=== PATIENT | female | born 1955 | race Caucasian/White ===

== ENCOUNTER 2016-09-24 21:26 | Inpatient (IN) | payer OTHER ==
[~2016-09-24] VITALS: Ht 157.5 cm; Wt 69.9 kg
[~2016-09-24 21:26] MED LIST: ASPI81TA82 PO; ATOR80TA PO; EMPA1TAB15 PO; GABA600T PO; IMDU60TA PO; LEVEMIR SQ; LEVO50TA4 PO; METO25TA3 PO; NOVOINJ SQ; PLAV75TA29 PO
[2016-09-24 21:28] VITALS: BP 180/86; PULSE 91; RESP 18; TEMP 97.9; O2SAT 97
[2016-09-24] MEDS ORDERED: SODIUM CHLORID 0.9% 500 ML INJ 500 ML IV ONE (21:30)
[2016-09-24] MEDS ORDERED: SODIUM CHLORIDE 0.9% FLUSH 10 ML FLUSH IVF PRN (21:30)
[2016-09-24] MEDS ORDERED: NITROGLYCERIN 2% OINT 1 GM PACKET TOP ONE (21:30)
[2016-09-24] MEDS: NITROGLYCERIN 0.4 MG SL 25 TABS/BTL SL SCH ×2 (21:30→21:35)
[2016-09-24 21:31] VITALS: O2SAT 98
--- NOTE | 2016-09-24 21:37 | PD ---
HPI Chief Complaint: Chest Pain Time Seen by Provider: 21:28 Travel History International Travel<30 days: No Contact w/Intl Traveler<30days: No History of Present Illness HPI The patient is a 61 year old female who presents to the [facility] emergency department with a history of chest pain that she reports is a dull aching sensation in the center of her chest that began approximately 30 minutes prior to arrival while she was sitting on the couch. The patient does have a history of coronary artery disease. She last had [address] 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 She reports that she has been taking a baby aspirin daily as well as her Plavix. She did not take the Plavix today she usually takes it before bed. The patient reports that the pain was a 10 out of 10 in severity and similar to her anginal related chest pain in the past. She reports that she has also had 6-7 years ago 2 other stents placed by Dr. Nagy. She reports having a history of acid reflux, however it has now been any worse than usual. The patient's blood sugar prior to arrival was 358, however she reports that she did give her Levemir insulin 40 units at 7:30 PM. She last ate at approximately 6 PM. The patient reports that she took 1 baby aspirin today and was given an additional aspirin by ambulance services. The patient was also given one sublingual nitroglycerin and on arrival her chest pain has improved to a 4 out of 10 in severity. She denies having any associated shortness of breath, nausea, vomiting, diaphoresis. She does report that the pain initially was radiating up into her neck, however this resolved prior to arrival with the administration of one sublingual nitroglycerin. Otherwise on review of systems, the patient denies any recent fevers, cough, congestion, abdominal pain, vomiting, diarrhea, urinary symptoms, or neurologic symptoms. FOR[facility]LY [facility] Past Medical History Narrative Medical The patient's past medical history is significant for diabetes mellitus, history of coronary artery disease status post 4 stents in total being placed, history of hypertension, hyperlipidemia, congestive heart failure, COPD, anxiety and depression, history of acid reflux, history of skin cancer status post resection of the left shoulder, history of arthritis, history of toe amputation, history of sleep apnea, and hypothyroid disorder. Hx Anticoagulant Therapy: Yes (ASA) Arthritis: Yes Asthma: No Autoimmune Disease: No Anxiety: Yes Depression: Yes Heart Rhythm Problems: Yes (PACED ) Cancer: Yes (SKIN CANCER LEFT SHOULDER EXCISED ) Cardiovascular Problems: Yes (CAD, ANGINA, HYPERLIPIDEMIA) High Cholesterol: Yes Chest Pain: No Congestive Heart Failure: Yes COPD: Yes Cerebrovascular Accident: No Diabetes: Yes (TYPE II) Endocrine: Yes Gastrointestinal Disorders: No GERD: Yes Glaucoma: No Genitourinary: Yes Hepatitis: Yes Hiatal Hernia: No Hypertension: Yes Immune Disorder: No Implanted Vascular Access Dvce: Yes Kidney Stones: Yes Musculoskeletal: Yes (LEFT HAND STIFF , RT GREAT TO AND SECOND TOE AMPUTATED ) Neurologic: Yes (NEUROPATHY BOTH FEET, INVOLUNTARY SHAKING TO LEFT ARM, OCCAS TO RIGHT ARM) Psychiatric: Yes Reproductive: No Respiratory: No Integumentary: No Migraines: No Renal Failure: No Seizures: No Sickle Cell Disease: No Sleep Apnea: Yes Thyroid Disease: Yes (HYPOTHYROID) Ulcer: Yes (STOMACH ) Past Surgical History Abdominal Surgery: Yes (VENTRAL HERNIA REPAIR; INCISIONAL HERNIA; LAP CHOLECY 2011) AICD: Yes Arteriovenous Shunt: No Body Medical Devices: CARDIAC STENTS X2, MESH IN ABD Cardiac Surgery: Yes (CARDIAC STENTS X 2 ANGIOPLASTY) Cholecystectomy: Yes Ear Surgery: No Endocrine Surgery: No Eye Surgery: Yes (KALEIGH CATARACT EXTRACTION) Genitourinary Surgery: Yes (BLADDER SUSPENSION ) Gynecologic Surgery: Yes (HYSTERECTOMY ) Hysterectomy: Yes Insulin Pump: No Joint Replacement: No Oral Surgery: No Pacemaker: Yes (PACE MAKER AND DEFIB APR 2015) Thoracic Surgery: No Other Surgery: Yes (skin cancer) Social History Alcohol Use: Yes (NOW SOCIALLY HX OF ALCOHOL ABUSE) Tobacco Use: No Substance Use: No Allergies-Medications (Allergen,Severity, Reaction): Coded Allergies: *MDRO Multi-Drug Resistant Organism (Verified Adverse Reaction, Unknown, 03/21/16) MRSA (wound) - 12/2014, (abd. wound) - 04/2015, 05/2015 Reported Meds & Prescriptions Reported Meds & Active Scripts Active Imdur (Isosorbide Mononitrate) 60 Mg Tab 60 Mg PO BID Metoprolol Tartrate 25 Mg Tab 12.5 Mg PO Q12HR Plavix (Clopidogrel Bisulfate) 75 Mg Tab 75 Mg PO DAILY Reported Z.0.synjardy [id number] 1 Tab Tab 1 Tab PO HS Z.0.novolog Penfill1 100 Unit/Ml Ml 12 Units SQ TID Z.0.levemir 100 Units/Ml Inj 34 Units SQ HS Z.[id number].aspir-8181 Mg 81 Mg Tab 81 Mg PO DAILY Z.0.[id number] M1 600 Mg Tab 600 Mg PO TID PRN Z.0.atorvastatin Ca8 80 Mg Tab 80 Mg PO DAILY Z.0.ocragawswurxy49 50 Mcg Tab 50 Mcg PO DAILY Review of Systems Except as stated in HPI: all other systems reviewed are Neg General / Constitutional: No: Fever Eyes: No: Visual changes HENT: No: Headaches, Rhinorrhea, Congestion Cardiovascular: Positive: Chest Pain or Discomfort, No: Dyspnea on exertion Respiratory: No: Cough, Shortness of Breath Gastrointestinal: No: Nausea, Vomiting, Diarrhea, Abdominal Pain, Indigestion, Loss of Appetite Genitourinary: No: Dysuria Musculoskeletal: No: Pain Skin: No Rash Neurologic: No: Weakness, Focal Abnormalities, Change in Mentation, Slurred Speech, Sensory Disturbance Psychiatric: No: Depression Endocrine: No: Polydipsia Hematologic/Lymphatic: No: Easy Bruising Physical Exam Narrative General: The patient is a well-developed well-nourished female in no acute distress. Head and Neck exam: Head is normocephalic atraumatic. Eyes: EOMI, pupils are equal round and reactive to light. Nose: Midline septum with pink mucous membranes Mouth: Dentition unremarkable. Moist mucus membranes. Posterior oropharynx is not erythematous. No tonsillar hypertrophy. Uvula midline. Airway patent. Neck: No palpable lymphadenopathy. No nuchal rigidity. No thyromegaly. Cardiovascular: Regular rate and rhythm without murmurs, gallops, or rubs. No pulse deficit to the extremities and simultaneous auscultation and palpation of her radial artery. Lungs: Clear to auscultation bilaterally. No wheezes, rhonchi, or rales. Abdomen: Soft, without tenderness to palpation in all 4 quadrants of the abdomen. No guarding, rebound, or rigidity. Normal bowel sounds are audible. No tenderness on palpation of McBurney's point. Extremities: No clubbing, cyanosis, or edema. 2+ pulses in all 4 extremities. No calf tenderness on palpation. Back: No spinous process tenderness to palpation. No costovertebral angle tenderness to palpation. Neurologic Exam: Grossly nonfocal. Skin Exam: No rash noted. Intact skin that is warm and dry. Data Data Last Documented VS Vital Signs Date Time Temp Pulse Resp B/P Pulse Ox O2 Delivery O2 Flow Rate FiO2 09/24/16 22:01 92 18 137/65 93 Nasal Cannula 4 09/24/16 21:28 97.9 Orders Electrocardiogram (09/24/16 21:29) B-Type Natriuretic Peptide (09/24/16 21:29) Ckmb (Isoenzyme) Profile (09/24/16 21:29) Complete Blood Count With Diff (09/24/16 21:29) Comprehensive Metabolic Panel (09/24/16 21:29) Magnesium (Mg) (09/24/16 21:29) Prothrombin Time / Inr (Pt) (09/24/16:29) Act Partial Throm Time (Ptt) (09/24/16:29) Troponin I (09/24/16 21:29) Lipase (09/24/16 21:29) Chest, Single Ap (09/24/16 21:29) Ecg Monitoring (09/24/16:29) Bilateral Bp Monitoring (09/24/16 21:29) Iv Access Insert/Monitor (09/24/16 21:29) Oximetry (09/24/16 21:29) Oxygen Administration (09/24/16 21:29) Nitroglycerin 2% Oint (Nitroglycerin 2% (09/24/16 21:30) Sodium Chloride 0.9% Flush (Ns Flush) (09/24/16 21:30) Nitroglycerin Sl (Nitrostat Sl) (09/24/16 21:30) Sodium Chlorid 0.9% 500 Ml Inj (Ns 500 M (09/24/16 21:30) Pantoprazole Inj (Protonix Inj) (09/24/16 21:45) CKMB (09/24/16 21:46) CKMB% (09/24/16 21:46) Heparin Infusion CHRISTY.Q1H (09/24/16 22:44) Heparin Inj (Heparin Inj) (09/24/16 22:45) Heparin-D5w Inj (Heparin-D5w Inj) (09/24/16 22:45) Act Partial Throm Time (Ptt) (09/24/16 22:44) Prothrombin Time / Inr (Pt) (09/24/16 22:44) Cbc No Diff, Includes Plts (09/24/16 22:44) Cbc No Diff, Includes Plts (09/27/16 06:00) Act Partial Throm Time (Ptt) (09/25/16 05:44) Occult Blood (Hemoccult) Stool (09/24/16 22:44) Admit Order (Ed Use Only) (09/24/16 22:53) Labs Laboratory Tests Test 09/24/16 21:46 White Blood Count 7.9 TH/MM3 Red Blood Count 4.67 MIL/MM3 Hemoglobin 13.7 GM/DL Hematocrit 41.5 % Mean Corpuscular Volume 88.8 FL Mean Corpuscular Hemoglobin 29.4 PG Mean Corpuscular Hemoglobin 33.1 % Concent Red Cell Distribution Width 14.0 % Platelet Count 190 TH/MM3 Mean Platelet Volume 10.0 FL Neutrophils (%) (Auto) 67.9 % Lymphocytes (%) (Auto) 22.9 % Monocytes (%) (Auto) 7.6 % Eosinophils (%) (Auto) 1.0 % Basophils (%) (Auto) 0.6 % Neutrophils # (Auto) 5.4 TH/MM3 Lymphocytes # (Auto) 1.8 TH/MM3 Monocytes # (Auto) 0.6 TH/MM3 Eosinophils # (Auto) 0.1 TH/MM3 Basophils # (Auto) 0.0 TH/MM3 CBC Comment DIFF FINAL Differential Comment Prothrombin Time 10.8 SEC Prothromb Time International 1.0 RATIO Ratio Activated Partial 23.9 SEC Thromboplast Time Sodium Level 138 MEQ/L Potassium Level 3.8 MEQ/L Chloride Level 103 MEQ/L Carbon Dioxide Level 24.6 MEQ/L Anion Gap 10 MEQ/L Blood Urea Nitrogen 17 MG/DL Creatinine 1.24 MG/DL Estimat Glomerular Filtration 44 ML/MIN Rate Random Glucose 368 MG/DL Calcium Level 8.2 MG/DL Magnesium Level 2.0 MG/DL Total Bilirubin 0.5 MG/DL Aspartate Amino Transf 24 U/L (AST/SGOT) Alanine Aminotransferase 29 U/L (ALT/SGPT) Alkaline Phosphatase 114 U/L Total Creatine Kinase 118 U/L Creatine Kinase MB 3.2 NG/ML Troponin I 0.10 NG/ML B-Type Natriuretic Peptide 217 PG/ML Total Protein 6.6 GM/DL Albumin 3.4 GM/DL Lipase 382 U/L [facility] Medical Decision Making Medical Screen Exam Complete: Yes Emergency Medical Condition: Yes Medical Record Reviewed: Yes Interpretation(s) Last Impressions Chest X-Ray 09/24/162128 Signed Impressions: Service Date/Time: Saturday, September 24, 2016 21:39 - CONCLUSION: No acute disease. Nathen Aguilar MD Differential Diagnosis Acute coronary syndrome, versus acid reflux, versus congestive heart failure exacerbation, versus pneumonia, versus pneumothorax, versus aortic dissection Narrative Course During the course of the patients emergency department visit, the patients history, examination, and differential diagnosis were reviewed with the patient. The patient had IV access obtained and blood work sent for analysis. The patient was placed on a director of cardiac rehabilitation with oximetry and blood pressure monitoring. The patient's EKG done on arrival shows a sinus rhythm of 94, ST depression is noted in lead 1, 2, aVL, V2, V3, V4, V5, V6. No acute ST segment elevation is noted. This will be compared to a prior EKG for changes. The patient was initially provided sublingual nitroglycerin every 5 minutes 2 when necessary chest pain, nitroglycerin 1 inch the chest wall, normal saline a 500 mL bolus, Protonix 40 mg IV. The patients laboratory studies were reviewed and remarkable for white count 7.9, hemoglobin 13.7, platelets 190 with a normal differential, CMP is remarkable for creatinine 1.24, glucose 368, CPK 118, troponin I 0.10, BNP 217 Radiology studies were reviewed and remarkable for a chest x-ray that shows no acute abnormality. Given the patient's findings on ECG of ST segment depression and an elevated troponin, this is suspicious for non-STEMI. The patient was started on heparin per ID protocol. The patient continues to be chest pain-free after nitroglycerin sublingual and Nitropaste to the chest wall. The patient will be admitted to the hospitalist. The patients results were discussed with the patient, including the plan of care. I explained that further testing and/ or monitoring is indicated based on the patients history, examination, and/ or laboratory findings. Therefore, I recommended admission for additional evaluation. The patient expressed understanding and was agreeable with this plan. The patient was admitted to the hospital in stable condition and [facility] Physician Communication Physician Communication The patient's case was discussed with Dr. Mccormack who did agree to admit the patient for further evaluation and treatment at this time. Diagnosis Primary Impression: Non-STEMI (non-ST elevated myocardial infarction) Admitting Information Admitting Physician Requests: Admit Mellissa Song MD September 24, 2016 21:37
[2016-09-24] MEDS ORDERED: PANTOPRAZOLE SODIUM 40 MG VIAL IV PUSH ONE (21:45)
[2016-09-24 22:01] VITALS: BP 137/65; PULSE 92; RESP 18; O2SAT 93
[2016-09-24 22:01] LABS: AUTOMATED NEUTROPHIL # 5.4 TH/MM3 (1.8-7.7); BASOPHIL % 0.6 % (0.0-2.0); EOSINOPHIL # 0.1 TH/MM3 (0-0.4); HEMATOCRIT 41.5 % (35.0-46.0); HEMO FLAGS DIFF FINAL; LYMPH % 22.9 % (9.0-44.0); LYMPHOCYTE # 1.8 TH/MM3 (1.0-4.8); MEAN CELL VOLUME 88.8 FL (80.0-100.0); MEAN CORPUSCULAR HEMOGLOBIN 29.4 PG (27.0-34.0); MEAN CORPUSCULAR HGB CONC 33.1 % (32.0-36.0); MONO % 7.6 % (0.0-8.0); NEUT % 67.9 % (16.0-70.0); PLATELET COUNT 190 TH/MM3 (150-450); RED BLOOD COUNT 4.67 MIL/MM3 (4.00-5.30); WHITE BLOOD COUNT 7.9 TH/MM3 (4.0-11.0)
--- NOTE | 2016-09-24 22:05 | RADRPT ---
EXAM DATE/TIME: 09/24/2016 21:39 [facility] COMPARISON: No previous studies available for comparison. INDICATIONS : Chest pain MEDICAL HISTORY : Chronic obstructive pulmonary disease. SURGICAL HISTORY : Coronary artery stent. ENCOUNTER: Initial ACUITY: 1 day PAIN SCORE: 2/10 LOCATION: Bilateral chest FINDINGS: A single view of the chest demonstrates the lungs to be symmetrically aerated without evidence of mas s, infiltrate or effusion. The cardiomediastinal contours are unremarkable. Osseous structures are intact.CONCLUSION: No acute disease. Nathen Aguilar MD on September 24, 2016 at 22:03 Board Certified Radiologist. This report was verified electronically.
[2016-09-24 22:10] LABS: APTT (PATIENT) 23.9 SEC (24.3-30.1); PROTHROMBIN TIME - PATIENT 10.8 SEC (9.8-11.6)
[2016-09-24 22:22] LABS: ANION GAP 10 MEQ/L (5-15); AST (GOT) 24 U/L (15-37); BICARBONATE 24.6 MEQ/L (21.0-32.0); BLOOD UREA NITROGEN 17 MG/DL (7-18); CHLORIDE 103 MEQ/L (98-107); GLOMERULAR FILTRATION RATE 44 ML/MIN (>89); POTASSIUM 3.8 MEQ/L (3.5-5.1); SODIUM (NA) 138 MEQ/L (136-145)
[2016-09-24 22:27] LABS: ALKALINE PHOSPHATASE 114 U/L (45-117); ALT (GPT) 29 U/L (10-53); CREATINE KINASE 118 U/L (26-192); TOTAL BILIRUBIN ADULT 0.5 MG/DL (0.2-1.0)
[2016-09-24 22:40] LABS: CKMB 3.2 NG/ML (0.5-3.6)
[2016-09-24] MEDS ORDERED: HEPARIN SODIUM - IV 10,000 UNITS/10 ML VIAL IV ONE (22:45)
[2016-09-24] MEDS ORDERED: HEPARIN-D5W INJ 250 ML IV SCH (22:45)
[2016-09-24 23:09] LABS: HEMATOCRIT 36.7 % (35.0-46.0); MEAN CELL VOLUME 96.9 FL (80.0-100.0); PLATELET COUNT 206 TH/MM3 (150-450); RED BLOOD COUNT 3.79 MIL/MM3 (4.00-5.30); RED CELL DISTRIBUTION WIDTH 12.6 % (11.6-17.2); REVIEW FLAG FINAL; WHITE BLOOD COUNT 6.5 TH/MM3 (4.0-11.0)
[2016-09-24] MEDS ORDERED: PILL SPLITTER OTHER PRN (23:15)
[2016-09-24 23:23] LABS: APTT (PATIENT) 29.7 SEC (24.3-30.1); PROTHROMBIN TIME - PATIENT 11.2 SEC (9.8-11.6)
[2016-09-25] VITALS (24 sets, daily range): BP systolic 126–152; BP diastolic 58–90; PULSE 57–75; RESP 16–18; TEMP 97.5–98.7; O2SAT 96–100
[2016-09-25 04:38] LABS: APTT (PATIENT) 51.5 SEC (24.3-30.1)
[2016-09-25 05:31] LABS: CKMB 18.1 NG/ML (0.5-3.6)
[2016-09-25] MEDS ORDERED: LEVOTHYROXINE SODIUM 50 MCG TAB PO SCH (06:00)
[2016-09-25] MEDS: NITROGLYCERIN 2% OINT 1 GM PACKET TOP SCH ×2 (06:08→11:31)
[2016-09-25] MEDS ORDERED: DEXTROSE 50% IN WATER 50 ML VIAL(D50) IV PUSH PRN (07:00)
[2016-09-25] MEDS ORDERED: GLUCAGON 1 MG/ML VIAL OTHER PRN (07:00)
[2016-09-25] MEDS ORDERED: PLEASE DISCONTINUE PREVIOUS SUPPLEMENTAL SCALE INSULIN ORDERS ONE (07:00)
--- NOTE | 2016-09-25 09:08 | MB ---
cc: KELLY ROMEO MD DATE OF CONSULTATION 09/25/2016 INDICATION [id number] LA. HISTORY OF PRESENT ILLNESS This is a 61-year-old female. She has a prior history of known heart disease and percutaneous intervention back in February of 2016. She presents to the emergency department with acute onset of substernal chest pain. She stated the pain was about 10/10 and similar to her prior anginal equivalent. She has diabetes, hyperlipidemia and hypertension. She is currently chest pain-free, but her troponin went from 0.10 up to 5.36. We are consulted for further recommendations. PAST MEDICAL HISTORY/PAST SURGICAL HISTORY 1. Diabetes. 2. History of coronary disease with prior percutaneous intervention. 3. Hypertension. 4. Hyperlipidemia. 5. CHF. 6. COPD. 7. Anxiety, depression. 8. Gastroesophageal reflux disease. 9. Skin cancer status post resection. 10. Arthritis. 11. Toe amputation. 12. Sleep apnea. 13. Hypothyroidism. 14. Neuropathy. 15. Hiatal hernia. 16. Incisional hernia. 17. Laparoscopic cholecystectomy in 2011. 18. Bilateral cataracts. 19. Bladder suspension. 20. Pacemaker and defibrillator in April of 2015. SOCIAL HISTORY Does report occasional alcohol use. Denies any tobacco or drug use. ALLERGIES No known drug allergies. MEDICATIONS 1. NovoLog. 2. Levemir. 3. Aspirin. 4. Gabapentin. 5. Atorvastatin. 6. Levothyroxine. FAMILY HISTORY Denies any family history of early coronary disease or sudden cardiac . REVIEW OF SYSTEMS A 12-point review systems was performed, negative unless otherwise noted in the History of Present Illness. PHYSICAL EXAMINATION VITAL SIGNS: Temperature is 98.7, pulse 21, blood pressure 152/74 mmHg. GENERAL: Alert and oriented x 3, in no acute distress. HEENT: Exam shows pupils round, reactive to light and accommodation. Extraocular movements are intact. No elevation in jugular venous distention. No thyromegaly or lymphadenopathy. No carotid bruits. LUNGS: Clear to auscultation bilaterally. CARDIOVASCULAR: Regular rate and rhythm without murmurs, rubs or gallops. ABDOMINAL EXAM: Nontender, nondistended. Good bowel sounds. No hepatosplenomegaly. EXTREMITIES: No clubbing, cyanosis or edema. Decreased pulses throughout. Cranial nerves intact. Motor and sensory grossly intact. LABORATORY DATA Sodium 138, potassium 3.8, BUN 17, creatinine 1.24. Troponin is high at 5.36, BNP is 217, INR is 1. WBC 6.5, hemoglobin is 12.1, platelet count is 206. ELECTROCARDIOGRAM Sinus rhythm, ST depression. Anterolateral leads with poor R-wave progression. ASSESSMENT 1. [id number] LA. 2. History of prior percutaneous intervention to the left circumflex coronary artery in February of 2016. There is severe multivessel disease. 3. Diabetes. 4. Hypertension. 5. Hyperlipidemia. PLAN We have been attempting to try to medically manage her symptoms. She did fairly well since last February but now has recurrence of her symptoms. She had prior percutaneous intervention of the circumflex but both the right coronary and the left anterior descending coronary also had significant disease. The right coronary is a very small caliber size, not sure if it is amendable to percutaneous intervention and left anterior descending had a calcified, angulated bend in the mid-segment. Given her elevated troponin symptoms, we are going to need to repeat cardiac catheterization. We will have to assess to that point whether there is a revascularization strategy, either percutaneously or bypass. We will try to determine timing for heart catheterization, either later today or tomorrow. MD CARLOS Silva/SSB /8:17 AM /8:47 AM MTDD
[2016-09-25] MEDS: MEDIUM DOSE INSULIN NOVOLOG SUPPLEMENTAL SCALE SQ SCH ×3 (09:14→21:28)
[2016-09-25] MEDS: ATORVASTATIN 80 MG TAB PO SCH (09:15)
[2016-09-25] MEDS: METOPROLOL TARTRATE 25 MG TAB PO SCH ×2 (09:15→21:29)
--- NOTE | 2016-09-25 09:44 | HHI.HP ---
HPI Service [facility] Hospitalists Primary Care Physician Kavin Messer, DO Admission Diagnosis Non-STEMI Chief Complaint: Chest pain Travel History International Travel<30 Days: No Contact w/Intl Traveler <30 Da: No Traveled to Known Affected Are: No History of Present Illness Ms. Montero is a 61 y/o female with CAD with hx of previous stenting x 4 with the last intervention in 02/2016, poorly controlled diabetes, HTN and hyperlipidemia who presented to the ED at [facility] on 09/24/16 with complaints of chest pain which is described as a dull aching sensation in the center of her chest that began approximately 30 minutes prior to arrival while she was sitting on the couch. The patient reported that the pain initially was a 10 out of 10 in severity and similar to her anginal related chest pain in the past. The patient was given ASA and one sublingual nitroglycerin en route to the hospital and on arrival her chest pain had improved in severity. She denies having any associated shortness of breath, nausea, vomiting, or diaphoresis. She does report that the pain initially was radiating up into her neck, however this resolved prior to arrival with the administration of one sublingual nitroglycerin. Pt has been following outpt with Dr. Laws and recently had an outpt Lexiscan on 09/07/16 which noted mildly reduced LV systolic function, moderate inferolateral and inferoapical infarct with minimal herson-infarct ischemia extending into the mid inferior wall. She reports that she has been taking a baby aspirin daily as well as her Plavix. Pts labs at admission noted that her Troponin has trended up from 0.10 to 5.36. She was started on Nitro, heparin gtt, BB, statin. She has been seen by Cardiology and is planned for [facility] for tomorrow. Pt is currently chest pain free. The patient's blood sugar in the ED was 368, however she reports that she did give her Levemir insulin 40 units at 7:30 PM. Her most recent blood sugar is 295 this morning. She is on NovoLog SSI. The patient denies any recent fevers, cough, congestion, abdominal pain, vomiting, diarrhea, urinary symptoms, or neurologic symptoms. Review of Systems Constitutional: DENIES: Diaphoretic episodes, Fever, Dizziness Eyes: DENIES: Vision loss Ears, nose, mouth, throat: DENIES: Hearing loss Respiratory: DENIES: Cough, Shortness of breath Cardiovascular: COMPLAINS OF: Chest pain, DENIES: Palpitations, Dyspnea on Exertion, Lower Extremity Edema Gastrointestinal: DENIES: Abdominal pain, Nausea, Vomiting Genitourinary: DENIES: Dysuria Musculoskeletal: DENIES: Neck pain Integumentary: DENIES: Rash Neurologic: DENIES: Headache Psychiatric: DENIES: Confusion Past Family Social History Past Medical History Diabetes mellitus, poorly controlled (Hgb A1C 10.5% in 07/2016) with diabetic nephropathy, retinopathy and neuropathy HTN Hyperlipidemia CAD s/p PTCA with stent x 4 Unstable angina Macular degeneration Hx of skin cancer on left shoulder Obesity GERD Depression Arthritis Obstructive sleep apnea Hypothyroidism Past Surgical History [facility] 02/2016 --> severe multivessel CAD, successful PCI with RIYA x 2 to the left circumflex, normal left sided filling pressure. [facility] and stent placement x [address] Nagy Ventral hernia repair 2013 Incisional hernia repair Cholecystectomy 2011 Bladder suspension Cataract surgery Total abdominal hysterectomy Skin cancer removal Abdominal hernia repair and panniculectomy 2014 Reported Medications -Imdur 60 Mg PO BID -Plavix 75 Mg PO DAILY -Synjardy [id number] 1 Tab PO HS -Aspirin 81 Mg PO DAILY --Ranexa 500mg PO BID --HumaLOG KwikPen 10 Units prior to meals if BS greater than 150 --Levemir 50 Units SQ HS --Gabapentin 600 Mg PO HS PRN --Atorvastatin 80 Mg PO HS --Levothyroxine 112 Mcg PO DAILY Allergies: Coded Allergies: *MDRO Multi-Drug Resistant Organism (Verified Adverse Reaction, Unknown, 03/21/16) MRSA (wound) - 12/2014, (abd. wound) - 04/2015, 05/2015 Family History Brother had CAD/CABG in his 60's Social History Denies any alcohol, tobacco or illicit drug use Pt lives alone. She has one grown daughter. Pt works as a station cashier Physical Exam Vital Signs Vital Signs Date Time Temp Pulse Resp B/P Pulse Ox O2 Delivery O2 Flow Rate FiO2 09/25/16 07:00 97.5 71 17 152/74 96 09/25/16 06:00 65 09/25/16 04:36 98.0 73 16 145/90 100 09/25/16 04:00 139/65 99 09/25/16 03:19 73 18 148/65 100 09/25/16 02:34 71 18 129/60 99 Nasal Cannula 2 09/25/16 01:05 75 18 126/61 99 09/24/16 22:01 92 18 137/65 93 Nasal Cannula 4 09/24/16 21:35 18 09/24/16 21:33 92 09/24/16 21:31 98 Room Air 09/24/16 21:31 98 Room Air 09/24/16 21:28 97.9 91 18 180/86 97 Physical Exam GENERAL: This is a well-nourished, well-developed patient, in no apparent distress. HEENT: Atraumatic. Normocephalic. No temporal or scalp tenderness. No scleral icterus. Airway patent. NECK: Trachea midline, supple, nontender. CARDIO: Regular. RESP: CTA bilaterally. No wheezes, rales, or rhonchi. ABD: +BS, soft, non-tender, nondistended. EXT: Extremities without clubbing, cyanosis, or edema. NEURO: Awake and alert. Motor and sensory grossly within normal limits. Normal speech. Laboratory Laboratory Tests Test 09/24/16 09/24/16 09/25/16 09/25/16 21:46 23:00 00:05 04:11 White Blood Count 7.9 6.5 Red Blood Count 4.67 3.79 Hemoglobin 13.7 12.1 Hematocrit 41.5 36.7 Mean Corpuscular Volume 88.8 96.9 Mean Corpuscular Hemoglobin 29.4 32.0 Mean Corpuscular Hemoglobin 33.1 33.0 Concent Red Cell Distribution Width 14.0 12.6 Platelet Count 190 206 Mean Platelet Volume 10.0 9.3 Neutrophils (%) (Auto) 67.9 Lymphocytes (%) (Auto) 22.9 Monocytes (%) (Auto) 7.6 Eosinophils (%) (Auto) 1.0 Basophils (%) (Auto) 0.6 Neutrophils # (Auto) 5.4 Lymphocytes # (Auto) 1.8 Monocytes # (Auto) 0.6 Eosinophils # (Auto) 0.1 Basophils # (Auto) 0.0 CBC Comment DIFF FINAL Differential Comment Prothrombin Time 10.8 11.2 Prothromb Time International 1.0 1.0 Ratio Activated Partial 23.9 29.7 51.5 Thromboplast Time Sodium Level 138 Potassium Level 3.8 Chloride Level 103 Carbon Dioxide Level 24.6 Anion Gap 10 Blood Urea Nitrogen 17 Creatinine 1.24 Estimat Glomerular Filtration 44 Rate Random Glucose 368 Calcium Level 8.2 Magnesium Level 2.0 Total Bilirubin 0.5 Aspartate Amino Transf 24 (AST/SGOT) Alanine Aminotransferase 29 (ALT/SGPT) Alkaline Phosphatase 114 Total Creatine Kinase 118 153 256 Creatine Kinase MB 3.2 18.1 Troponin I 0.10 1.15 5.36 B-Type Natriuretic Peptide 217 Total Protein 6.6 Albumin 3.4 Lipase 382 Creatine Kinase MB % 7.1 Result Diagram: 09/24/16 2300 09/24/162145 Imaging Last Impressions Chest X-Ray 09/24/162128 Signed Impressions: Service Date/Time: Saturday, September 24, 2016 21:39 - CONCLUSION: No acute disease. Nathen Aguilar MD Septic Shock Reassessment Heart: Regular rate and rhythm Lungs: Clear Skin: Warm Assessment and Plan Problem List: (1) Non-STEMI (non-ST elevated myocardial infarction) Status: Acute Plan: - Pt admitted with chest pain and found to have elevated CE/NSTEMI - Pt has a hx of CAD and previous C 02/2016 --> severe multivessel CAD, successful PCI with RIYA x 2 to the left circumflex. - Pt had Nitro paste applied - Heparin gtt. - BB/Statin - Cardiology is following and pt is planned for [facility] for tomorrow. - 2D echo ordered - Discussed the case with Dr. Laws and pt to be resumed on her Imdur, Ranexa and Plavix as well. - Telemetry - Monitor labs - Monitor clinical status closely - DVT prophylaxis (2) CAD (coronary artery disease) Status: Chronic Plan: - Pt with hx of CAD and unstable angina. - Pt had recently been started on Ranexa 500mg po BID and also takes Imdur 60mg po BID - See. above. (3) Diabetes Status: Chronic Plan: - NovoLog SSI - Levemir - Accu checks - Gabapentin 600mg po HS PRN for neuropathic pain resumed from home meds (4) Hypertension Status: Chronic Plan: - Pt has been started on Metoprolol 12.5mg po BID - Monitor (5) Hypothyroid Status: Chronic Plan: - Resume home meds Assessment and Plan Patient examined. Assessment and plan formulated with Cintia Bella PA-C. I agree with the above. Case d/w Dr. Laws, Cardiology. Pt planned for [facility] Pt currently on heparin drip Pt receiving imdur, renexa, plavix, metoprolol, lipitor Physician Certification 2 Midnight Certification Type: Admission for Inpatient Services Order for Inpatient Services The services are ordered in accordance with Medicare regulations or non- Medicare payer requirements, as applicable. In the case of services not specified as inpatient-only, they are appropriately provided as inpatient services in accordance with the 2-midnight benchmark. Estimated LOS (days): 2 2 days is the estimated time the patient will need to remain in the hospital, assuming treatment plan goals are met and no additional complications. Post-Hospital Plan: Not yet determined Problem Qualifiers (1) Diabetes: Qualified Code: E11.8 - Type 2 diabetes mellitus with complication, with long- term current use of insulin Cintia Bella September 25, 2016 09:44 Prosper Shaw DO September 25, 2016 12:05
--- NOTE | 2016-09-25 11:13 | EKG ---
Date Performed: 09/25/2016 Time Performed: 04:52:48 PTAGE: 61 years EKG: Sinus rhythm Lateral ST-T changes are nonspecific Borderline ECG PREVIOUS TRACING : 09/25/2016 03.17 DOCTOR: Nacho Melendez Interpretating Date/Time 09/25/2016 11:12:11
--- NOTE | 2016-09-25 11:14 | EKG ---
Date Performed: 09/25/2016 Time Performed: 03:17:36 PTAGE: 61 years EKG: Sinus rhythm NONSPECIFIC ST & T-WAVE ABNORMALITY BORDERLINE ECG PREVIOUS TRACING : 09/24/2016 21.31 DOCTOR: Nacho Melendez Interpretating Date/Time 09/25/2016 11:12:51
[2016-09-25] MEDS ORDERED: SIMETHICONE 125 MG CHEWABLE TAB PO ONE (11:15)
--- NOTE | 2016-09-25 11:17 | EKG ---
Date Performed: 09/24/2016 Time Performed: 21:31:07 PTAGE: 61 years EKG: Sinus rhythm ST DEPRESSION, CONSIDER SUBENDOCARDIAL INJURY ABNORMAL ECG PREVIOUS TRACING : 03/21/2016 05.33 DOCTOR: Nacho Melendez Interpretating Date/Time 09/25/2016 11:14:21
[2016-09-25] MEDS: CLOPIDOGREL 75 MG TAB PO SCH (11:30)
[2016-09-25] MEDS: PANTOPRAZOLE SODIUM 40 MG VIAL IV PUSH SCH (11:31)
[2016-09-25] MEDS: SODIUM CHLOR 0.9% 1000 ML INJ 1,000 ML IV SCH ×2 (11:32→21:31)
[2016-09-25] MEDS: RANOLAZINE 500 MG EXTENDED RELEASE TAB PO SCH ×2 (11:37→21:28)
[2016-09-25 12:37] LABS: CKMB 19.2 NG/ML (0.5-3.6)
[2016-09-25 13:51] LABS: APTT (PATIENT) 100.4 SEC (24.3-30.1)
[2016-09-25] MEDS ORDERED: HEPARIN-NS/PF INJ 500 ML ONE (13:53)
[2016-09-25] MEDS: SIMETHICONE 125 MG CHEWABLE TAB PO SCH ×2 (14:00→21:29)
[2016-09-25] MEDS ORDERED: MIDAZOLAM HCL 2 MG/2 ML VIAL ONE (14:01)
--- NOTE | 2016-09-25 14:58 | EC ---
Study Study Date:09/25/2016 STUDY CONCLUSIONS SUMMARY - Left ventricle: The cavity size was normal. Wall thickness was normal. Systolic function was at the lower limits of normal. The estimated ejection fraction was in the range of 50% to 55%. Mild hypokinesis of the inferior myocardium. - Aortic valve: Transvalvular velocity was minimally increased. There was mild stenosis. Valve area: 1.99cm^2 (Vmax). - Mitral valve: Mild regurgitation. - Tricuspid valve: Mild regurgitation. If LV function is below 40, please consider prescribing an ACEI or ARB or document rationale for non-use. PROCEDURE DATA STUDY STATUS: Elective. Procedure: Transthoracic echocardiography. Image quality was good. Scanning was performed from the parasternal, apical, and subcostal acoustic windows. Study completion: The patient tolerated the procedure well. Transthoracic echocardiography. M-mode, complete 2D, complete spectral Doppler, and color Doppler. Height: Height: 62in. Weight: Weight: 153.7lb. Body mass index: BMI: 28.2kg/m^2. Body surface area: BSA: 1.71m^2. Patient status: Inpatient. CARDIAC ANATOMY LEFT VENTRICLE: The cavity size was normal. Wall thickness was normal. Systolic function was at the lower limits of normal. The estimated ejection fraction was in the range of 50% to 55%. Regional wall motion abnormalities: Mild hypokinesis of the inferior myocardium. AORTIC VALVE: Trileaflet; mildly thickened, moderately calcified leaflets. Doppler: Transvalvular velocity was minimally increased. There was mild stenosis. No regurgitation. Valve area: 1.99cm^2 (Vmax). Indexed valve area: 1.16cm^2/m^2 (Vmax). AORTA: Aortic root: The aortic root was poorly visualized and normal in size. MITRAL VALVE: Structurally normal valve. Doppler: Transvalvular velocity was within the normal range. There was no evidence for stenosis. Mild regurgitation. Valve area by pressure half-time: 4.07cm^2. Indexed valve area by pressure half-time: 2.38cm^2/m^2. Peak gradient: 3mm Hg (D). LEFT ATRIUM: The atrium was normal in size. RIGHT VENTRICLE: The cavity size was normal. Wall thickness was normal. PULMONIC VALVE: Doppler: Transvalvular velocity was within the normal range. There was no evidence for stenosis. No regurgitation. TRICUSPID VALVE: Structurally normal valve. Doppler: Transvalvular velocity was within the normal range. Mild regurgitation. Peak gradient: 29mm Hg (D). PULMONARY ARTERY: The main pulmonary artery was normal-sized. Systolic pressure was within the normal range. RIGHT ATRIUM: The atrium was normal in size. PERICARDIUM: There was no pericardial effusion. SYSTEMIC VEINS: Inferior vena cava: The vessel was normal in size. Patient weight: 153.7lb _Ejection fraction:_ 65-75% _Fractional shortening:_ 32% up to 5Kg 5-11.5Kg 11.6-22.9Kg 23-45Kg 45-57Kg Aortic Root 7-13 <17 13-22 17-27 17-27 LA diam 6-13 <23 24-38 33-47 37-40 RVID 10-17 7-15 7-15 7-18 8-17 LVIDd 12-22 <32 24-38 33-47 37-40 LVPW 2-4 3-6 5-7 6-8 7-8 IVS 2-4 3-6 5-7 6-8 7-8 BASIC MEASUREMENTS ADULT NORMAL Left ventricle LV internal dimension, ED, chordal 50.4 mm 43-52 level, PLAX LV internal dimension, ES, chordal 34.7 mm 23-38 level, PLAX Fractional shortening, chordal level, 31 % >29 PLAX LV posterior wall thickness, ED 10.3 mm IVS/LVPW ratio, ED 1.01 <1.3 Volume, ED, MOD, 1-plane 119 ml Volume, ES, MOD, 1-plane 51 ml Ejection fraction, MOD, 1-plane 57 % Stroke volume, MOD, 1-plane 68 ml Volume index, ED, MOD, 1-plane 70 ml/m^2 Volume index, ES, MOD, 1-plane 30 ml/m^2 Stroke index, MOD, 1-plane 39.8 ml/m^2 Ventricular septum Septal thickness, ED 10.4 mm Aortic valve Leaflet separation 18 mm 15-26 Left atrium Anterior-posterior dimension 39 mm Anterior-posterior dimension index *2.28 cm/m^2 <2.2 Right ventricle RV internal dimension, ED, PLAX *18.5 mm 19-38 BASIC MEASUREMENTS ADULT NORMAL Aortic valve Leaflet separation 18 mm 15-26 Aorta Root diameter, ED 30 mm 20-37 DOPPLER MEASUREMENTS ADULT NORMAL Aortic valve Peak velocity, S 126 cm/s Valve area, Vmax 1.99 cm^2 Valve area index, Vmax 1.16 cm^2/m^2 Mitral valve Peak E-wave velocity 90.3 cm/s Peak A-wave velocity 69.6 cm/s Pressure half-time 54 ms Peak gradient, D 3 mm Hg Peak E/A ratio 1.3 Valve area, pressure half-time 4.07 cm^2 Valve area index, pressure half-time 2.38 cm^2/m^2 Tricuspid valve Peak gradient, D 29 mm Hg Maximal inflow velocity 271 cm/s Pulmonic valve Peak velocity, S 89.6 cm/s LEGEND: Mean values are shown as u=mean value. Asterisk (*) narayan values outside specified normal range. Prepared and signed by Dion Laws [id number]
[2016-09-25] MEDS ORDERED: LORazepam 2 MG/ML VIAL IV PRN (15:00)
[2016-09-25] MEDS ORDERED: SODIUM CHLOR 0.9% 250 ML INJ 250 ML IV PRN (15:00)
[2016-09-25] MEDS ORDERED: ATROPINE SULFATE 1 MG/ML VIAL IV PRN (15:00)
[2016-09-25] MEDS ORDERED: LIDOCAINE HCL 1% 50 ML VIAL INFIL PRN (15:00)
[2016-09-25] MEDS ORDERED: MISC INFORMATION XX ONE (15:00)
[2016-09-25] MEDS ORDERED: BACITRACIN OINT 0.9 GM PKT TOP ONE (15:00)
--- NOTE | 2016-09-25 15:07 | CATHPROC ---
Cute Attack HIS Report Study Information Study Number Admission Scheduled Start Study Start [id number] 09/24/2016 09/25/2016 Sep 25 2016 1:56PM Study Type Left/Possible PCI Referring Institution Admit Source Facility Department 1 Emergency department [facility] - Process Coach Physician and Clinical Staff Initial Dion Ward Solution Sales Senior Executive Александр Bazzi,RAYMUNDO Recorder Maribell Gaytan,TRUST ADVISOR TECH2 Scrub Annika Treadwell,IMPLEMENTATION SPECIALIST PAYROLL TECH2 Procedures Performed Procedure Location (Site) Vessel Name Coronary Angiograms LCA Left Coronary Coronary Angiograms RCA Right Coronary Equipment Time Outboard Motor Assembler Description Size Mfg Part Number Used/Scraped TRANSDUCER, TRUWAVE 13:58 BAIN BEAR * [id number] Used W/STOCKCOCK 14:40 DAIG/ST. REBA MEDICAL ANGIOSEAL, FR6 VIP FR 6 [id number] Used MEDICAL CONCEPT DRAPE, RADIAL FEMORAL FULL 13:58 * [id number] Used DEVELOPMENT BODY 13:58 Patient Feed INDUSTRIES PACK, CCL CUSTOM * [id number] Used 13:58 [employer] SUPPORT, ARTERIAL ADULT [id number] Used 13:58 Patient Feed PACER PEN, SKIN DUAL W/ RULER * [id number] Used 13:58 [employer] WIRE, EXCHANGE 260CM 3MMJ 260CM [id number] Used 13:58 [employer] OMNIPAQUE, 350 MG, 100ML 100ML [id number] Used 13:58 [employer] BLANKET,WARM AIR CCL * [id number] Used 14:29 TERUMO MEDICAL SHEATH, FR6 TERUMO (10CM) FR 6 [id number] Used Scrap: SHEATH, FR6 RADIAL PRELUDE 13:58 [employer] FR 6 [id number] Procedure EASE 11CM Aborted Equipment Model, Serial, Lot Number and Expiration Data Description Model Number Serial Number Lot Number Expiration Date ANGIOSEAL, FR6 VIP [id number] 07-18-2017 History: Current Medications Medication Dosage/Unit Route Frequency Last Date/Time Taken Imdur PLAVIX ASA Insulin Statins (any) Synthroid History: Allergies Allergy Reaction *MDRO Multi-Drug Resistant Organism History: Risk Factors Family History of Hypertension Dyslipidemia Previous [place] Previous Heart Failure Premature CAD Yes Yes Yes Yes No Prior Valve Prior PCI Prior PCIDate Prior CABG Surgery No Yes 02/19/2016 No Cerebrovascular Peripheral Artery Chronic Lung On Dialysis Diabetes Diabetes Therapy Disease Disease Disease No No Yes No Yes Insulin History: Symptoms/Diagnosis Selection Items Chest pain History: CV Disease Selection Items Known CAD TN History: Stress Tests Stress or Imaging Studies Performed Yes Standard Exercise Stress Test No Stress Echo No Stress Test SPECT Stress Test SPECT Result Stress Test SPECT Ischemia Risk/Extent Yes Positive Intermediate History: Other Disease Selection Items Cancer Gerd History: Other Current Smoker No Labs Hgb (g/dl) Hct (%) RBC (MIL/MM3) WBC (l/cumm) Platelets (thousands) 12.00-18.00 37.00-55.00 4.80-6.20 4.80-10.80 140.00-450.00 12.1 36.7 4.6 6.5 206 Glucose (mg/dl) BUN (mg/dl) Creatinine (mg/dl) BUN:Creatinine (1:x) 60.00-110.00 8.00-20.00 0.10-9.00 10.00-20.00 368 17 1.2 14.2 Na (meq/l) K (meq/l) Cl (meq/l) CO2 (mmol/L) 138.00-146.00 3.80-5.10 101.00-111.00 23.00-30.00 138 3.8 103 24.6 Troponin I (ng/ml) CPK (u/l) CPK-MB (ng/ML) 0.40-2.30 37.00-289.00 0.00-7.00 5.36 118 3.2 Medication Medication Total Dose (Bolus/Oral) Medication Total Dosage/Unit 1% XYLOCAINE 20 mL FENTANYL 25 mcg VERSED 2 mg Medications (Bolus/Oral) Medication Time Given Dosage/Unit Administered By Reason VERSED 09/25/2016 2:14:41 PM 1 mg Александр Bazzi 1 mg VERSED given in lab by Александр Bazzi, RN in Right Antecubital via Peripheral IV. Ordered by Dion Tobias. FENTANYL 09/25/2016 2:14:55 PM 25 mcg Александр Bazzi 25 mcg FENTANYL given in lab by Александр Bazzi, RN in Right Antecubital via Peripheral IV. Ordered by Dion Laws. 1% XYLOCAINE 09/25/2016 2:19:31 PM 20 mL Dion Laws 20 mL 1% XYLOCAINE given in lab by Dion Laws in Right Radial via Subcutaneous. Ordered by Dion Laws. VERSED 09/25/2016 2:31:36 PM 1 mg Александр Bazzi 1 mg VERSED given in lab by Александр Bazzi, RN in Right Antecubital via Peripheral IV. Ordered by Dion Tobias. Medication (Drip) Medication Time Given Dosage/Unit Concentration/Unit Diluent (ml) Solution IV Solutions 09/25/2016 2:00:11 PM 0 mL (IV) 500 NaCl .9 Patient arrived on IV Solutions given by Александр Bazzi, RAYMUNDO in Right Hand via Peripheral IV. Pump/Dri p Flow = 20 ml/hr using NaCl .9. Initial Case Assessment Cardiovascular HR Rhythm NIBP Chest Pain 65 SR 155/80 0 Circulatory - Right Pulses Dorsalis Pedis Femoral Radial 2 2 2 Scale (0,1,2,3,4,d) Scale (0,1,2,3,4,d) Neurological State Oriented to time-place- Alert Moves all extremities person Respiration - General Respiration Rate SpO2 (%) (B/min) 20 98 Final Case Assessment Cardiovascular HR Rhythm NIBP Chest Pain 62 sr 124/58 0 Circulatory - Right Pulses Dorsalis Pedis Femoral 2 2 Scale (0,1,2,3,4,d) Circulatory - Left Pulses Dorsalis Pedis Femoral 2 2 Scale (0,1,2,3,4,d) Neurological State Oriented to time-place- Alert Moves all extremities person Respiration - General Respiration Rate SpO2 (%) O2 (lpm) (B/min) 15 98 2 Chronological Log Time Study Chronological Log 13:52:15 Patient arrived via Bed. 13:52:16 Patient Name, D.O.B, / Armband Verified By R.N. Vitals capture started with the following parameters, Patient=Adult, Interval=5 min, Initial Pr owpnwd=695 mmHg, 13:55:54 Deflation Rate=5 mmHg 13:56:28 HR=65 bpm, HDFX=128/80 mmhg, SpO2=98.0 %, Resp=15 B/min, Pain=0, Mehul=10, Snyder=2 13:58:40 Reference ECG taken 13:59:34 Pre-op and post- op instructions given; patient acknowledges understanding of instructions. Verbal Stimulation=~VERBAL~ Physical Stimulation=~PHYSICAL~ Airway=~AIRWAY~ Respiration=~RESPIR ATION~ 13:59:36 TOTAL=~TOTAL~. (0=absent, 1=limited, 2=present) 13:59:38 Patient has been NPO for More than 6Hrs. 13:59:38 Skin Breakdown- 13:59:40 Tay Prominences Protected 13:59:45 A # 20 IV was noted in the Antecubital (right). Grade = PATENT Patient arrived on IV Solutions given by Александр Bazzi RN in Right Hand via Peripheral IV. Pu mp/Drip Flow = 20 ml/hr 14:00:11 using NaCl .9. 14:00:37 History and physical on the chart or being dictated. Assessment: Initial Case, HR=65 BPM, Rhythm=SR, TADH=251/80 mmhg, Chest Pain=0 Right Pulses: Tramaine Ped=2, Femoral=2, Radial=2 14:00:38 Neurological: State=Alert, Ox3, SPEAR Respiration: Resp=20 B/min, SpO2=98 % 14:01:33 HR=65 bpm, NIDU=841/77 mmhg, SpO2=97.0 %, Resp=14 B/min, Pain=0, Mehul=10, Snyder=2 14:03:00 Right groin and right wrist prepped with 2% chlorhexidine, and with a 3 min. waiting time. 14:06:34 HR=66 bpm, UCGD=719/73 mmhg, SpO2=97.0 %, Resp=16 B/min 14:07:39 Pressure channel 1 zeroed. 14:08:06 MD paged 14:11:33 HR=66 bpm, PRWY=271/76 mmhg, SpO2=96.0 %, Resp=16 B/min 14:12:38 MD arrived. 14:14:41 1 mg VERSED given in lab by Александр Bazzi, RAYMUNDO in Right Antecubital via Peripheral IV. Orde red by Dion Laws. 14:14:55 25 mcg FENTANYL given in lab by Александр Bazzi RN in Right Antecubital via Peripheral IV. Ordered by Dion Laws. 14:16:34 HR=64 bpm, YPSB=639/65 mmhg, SpO2=94.0 %, Resp=16 B/min Time Out. Correct patient, correct procedure,correct physician, power injector not loaded with contrast with surgical 14:18:40 team present. Time Out Concurred by MD and individual staff in procedure 14:19:30 Case Start 14:19:31 20 mL 1% XYLOCAINE given in lab by Dion Laws in Right Radial via Subcutaneous. Ordered by Dion Laws. 14:21:33 HR=61 bpm, CWPD=352/60 mmhg, SpO2=97.0 %, Resp=14 B/min, Pain=0, Mehul=10, Snyder=2 14:26:30 HR=60 bpm, AKNQ=242/63 mmhg, SpO2=98.0 %, Resp=15 B/min 14:31:31 HR=68 bpm, CJYV=420/61 mmhg, SpO2=99.0 %, Resp=10 B/min 14:31:36 1 mg VERSED given in lab by Александр Bazzi, RN in Right Antecubital via Peripheral IV. Orde red by Dion Laws. 14:31:41 A SHEATH, FR6 TERUMO (10CM) FR 6 was advanced into the Fem Art (right) using the Percutaneo us technique. A JR 4.0 INFINITI CATHETER FR 6 was advanced over a wire. OMNIPAQUE, 350 MG, 100ML 100ML was us ed for 14:32:31 injections. Recorded Pressure: LV, HR=60, Condition=Condition 1 14:32:52 (Left Ventricle) LV 117/4/16 Recorded Pressure: LV, Ao, HR=61, Condition=Condition 1 14:32:54 (Left Ventricle) LV 115/3/12, (Aorta) Ao 115/49/76 14:34:36 The RCA was injected and visualized at various angles. OMNIPAQUE, 350 MG, 100ML 100ML used . 14:34:45 Catheter was removed A JL 3.5 INFINITI CATHETER FR 6 was advanced over a wire. OMNIPAQUE, 350 MG, 100ML 100ML was us ed for 14:35:17 injections. 14:36:32 HR=60 bpm, EZMC=069/63 mmhg, SpO2=97.0 %, Resp=12 B/min, Pain=0, Mehul=10, Snyder=2 14:36:58 The LCA was injected and visualized at various angles. OMNIPAQUE, 350 MG, 100ML 100ML use d. 14:38:43 Catheter was removed 14:40:29 An injection in the Fem Art (right) was made through the SHEATH, FR6 TERUMO (10CM) FR 6. 14:40:50 ANGIOSEAL, FR6 VIP FR 6 placement in the Fem Art (right) 14:40:59 Sterile dressing applied to site 14:41:01 No case complications noted. 14:41:31 HR=61 bpm, UQVA=273/58 mmhg, SpO2=98.0 %, Resp=9 B/min 14:42:20 Case End 14:42:25 Cine recording checked. Assessment: Final Case, HR=62 BPM, Rhythm=sr, DUHQ=897/58 mmhg, Chest Pain=0 Right Pulses: Tramaine Ped=2, Femoral=2 14:42:26 Left Pulses: Tramaine Ped=2, Femoral=2 Neurological: State=Alert, Ox3, SPEAR Respiration: Resp=15 B/min, SpO2=98 %, O2=2 lpm 14:46:32 HR=60 bpm, MQWZ=386/64 mmhg, SpO2=98.0 %, Resp=17 B/min 14:51:37 Vitals capture stopped. 14:52:29 Patient moved to bed 14:52:40 Clinical correlaton risk stratification. 14:52:57 Patient transported to [facility] End Study - Contrast Media Used In Study Contrast Total Opened (mL) Total Used (mL) Total Wasted (mL) Omnipaque 30 30 0 End Study - Maximum Contrast Load Max Contrast Load (mL) 291.3 End Study - Radiation Exposure Fluoro Time (minutes) 2.7 End Study - Sheaths Sheaths Pulled By Sheath Hold Time (min) Minor, Dion End Study - Patient Disposition Complications Transferred To Telemetry Bed
[2016-09-25] MEDS ORDERED: IOHEXOL 350 MG/ML 50 ML BTL (for Cath Lab) OTHER ONE (15:58)
[2016-09-25] MEDS: ISOSORBIDE MONONITRATE 60 MG TAB PO SCH (17:16)
[2016-09-25] MEDS ORDERED: GABAPENTIN 300 MG CAP PO PRN (21:00)
--- NOTE | 2016-09-25 21:42 | MA ---
cc: KELLY ROMEO MD DATE 09/25/2016 PROCEDURE PERFORMED 1. Fluoroscopy with interpretation. 2. Coronary angiography. 3. Left heart catheterization. METHOD Risks, benefits and alternatives were discussed with the patient. The patient understood and consented to the procedure. DETAILS Initial attempts to get in the right radial were unsuccessful. We then anesthetized the right groin with 2% lidocaine. Right common femoral was cannulated and a 6-Mauritian 11 cm sheath was placed out difficulty. LEFT HEART CATHETERIZATION A 6-Mauritian JR-5 catheter was advanced across the aortic valve without difficulty. Intraventricular hemodynamics measured 115/3 mmHg. Left end-diastolic pressure 12 mmHg. No significant aortic stenosis by transaortic valvular pullback gradient. CORONARY ANGIOGRAPHY Left coronary circulation was selectively engaged with a 6-Mauritian JL-3.5 catheter. Right coronary circulation was selectively engaged with a 6-Mauritian JR-5 catheter. CORONARY ANATOMY 1. Left main coronary is small, has minor luminal irregularities. 2. Left anterior descending coronary is diffusely diseased throughout its entire proximal mid course. It is also a very small caliber size. The proximal segment has heavy calcium with 30% stenosis. Two diagonal branches are small caliber size with minor irregularities. The mid segment has an 95% stenosis but it is also angulated and small. The remainder of the vessel has moderate diffuse disease, again very small caliber size vessel. 3. Left circumflex gives rise to a small first obtuse marginal branch. There is a stent present in the obtuse marginal branch which is widely patent. The proximal circumflex has 99% stenosis present. 4. The right coronary is a dominant vessel but of smaller caliber size. It does give rise to a small posterior descending branch. The mid-right coronary has 95% stenosis. Proximal and mid segment have 95% stenosis. CONCLUSION 1. Severe multivessel coronary artery disease with small coronary vessels. 2. Patent left circumflex coronary stent. 3. Normal left-sided filling pressures. PLAN The patient's vessels are very small in caliber size and diffusely diseased. Any percutaneous intervention would run high risk. There are no good surgical targets due to the small caliber size. I would recommend continued aggressive medical therapy. MD CARLOS Silva/SYD /3:00 PM /9:27 PM
[2016-09-26] VITALS (13 sets, daily range): BP systolic 118–122; BP diastolic 52–59; PULSE 58–76; RESP 16–20; TEMP 97.8–98; O2SAT 96–98
[2016-09-26] MEDS: MEDIUM DOSE INSULIN NOVOLOG SUPPLEMENTAL SCALE SQ SCH (03:19)
[2016-09-26 05:28] LABS: AUTOMATED NEUTROPHIL # 4.2 TH/MM3 (1.8-7.7); BASOPHIL % 0.4 % (0.0-2.0); EOSINOPHIL # 0.1 TH/MM3 (0-0.4); EOSINOPHIL % 1.5 % (0.0-4.0); HEMATOCRIT 38.2 % (35.0-46.0); HEMO FLAGS DIFF FINAL; LYMPH % 25.3 % (9.0-44.0); LYMPHOCYTE # 1.7 TH/MM3 (1.0-4.8); MEAN CELL VOLUME 88.3 FL (80.0-100.0); MEAN CORPUSCULAR HEMOGLOBIN 29.5 PG (27.0-34.0); MEAN CORPUSCULAR HGB CONC 33.4 % (32.0-36.0); MONO % 9.6 % (0.0-8.0); NEUT % 63.2 % (16.0-70.0); PLATELET COUNT 151 TH/MM3 (150-450); RED BLOOD COUNT 4.33 MIL/MM3 (4.00-5.30); WHITE BLOOD COUNT 6.6 TH/MM3 (4.0-11.0)
[2016-09-26 05:52] LABS: BICARBONATE 23.7 MEQ/L (21.0-32.0); MAGNESIUM 1.9 MG/DL (1.5-2.5); POTASSIUM 3.8 MEQ/L (3.5-5.1)
[2016-09-26] MEDS: ISOSORBIDE MONONITRATE 60 MG TAB PO SCH (05:56)
[2016-09-26] MEDS: SIMETHICONE 125 MG CHEWABLE TAB PO SCH (05:56)
[2016-09-26] MEDS: SODIUM CHLOR 0.9% 1000 ML INJ 1,000 ML IV SCH (05:58)
[2016-09-26] MEDS ORDERED: LEVOTHYROXINE SODIUM 112 MCG TAB PO SCH (06:00)
[2016-09-26] MEDS ORDERED: MEDIUM DOSE INSULIN NOVOLOG SUPPLEMENTAL SCALE SQ SCH (06:20)
[2016-09-26] MEDS ORDERED: GLUCAGON 1 MG/ML VIAL OTHER PRN (06:30)
[2016-09-26] MEDS ORDERED: DEXTROSE 50% IN WATER 50 ML VIAL(D50) IV PUSH PRN (06:30)
--- NOTE | 2016-09-26 07:42 | EKG ---
Date Performed: 09/25/2016 Time Performed: 11:01:14 PTAGE: 61 years EKG: Sinus rhythm Inferior/lateral ST-T changes are nonspecific Borderline ECG NO PREVIOUS TRACING DOCTOR: Nacho Melendez Interpretating Date/Time 09/26/2016 07:41:32
--- NOTE | 2016-09-26 08:24 | PD.CARD.PN ---
Subjective Subjective Remarks no chest pain Objective Medications Active Medications Atorvastatin Calcium 80 mg 80 mg DAILY PO Last administered on 09/25/16 09:15; Admin Dose 80 MG; Start 09/25/16 at 09:00 Atropine Sulfate 0.5 mg 0.5 mg UNSCH PRN IV; Start 09/25/16 at 15:00 Bacitracin (Bacitracin Oint Packet) 0.9 gm ONCE ONCE TOP; Start 09/25/16 at 15: 00; Stop 09/25/16 at 15:01; Status DC Clopidogrel Bisulfate (Plavix) 75 mg DAILY PO Last administered on 09/25/16 11: 30; Admin Dose 75 MG; Start 09/25/16 at 10:45 Dextrose (D50w (Vial) Inj) 25 ml UNSCH PRN IV PUSH; Start 09/26/16 at 06:30 Fentanyl Citrate (fentaNYL INJ) 100 mcg STK-MED ONCE .ROUTE Last administered on 09/25/16 14:01; Admin Dose 100 MCG; Start 09/25/16 at 14:01; Stop 09/25/16 at 14:02; Status DC Gabapentin (Neurontin) 600 mg HS PRN PO; Start 09/25/16 at 21:00 Glucagon (Glucagon Inj) 1 mg UNSCH PRN OTHER; Start 09/26/16 at 06:30 Heparin Sodium/ Sodium Chloride (Heparin-NS/Pf Inj) 500 ml @ As Directed STK- MED ONCE .ROUTE Last administered on 09/25/16 13:53; Admin Dose 0 MLS/HR; Start 09/25/16 at 13:53; Stop 09/25/16 at 13:54; Status DC Insulin Aspart (NovoLOG SUPPLEMENTAL SCALE) 1 Q6HR SQ Last administered on 06:20; Admin Dose 1; Start 09/26/16 at 06:20 Iohexol (OMNIPAQUE 350 INJ (Pyrotechnician)) 50 ml STK-MED ONCE OTHER; Start 09/25/16 at 15:58; Stop 09/25/16 at 15:59; Status DC Isosorbide Mononitrate (Imdur) 60 mg BID@0700,1600 PO Last administered on 05:56; Admin Dose 60 MG; Start 09/25/16 at 16:00 Levothyroxine Sodium (Synthroid) 112 mcg DAILY@06 PO Last administered on 05:56; Admin Dose 112 MCG; Start 09/26/16 at 06:00 Lidocaine HCl (Xylocaine 1% Inj (50 ml)) 10 ml UNSCH PRN INFIL; Start 09/25/16 at 15:00; Stop 09/26/16 at 14:59 Lorazepam (Ativan Inj) 0.5 mg UNSCH PRN IV; Start 09/25/16 at 15:00; Stop at 14:59 Metoprolol Tartrate (Lopressor) 12.5 mg Q12HR PO Last administered on 09/25/16 21:29; Admin Dose 12.5 MG; Start 09/25/16 at 09:00 Midazolam HCl (Versed Inj) 2 mg STK-MED ONCE .ROUTE Last administered on 14:01; Admin Dose 2 MG; Start 09/25/16 at 14:01; Stop 09/25/16 at 14:02; Status DC Miscellaneous Information 1 ONCE ONCE XX; Start 09/25/16 at 15:00; Stop 09/25/16 at 15:01; Status DC Pantoprazole Sodium (Protonix Inj) 40 mg Q24H IV PUSH Last administered on 11:31; Admin Dose 40 MG; Start 09/25/16 at 10:00 Ranolazine (Ranexa) 500 mg Q12HR PO Last administered on 09/25/16 21:28; Admin Dose 500 MG; Start 09/25/16 at 10:45; Stop 09/26/16 at 08:18; Status DC Ranolazine (Ranexa) 1,000 mg Q12HR PO; Start 09/26/16 at 09:00; Status UNV Simethicone (Phazyme Chew) 125 mg ONCE ONCE PO Last administered on 09/25/16 11 :30; Admin Dose 125 MG; Start 09/25/16 at 11:15; Stop 09/25/16 at 11:16; Status DC Simethicone 125 mg 125 mg Q8HR PO Last administered on 09/26/16 05:56; Admin Dose 125 MG; Start 09/25/16 at 14:00 Sodium Chloride (NS 1000 ml Inj) 1,000 ml @ 100 mls/hr Q10H IV Last administered on 09/26/16t 05:58; Admin Dose 100 MLS/HR; Start 09/25/16 at 09:00; Stop 09/30/16 at 08:59 Sodium Chloride (NS 250 ml Inj) 250 ml @ 500 mls/hr ONCE PRN IV; Start at 15:00; Stop 09/26/16 at 14:59 Vital Signs / I&O Vital Signs Date Time Temp Pulse Resp B/P Pulse Ox O2 Delivery O2 Flow Rate FiO2 09/26/16 06:00 62 09/26/16 05:04 61 09/26/16 04:00 67 09/26/16 03:00 97.8 63 16 120/58 96 09/26/16 03:00 63 09/26/16 02:00 61 09/26/16 01:04 62 09/26/16 00:00 58 09/25/16 23:30 98.7 61 16 130/58 96 09/25/16 23:00 57 09/25/16 22:00 64 09/25/16 21:00 68 09/25/16 20:00 64 09/25/16 19:30 97.6 70 18 140/72 98 09/25/16 19:00 73 09/25/16 18:00 68 09/25/16 17:00 68 09/25/16 16:00 62 09/25/16 15:00 62 09/25/16 15:00 97.7 65 17 127/69 97 09/25/16 13:00 62 09/25/16 12:00 68 09/25/16 11:00 66 09/25/16 11:00 98.1 62 16 126/64 96 09/25/16 10:00 68 09/25/16 09:00 70 I/O 09/25/16 09/25/16 09/25/16 09/26/16 09/26/16 09/26/16 07:00 15:00 23:00 07:00 15:00 23:00 Intake Total 410 ml 1180 ml Output Total 550 ml Balance 410 ml 630 ml Intake Oral 410 ml 480 ml IV Total 700 ml Output Urine Total 550 ml # Voids 1 3 8 1 # Bowel Movements 0 Physical Exam GENERAL: SKIN: Warm and dry. HEAD: Normocephalic. EYES: No scleral icterus. No injection or drainage. NECK: Supple, trachea midline. No JVD or lymphadenopathy. CARDIOVASCULAR: Regular rate and rhythm without murmurs, gallops, or rubs. RESPIRATORY: Breath sounds equal bilaterally. No accessory muscle use. GASTROINTESTINAL: Abdomen soft, non-tender, nondistended. MUSCULOSKELETAL: No cyanosis, or edema. BACK: Nontender without obvious deformity. No CVA tenderness. Laboratory Laboratory Tests Test 09/25/16 09/25/16 09/25/16 09/26/16 09:50 10:47 12:40 04:11 Nasal Screen MRSA (PCR) MRSA NOT DETECTED Total Creatine Kinase 272 U/L Creatine Kinase MB 19.2 NG/ML Creatine Kinase MB % 7.1 % Troponin I 7.75 NG/ML Activated Partial 100.4 SEC Thromboplast Time White Blood Count 6.6 TH/MM3 Red Blood Count 4.33 MIL/MM3 Hemoglobin 12.8 GM/DL Hematocrit 38.2 % Mean Corpuscular Volume 88.3 FL Mean Corpuscular Hemoglobin 29.5 PG Mean Corpuscular Hemoglobin 33.4 % Concent Red Cell Distribution Width 14.0 % Platelet Count 151 TH/MM3 Mean Platelet Volume 10.4 FL Neutrophils (%) (Auto) 63.2 % Lymphocytes (%) (Auto) 25.3 % Monocytes (%) (Auto) 9.6 % Eosinophils (%) (Auto) 1.5 % Basophils (%) (Auto) 0.4 % Neutrophils # (Auto) 4.2 TH/MM3 Lymphocytes # (Auto) 1.7 TH/MM3 Monocytes # (Auto) 0.6 TH/MM3 Eosinophils # (Auto) 0.1 TH/MM3 Basophils # (Auto) 0.0 TH/MM3 CBC Comment DIFF FINAL Differential Comment Sodium Level 139 MEQ/L Potassium Level 3.8 MEQ/L Chloride Level 107 MEQ/L Carbon Dioxide Level 23.7 MEQ/L Anion Gap 8 MEQ/L Blood Urea Nitrogen 12 MG/DL Creatinine 0.89 MG/DL Estimat Glomerular Filtration 64 ML/MIN Rate Random Glucose 174 MG/DL Calcium Level 8.3 MG/DL Magnesium Level 1.9 MG/DL Imaging Last Impressions Chest X-Ray 09/24/16 9303 Signed Impressions: Service Date/Time: Saturday, September 24, 2016 21:39 - CONCLUSION: No acute disease. Nathen E. Aguilar, MD Assessment and Plan Assessment and Plan NSTEMI - s/p [facility]. multivessel disease. small coronary arteries. Not amendable to PCI. No good surgical targets. plan for medical therapy. titrate ranexa to 1000 mg BID DC planning for today FU in OPD Dion Laws MD September 26, 2016 08:24
[2016-09-26] MEDS ORDERED: RANOLAZINE 500 MG EXTENDED RELEASE TAB PO SCH (09:00)
[2016-09-26] MEDS: CLOPIDOGREL 75 MG TAB PO SCH (09:28)
[2016-09-26] MEDS: METOPROLOL TARTRATE 25 MG TAB PO SCH (09:29)
[2016-09-26] MEDS: ATORVASTATIN 80 MG TAB PO SCH (09:29)
[2016-09-26] MEDS: PANTOPRAZOLE SODIUM 40 MG VIAL IV PUSH SCH (09:30)
--- NOTE | 2016-09-26 11:57 | HHI.PR ---
Subjective Remarks No new complaints. Denies any chest pain Pt is anxious for discharge today Objective Vitals Vital Signs Date Time Temp Pulse Resp B/P Pulse Ox O2 Delivery O2 Flow Rate FiO2 09/26/16 06:00 62 09/26/16 05:04 61 09/26/16 04:00 67 09/26/16 03:00 97.8 63 16 120/58 96 09/26/16 03:00 63 09/26/16 02:00 61 09/26/16 01:04 62 09/26/16 00:00 58 09/25/16 23:30 98.7 61 16 130/58 96 09/25/16 23:00 57 09/25/16 22:00 64 09/25/16 21:00 68 09/25/16 20:00 64 09/25/16 19:30 97.6 70 18 140/72 98 09/25/16 19:00 73 09/25/16 18:00 68 09/25/16 17:00 68 09/25/16 16:00 62 09/25/16 15:00 62 09/25/16 15:00 97.7 65 17 127/69 97 09/25/16 13:00 62 09/25/16 12:00 68 09/25/16 09/25/16 09/26/16 15:00 23:00 07:00 Intake Total 410 ml 1180 ml Output Total 550 ml Balance 410 ml 630 ml Intake Oral 410 ml 480 ml IV Total 700 ml Output Urine Total 550 ml # Voids 3 8 1 # Bowel Movements 0 Result Diagram: 09/26/16 0411 09/26/16 0411 Other Results Laboratory Tests Test 09/24/16 09/24/16 09/25/16 09/25/16 21:46 23:00 00:05 04:11 White Blood Count 7.9 TH/MM3 6.5 TH/MM3 Red Blood Count 4.67 MIL/MM3 3.79 MIL/MM3 Hemoglobin 13.7 GM/DL 12.1 GM/DL Hematocrit 41.5 % 36.7 % Mean Corpuscular Volume 88.8 FL 96.9 FL Mean Corpuscular Hemoglobin 29.4 PG 32.0 PG Mean Corpuscular Hemoglobin 33.1 % 33.0 % Concent Red Cell Distribution Width 14.0 % 12.6 % Platelet Count 190 TH/MM3 206 TH/MM3 Mean Platelet Volume 10.0 FL 9.3 FL Neutrophils (%) (Auto) 67.9 % Lymphocytes (%) (Auto) 22.9 % Monocytes (%) (Auto) 7.6 % Eosinophils (%) (Auto) 1.0 % Basophils (%) (Auto) 0.6 % Neutrophils # (Auto) 5.4 TH/MM3 Lymphocytes # (Auto) 1.8 TH/MM3 Monocytes # (Auto) 0.6 TH/MM3 Eosinophils # (Auto) 0.1 TH/MM3 Basophils # (Auto) 0.0 TH/MM3 CBC Comment DIFF FINAL Differential Comment Prothrombin Time 10.8 SEC 11.2 SEC Prothromb Time International 1.0 RATIO 1.0 RATIO Ratio Activated Partial 23.9 SEC 29.7 SEC 51.5 SEC Thromboplast Time Sodium Level 138 MEQ/L Potassium Level 3.8 MEQ/L Chloride Level 103 MEQ/L Carbon Dioxide Level 24.6 MEQ/L Anion Gap 10 MEQ/L Blood Urea Nitrogen 17 MG/DL Creatinine 1.24 MG/DL Estimat Glomerular Filtration 44 ML/MIN Rate Random Glucose 368 MG/DL Calcium Level 8.2 MG/DL Magnesium Level 2.0 MG/DL Total Bilirubin 0.5 MG/DL Aspartate Amino Transf 24 U/L (AST/SGOT) Alanine Aminotransferase 29 U/L (ALT/SGPT) Alkaline Phosphatase 114 U/L Total Creatine Kinase 118 U/L 153 U/L 256 U/L Creatine Kinase MB 3.2 NG/ML 18.1 NG/ML Troponin I 0.10 NG/ML 1.15 NG/ML 5.36 NG/ML B-Type Natriuretic Peptide 217 PG/ML Total Protein 6.6 GM/DL Albumin 3.4 GM/DL Lipase 382 U/L Creatine Kinase MB % 7.1 % Test 09/25/16 09/25/16 09/25/16 09/26/16 09:50 10:47 12:40 04:11 Nasal Screen MRSA (PCR) MRSA NOT DETECTED Total Creatine Kinase 272 U/L Creatine Kinase MB 19.2 NG/ML Creatine Kinase MB % 7.1 % Troponin I 7.75 NG/ML Activated Partial 100.4 SEC Thromboplast Time White Blood Count 6.6 TH/MM3 Red Blood Count 4.33 MIL/MM3 Hemoglobin 12.8 GM/DL Hematocrit 38.2 % Mean Corpuscular Volume 88.3 FL Mean Corpuscular Hemoglobin 29.5 PG Mean Corpuscular Hemoglobin 33.4 % Concent Red Cell Distribution Width 14.0 % Platelet Count 151 TH/MM3 Mean Platelet Volume 10.4 FL Neutrophils (%) (Auto) 63.2 % Lymphocytes (%) (Auto) 25.3 % Monocytes (%) (Auto) 9.6 % Eosinophils (%) (Auto) 1.5 % Basophils (%) (Auto) 0.4 % Neutrophils # (Auto) 4.2 TH/MM3 Lymphocytes # (Auto) 1.7 TH/MM3 Monocytes # (Auto) 0.6 TH/MM3 Eosinophils # (Auto) 0.1 TH/MM3 Basophils # (Auto) 0.0 TH/MM3 CBC Comment DIFF FINAL Differential Comment Sodium Level 139 MEQ/L Potassium Level 3.8 MEQ/L Chloride Level 107 MEQ/L Carbon Dioxide Level 23.7 MEQ/L Anion Gap 8 MEQ/L Blood Urea Nitrogen 12 MG/DL Creatinine 0.89 MG/DL Estimat Glomerular Filtration 64 ML/MIN Rate Random Glucose 174 MG/DL Calcium Level 8.3 MG/DL Magnesium Level 1.9 MG/DL Imaging Last Impressions Chest X-Ray 09/24/162128 Signed Impressions: Service Date/Time: Saturday, September 24, 2016 21:39 - CONCLUSION: No acute disease. Nathen Aguilar MD Objective Remarks General: NAD, AAOx3 Chest: CTA Cardiac: Regular Abd: +BS, soft ND/NT Ext: No edema A/P Problem List: (1) Non-STEMI (non-ST elevated myocardial infarction) Status: Acute Plan: - Pt admitted with chest pain and found to have elevated CE/NSTEMI - Pt has a hx of CAD and previous LHC 02/2016 --> severe multivessel CAD, successful PCI with RIYA x 2 to the left circumflex. - BB/Statin - Cardiology is following - Pt underwent LHC (09/25/16) --> Severe multivessel coronary artery disease with small coronary vessels, parent left circumflex coronary stent and normal left-sided filling pressures. - Recommended continued aggressive medical therapy. - 2D echo (09/25) --> Estimated EF 50-55%, mild hypokinesis of the inferior myocardium, mild aortic stenosis, mild mitral regurgitation, mild tricuspid regurgitation. - Cont. Plavix and Imdur - Ranexa being titrated up to 1000mg BID - pt will need to followup with Dr. Laws in 2 weeks - Pt will need to followup with her PCP, Dr. Messer, in 2 weeks. (2) CAD (coronary artery disease) Status: Chronic Plan: - Pt with hx of CAD and unstable angina. - Pt had recently been started on Ranexa 500mg po BID and also takes Imdur 60mg po BID - Ranexa is being titrated up to 1000mg po BID - See above. (3) Diabetes Status: Chronic Plan: - NovoLog SSI - Levemir - Accu checks - Gabapentin 600mg po HS PRN for neuropathic pain resumed from home meds (4) Hypertension Status: Chronic Plan: - Pt has been started on Metoprolol 12.5mg po BID - Monitor (5) Hypothyroid Status: Chronic Plan: - Resume home meds Assessment and Plan Patient examined. Assessment and plan formulated with Cintia PAGAN-C. I agree with the above. - Case d/w Cardiology, Dr. Laws, 09/26/16 - [facility] showed small vessel disease NOT amenable to repain - Pt's renexa was increased - Pt pain free on day of discharge - f/u with Cardiology in 2 weeks outpt. Problem Qualifiers (1) Diabetes: Qualified Code: E11.8 - Type 2 diabetes mellitus with complication, with long- term current use of insulin Cintia Bella September 26, 2016 11:57 Prosper Shaw DO September 27, 2016 00:09
--- NOTE | 2016-09-26 12:23 | HHI.DCPOC ---
Discharge Care Plan Diagnosis: (1) Non-STEMI (non-ST elevated myocardial infarction) (2) CAD (coronary artery disease) (3) Hypertension (4) Hypothyroid (5) Diabetes (6) Neuropathy Goals to Promote Your Health * To prevent worsening of your condition and complications * To maintain your health at the optimal level Directions to Meet Your Goals Take your medications as prescribed Follow your dietary instruction Follow activity as directed Keep your appointments as scheduled Take your immunizations and boosters as scheduled If your symptoms worsen call your PCP, if no PCP go to Urgent Care Center or Emergency Room Smoking is Dangerous to Your Health. Avoid second hand smoke Call the 24-hour hour crisis hotline for domestic abuse at Cintia Bella September 26, 2016 12:23 Prosper Shaw DO September 27, 2016 00:09
[2016-09-26] MEDS ORDERED: GABA600T PO (12:24)
[2016-09-26] MEDS ORDERED: ATOR1TAB18 PO (12:24)
[2016-09-26] MEDS ORDERED: ASPI81CH37 CHEW (12:24)
[2016-09-26] MEDS ORDERED: LEVO-168 PO (12:24)
[2016-09-26] MEDS ORDERED: ISOS60TA PO (12:24)
[2016-09-26] MEDS ORDERED: EMPA1TAB15 PO (12:24)
[2016-09-26] MEDS ORDERED: RANO500 PO ×2 (12:24→12:32)
[2016-09-26] MEDS ORDERED: LEVEMIR SQ (12:24)
[2016-09-26] MEDS ORDERED: NOVOINJ SQ (12:24)
--- NOTE | 2016-09-26 15:53 | EKG ---
Date Performed: 09/26/2016 Time Performed: 05:39:18 PTAGE: 61 years EKG: Sinus rhythm Inferior/lateral T wave changes are nonspecific Compared to prior tracing no significant change [facility] ECG PREVIOUS TRACING : 09/25/2016 11.01 DOCTOR: Gilmar Ulloa Interpretating Date/Time 09/26/2016 15:49:20
[2016-09-27] MEDS ORDERED: PANTOPRAZOLE SOD 40 MG DELAYED RELEASE TAB PO SCH (09:00)
== END 2016-09-26 14:58 | disposition home or self-care (01) | DRG 282 ==
LOC: NEPE 21:26 → NEDA 22:56 → HCIS 09-25 04:36
PROVIDERS: ADMIT Hospitalist; ATTEND Hospitalist
PROC: B2111ZZ Fluoroscopy of Multiple Coronary Arteries using Low Osmolar Contrast (ICD-10-PCS; 2016-09-25)
PROC: 4A023N7 Measurement of Cardiac Sampling and Pressure, Left Heart, Percutaneous Approach (ICD-10-PCS; principal; 2016-09-25 13:30)
DX: I21.4 Non-ST elevation (NSTEMI) myocardial infarction (principal); I11.0 Hypertensive heart disease with heart failure; I50.9 Heart failure, unspecified; E11.21 Type 2 diabetes mellitus with diabetic nephropathy; E11.40 Type 2 diabetes mellitus with diabetic neuropathy, unspecified; E03.9 Hypothyroidism, unspecified; E78.5 Hyperlipidemia, unspecified; I25.10 Atherosclerotic heart disease of native coronary artery without angina pectoris; E11.319 Type 2 diabetes mellitus with unspecified diabetic retinopathy without macular edema; G47.33 Obstructive sleep apnea (adult) (pediatric); I08.3 Combined rheumatic disorders of mitral, aortic and tricuspid valves; J44.9 Chronic obstructive pulmonary disease, unspecified; K21.9 Gastro-esophageal reflux disease without esophagitis; F41.8 Other specified anxiety disorders; H35.30 Unspecified macular degeneration; Z79.4 Long term (current) use of insulin; Z85.828 Personal history of other malignant neoplasm of skin; Z89.429 Acquired absence of other toe(s), unspecified side; Z90.710 Acquired absence of both cervix and uterus
CPT/HCPCS: 71010; 80048; 80053; 82550; 82552; 82948; 83690; 83735; 83880; 84484; 85025; 85027; 85610; 85730; 87641; 93005; 93306; 93454; 96374; 96375; C1760; C1769; C1893; C9113; G0269; J1644; J1815; J2250; J3010; J7030; J7040; Q9967

== ENCOUNTER 2018-03-20 05:14 | Inpatient (IN) ==
[~2018-03-20 05:14] MED LIST changes: -ASPI81TA82 PO; -ATOR80TA PO; -EMPA1TAB15 PO; -GABA600T PO; -IMDU60TA PO; -LEVEMIR SQ; -LEVO50TA4 PO; -METO25TA3 PO; +Metoprolol Tartrate 25 MG Tablet PO SCH; -NOVOINJ SQ; -PLAV75TA29 PO
[2018-03-20] MEDS ORDERED: Dextrose 50% in Water 50 ML Vial IV.PUSH PRN ×2 (05:48→11:30)
[2018-03-20] MEDS ORDERED: Metoprolol Tartrate 25 MG Tablet PO ONE (05:55)
[2018-03-20] MEDS ORDERED: Chlorhexidine Gluconate 2% 1 Pack (2 Cloths) TOPICAL ONE (05:55)
[2018-03-20] MEDS ORDERED: Sodium Chlor 0.9% Inj 500 ML IV.SIG SCH (06:00)
[2018-03-20] MEDS ORDERED: ceFAZolin Inj 2,000 MG in Sodium Chlor 0.9% Inj 80 ML IV.SIG SCH (06:00)
[2018-03-20] MEDS ORDERED: Chlorhexidine 4% Topical 120 APPLIC/120 ML Bottle TOPICAL SCH (06:00)
[2018-03-20] MEDS ORDERED: ceFAZolin 2 GM Premix Inj 2 GM/50 ML PIGGYBACK IV.SIG ONE ×2 (06:21→06:31)
[2018-03-20] MEDS ORDERED: Famotidine PF Inj 20 MG/2 ML Vial ONE (06:28)
[2018-03-20] MEDS ORDERED: MethylPREDNISolone Sod Succinate Inj 125 MG/2 ML Vial ONE (06:30)
[2018-03-20] MEDS ORDERED: Heparin - SQ 10,000 UNITS/ML Vial ONE ×2 (06:31→06:32)
[2018-03-20] MEDS ORDERED: Famotidine PF Inj 20 MG/2 ML Vial IV.PUSH ONE (06:45)
[2018-03-20] MEDS ORDERED: Insulin Regular (For Infusion) 100 UNIT in Sodium Chlor 0.9% Inj 99 ML IV.CONT PRN ×2 (07:30→11:30)
[2018-03-20] MEDS ORDERED: Cardioplegic Irr Soln 2,000 ML IRRIGATION ONE (08:32)
[2018-03-20] MEDS ORDERED: Potassium Chloride Inj 40 MEQ/20 ML Vial ONE (08:32)
[2018-03-20] MEDS ORDERED: Heparin 10,000 UNITS/10 ML Vial (for IV use) ONE (08:33)
[2018-03-20] MEDS ORDERED: Albumin Human 25% Inj 50 ML IV.SIG ONE (08:33)
[2018-03-20] MEDS ORDERED: Sodium Bicarbonate 8.4% Inj 50 MEQ/50 ML Syringe ONE (08:34)
[2018-03-20] MEDS: Sodium Chlor 0.9% Inj 77.5 ML, Papaverine Inj 60 MG, Nitroglycerin Inj 100 MCG, dilTIAZ... IRRIGATION SCH ×6 (09:07→09:18)
[2018-03-20] MEDS: Sodium Chloride 0.9% Irr Bot 500 ML, ceFAZolin Inj 500 MG IRRIGATION SCH ×4 (09:11→09:20)
[2018-03-20] MEDS ORDERED: Metoprolol Inj 5 MG/5 ML Vial IV.PUSH PRN (11:30)
[2018-03-20] MEDS ORDERED: Dexmedetomidine Inj 200 MCG in Sodium Chlor 0.9% Inj 48 ML IV.CONT PRN (11:30)
[2018-03-20] MEDS ORDERED: Clevidipine Inj 25 MG/50 ML VIAL IV.CONT PRN (11:30)
[2018-03-20] MEDS ORDERED: Post-op Orders (for Pharmacy) OTHER STA (11:30)
[2018-03-20] MEDS ORDERED: hydrALAZINE HCl Inj 20 MG/ML Vial IV.PUSH PRN (11:30)
[2018-03-20] MEDS ORDERED: Potassium Chlor 20 mEq Premix 20 MEQ/100 ML PIGGYBACK IV.SIG PRN ×3 (11:30)
[2018-03-20] MEDS ORDERED: Insulin NovoLOG Aspart Correctional Sugar Inj SQ SCH (11:30)
[2018-03-20] MEDS ORDERED: RESP: Racemic Epinephrine 2.25% 0.5 ML Neb NEB PRN (11:30)
[2018-03-20] MEDS ORDERED: Calcium Chloride Inj 1 GM/10 ML Syringe IV.PUSH PRN (11:30)
[2018-03-20] MEDS ORDERED: Calcium Chloride Inj 1 GM in Sodium Chlor 0.9% Inj 100 ML IV.SIG PRN (11:30)
[2018-03-20] MEDS ORDERED: Magnesium Sulfate Inj 2 GM in Sodium Chlor 0.9% Inj 96 ML IV.SIG PRN ×4 (11:30)
--- NOTE | 2018-03-20 11:42 | P.OP ---
- Preoperative Diagnosis (1) CAD (coronary artery disease) (2) Ischemic cardiomyopathy (3) Systolic heart failure Postoperative Diagnosis: same Date of procedure: 03/20/18 Procedure: CABG x 3 WHARTON to LAD - fair SVG to OM! - poor SVG to RCA - good EVH Anesthesia: JONATHAN Surgeon: Alivia Hess MD Mission Assessment Specialist: Rita Tamez Pathology: none sent Operation and Findings: The risks, benefits, complications, treatment options, and expected outcomes were discussed with the patient. The possibilities of reaction to medication, pulmonary aspiration, perforation of viscus, bleeding, recurrent infection, the need for additional procedures, failure to diagnose a condition, and creating a complication requiring transfusion or operation were discussed with the patient. The patient concurred with the proposed plan, giving informed consent. The site of surgery properly noted/marked. The patient was taken to Operating Room, identified as Daily Cabrera, and the procedure verified as CABG, EVH, DELANO. A Time Out was held and the above information confirmed. Standard monitoring lines and Sun catheter were placed. General anesthesia was induced. The patient was prepped and draped in a sterile fashion. A median sternotomy was performed and electrocautery was used to obtain hemostasis. The left internal mammary artery was procured as a pedicle from the 7th rib to the 1st rib in the usual manner. Simultaneously left greater saphenous vein was procured from the left leg using a minimally invasive endoscopic technique. The vein was prepared for anastomosis and the leg wound was irrigated and closed in 2 layers. The pericardium was opened and a pericardial sling was created using interrupted 0 silk sutures. The patient was heparinized for cardiopulmonary bypass and the distal mammary pedicle was instrumented for anastomosis. The heart was instrumented for cardiopulmonary bypass in the usual manner. Antegrade blood cardioplegia was employed. The patient was placed on cardiopulmonary bypass. An aortic cross-clamp was applied and the heart was arrested using cold blood cardioplegia. Antegrade cardioplegia was administered after he each anastomosis. After adequate arrest, the distal right coronary circulation was investigated and the distal RCA was opened with a [place] blade and found to be a 1 millimeter good target. Saphenous vein was approximated to the RCA artery using a running 7 0 Prolene suture. The graft was measured for length and orientation and the proximal anastomosis was constructed to the ascending aorta using a running 5 0 Prolene suture after creating an aortotomy with a 5 millimeter punch. The 1st circumflex marginal artery was then opened with a [place] blade and found to be a 1 millimeter poor target. The OM1 artery was intramyocardial. Saphenous vein was approximated to the OM1 artery using a running 7 0 Prolene suture. The graft was measured for length and orientation and was suspended from the pericardium. The distal LAD was opened with a [place] blade and found to be a 1 millimeter fair target. The left internal mammary artery was approximated to the LAD using a running 7 0 Prolene suture. The pedicle was attached to the epicardium using interrupted 5 0 silk suture. The patient was systemically rewarmed and received a hotshot dose of warm blood cardioplegia. The aorta was vented and the proximal anastomosis to the OM1 graft was accomplished using a running 5 0 Prolene suture after creating an aortotomy was a 5 millimeter punch. The cross-clamp was removed and all proximal and distal anastomoses were examined for hemostasis. Temporary atrial pacing on wires were positioned and brought out through the skin in the usual manner. The patient was paced at 80 beats per minute and weaned from cardiopulmonary bypass. Protamine was given. There was no adverse reaction. Decannulation was carried out without incident. Wound was checked for hemostasis which was obtained using electrocautery. A 36 Portuguese mediastinal and 32 Portuguese left pleural chest tubes were placed and secured to the skin with 0 silk suture. The sternum was closed with stainless steel wire. The fascia was closed with 1. PDS. The subcutaneous tissue was closed using a running 2-0 Vicryl suture. The skin was closed with 4-0 Monocryl. Sterile dressings were placed. At the end of the operation, all sponge, instruments, and needle counts were correct. The patient was transferred to the CVICU in stable condition. Findings: LV function improved to EF ~35% XC: 67 min CPB: 80 min Drains: mediastinal x 1 pleural x 1 Complications: none Disposition: to CVIICU in stable condition Pacing Wires: 2 atrial
[2018-03-20] MEDS ORDERED: Potassium Chlor 40 mEq Premix 40 MEQ/100 ML PIGGYBACK ONE (12:22)
[2018-03-20] MEDS ORDERED: fentaNYL Citrate Inj 250 MCG/5 ML Ampul ONE (12:49)
--- NOTE | 2018-03-20 12:49 | XR ---
EXAM DATE: 03/20/2018 12:46 PM EDT AGE/SEX: 63 years / Female INDICATIONS: Cardiac disease. Post-op coronary artery bypass graft surgery. CLINICAL DATA: This is the patient's subsequent encounter. Patient reports that signs and symptoms h ave been present for 1 day and indicates a pain score of Nonresponsive. MEDICAL/SURGICAL HISTORY: Non-responsive. Non-responsive. COMPARISON: [facility], CHEST 1V SINGLE AP, 03/07/2018. . FINDINGS: ET tube nasogastric tube and central venous catheter in good position. Mediastinal drain and left erika st tube are in good position. There is no pneumothorax Cardiac silhouette appears appropriate. CONCLUSION: Interval bypass, support apparatus in good position. Electronically signed by: Kunal Erickson MD 03/20/2018 12:48 PM EDT
[2018-03-20] MEDS ORDERED: EPINEPHrine PF/SF Inj 1 MG/ML Ampul I-OCULAR ONE (12:50)
[2018-03-20] MEDS ORDERED: RASS Change Order OTHER ONE (13:00)
--- NOTE | 2018-03-20 13:43 | P.PNCV ---
- Note Subjective/Hospital Course: A 63-year-old patient of Dr. Crane, Dr. Nimo Hobson/ initially seen 02/25/18 with history of coronary artery disease that was admitted back in 09/2016 with non-STEMI, who underwent cardiac catheterization at that time by Dr. Laws which showed severe multivessel coronary disease with small coronary vessels. The mid segment had a 95% stenosis, the left circumflex had a 99% stenosis. The right coronary artery had a 95% stenosis. It was suggested that this vessel was very small in caliber size, diffusely diseased, and would be high risk for any PCI. At the time, she also had a 2D echocardiogram that showed ejection fraction at that time at 50%. She presented back to [facility] with chest pain for the past couple of weeks. Also, shortness of breath with minimal exertion. Cardiac risk factors include coronary artery disease, hypertension, diabetes mellitus. She underwent cardiac catheterization today, which showed mid distal LAD 80%, the diagonal 80%, the circumflex 100%, the OM 100%, the RCA 100%. Her echocardiogram from the office showed an ejection fraction of 20-25%. No valvular disease. We were consulted to evaluate for candidacy for coronary artery bypass grafting. PAST MEDICAL HISTORY: Includes coronary artery disease, cardiomyopathy, congestive heart failure, Sutter class III, chronic kidney disease, cystitis, diabetes on insulin, peripheral vascular disease, hypothyroidism, type2 diabetes. 03/20 pt electively admitted for surgery Date of procedure: 03/20/18 Procedure: CABG x 3 WHARTON to LAD - fair SVG to OM! - poor SVG to RCA - good L EVH Objective: Vital Signs - 24 hr 03/20/18 06:25 03/20/18 12:08 03/20/18 12:36 Temperature 97 F L 97.3 F L Pulse Rate 66 80 Respiratory Rate 18 10 L 10 L Blood Pressure 162/74 H Pulse Oximetry 100 99 96 Labs: Laboratory Results - last 12 hr 03/20/18 03/20/18 03/20/18 06:00 06:06 13:09 POC Glucose 235 H 136 H Blood Type B Negative Blood Type Recheck Not needed Antibody Screen Negative MTS Gel Crossmatch See Detail - Plan (3) Diabetes (3) Diabetes Qualifiers: Diabetes mellitus type: type 2
--- NOTE | 2018-03-20 14:56 | P.CONCC ---
History of Present Illness Service: Critical Care Medicine Consult date: 03/20/18 Requesting Physician: Alivia Hess Reason for Consult: perioperative management of hemodynamics Primary Care Provider: Sonya Leonardo MD History of Present Illness: 63yF with h/o ischemic cardiomyopathy, EF documented around 20-25% who presents for 3 vessel CABG. She underwent on-pump CABG x 3 (WHARTON-->LAD, SVG-->OM, SVG--> RCA). She arrives to the CVICU in stable condition, intubated. It was noted that her lateral wall had improved movement post-procedure and her EF improved slightly to ~30%. She did have a lactate of 3.5 intra-operatively which has begun to clear to 2.8 on my evaluation. chest tubes have minimal sanguinous output within the first hour, and uop adequate the first hour post-op. CVP was running 0-2 back in the OR and is now 3. No information is available from the patient while she remains intubated arousing from anesthesia. ROS unobtainable. Review of Systems unobtainable due to endotracheal tube PMFSH - History History Provided By: Patient - Medical History Medical History: Medical History (Last Reviewed 03/20/18 @ 14:49 by Jonnathan Britt MD) CAD (coronary artery disease) CHF (congestive heart failure) CKD (chronic kidney disease), stage III Diabetes HTN (hypertension) Hx MRSA infection Hypothyroid PVD (peripheral vascular disease) SOB (shortness of breath) Skin cancer Tooth infection - Social History I have reviewed the patient's Social History: Yes - Tobacco History Second Hand Smoke Exposure: No Smoking Status: Never smoker - Alcohol History How Often Do You Have a Drink Containing Alcohol: Monthly or less - Substance Use History Substance History: No History of Abuse - Travel History Recent Travel in the [place] Within the Last 8 Weeks: No Recent Travel Out of the Country Within the Last 8 Weeks: No Medications and Allergies Active Medications: Active Medications Albuterol (Duoneb Neb (Prn)) 1 ampul NEB Q2HR NEB PRN PRN Reason: WHEEZING Amiodarone HCl (Cordarone) 200 mg PO Q12HR LONI Aspirin (Aspirin Chew) 81 mg PO DAILY LONI Atorvastatin Calcium (Lipitor) 80 mg PO DAILY LONI Calcium Chloride (Calcium Chloride Inj) 0.5 gm IV.PUSH UNSCH PRN PRN Reason: SEE LABEL COMMENTS Chlorhexidine Gluconate (Hibiclens 4% Topical) 0 applicatio TOPICAL [employer]ACH[employer] [facility] Stop: 03/26/18 05:48 Sodium Chloride 77.5 ml/Papaverine HCl 60 mg/Nitroglycerin 100 mcg/Diltiazem HCl 100 mg 0 ml IRRIGATION [employer] [facility] Stop: 03/26/18 07:29 Last Admin: 03/20/18 09:18 Dose: 100 bag Sodium Chloride 500 ml/ (Cefazolin Sodium 500 mg) 0 ml IRRIGATION [employer] [facility] Stop: 03/26/18 07:29 Last Admin: 03/20/18 09:20 Dose: 500 irrig.soln Dextrose (D50w Vial) 50 ml IV.PUSH UNSCH PRN PRN Reason: PER HYPOGLYCEMIA PROTOCOL Epinephrine (Racepinephrine 2.25% Neb) 0.5 ml NEB DAILY NEB PRN PRN Reason: STRIDOR Fentanyl Citrate (Fentanyl Inj) 25 mcg IV.PUSH Q1H PRN PRN Reason: BREAKTHROUGH PAIN Fluoxetine HCl (Prozac) 20 mg PO DAILY LONI Gabapentin (Neurontin) 600 mg PO DAILY LONI Hydralazine HCl (Apresoline Inj) 10 mg IV.PUSH Q4H PRN PRN Reason: SEE LABEL COMMENTS Cefazolin Sodium 2,000 mg/ (Sodium Chloride) 100 mls @ 200 mls/hr IV.SIG [employer] [facility] Stop: 03/26/18 05:48 Last Infusion: 03/20/18 08:19 Dose: Infused Lactated Ringer's (Lr 1000 Ml Inj) 1,000 mls @ 30 mls/hr IV.SIG .Q24H [facility] Stop: 03/21/18 05:59 Last Infusion: 03/20/18 10:28 Dose: Infused Sodium Chloride (Ns Inj) 500 mls @ 30 mls/hr IV.SIG .Q10H [facility] Last Admin: 03/20/18 06:37 Dose: Not Given Acetaminophen (Ofirmev Inj) 1,000 mg in 100 mls @ 400 mls/hr IV.SIG Q6H [facility] Stop: 03/21/18 06:14 Last Infusion: 03/20/18 13:34 Dose: Infused Albumin Human (Buminate 5% Inj) 250 mls @ 250 mls/hr IV.SIG UNSCH PRN PRN Reason: SEE LABEL COMMENTS Calcium Chloride 1 gm/ Sodium (Chloride) 110 mls @ 100 mls/hr IV.SIG PRN PRN PRN Reason: SEE LABEL COMMENTS Last Infusion: 03/20/18 14:29 Dose: Infused Cefazolin Sodium 1,000 mg/ (Sodium Chloride) 100 mls @ 200 mls/hr IV.SIG Q8H [facility] Stop: 03/22/18 00:29 Clevidipine (Cleviprex Inj) 25 mg in 50 mls @ 2 mls/hr IV.CONT TITRATE PRN; Protocol PRN Reason: Per protocol Dexmedetomidine HCl 200 mcg/ (Sodium Chloride) 50 mls @ 3.45 mls/hr IV.CONT TITRATE PRN; Protocol PRN Reason: Per Protocol Insulin Human Regular 100 unit (/ Sodium Chloride) 100 mls @ 3 mls/hr IV.CONT TITRATE PRN; Protocol PRN Reason: See Protocol Lactated Ringer's (Lr 1000 Ml Inj) 500 mls @ 500 mls/hr IV.SIG .Q1H PRN PRN Reason: SEE LABEL COMMENTS Magnesium Sulfate 2 gm/ Sodium (Chloride) 100 mls @ 50 mls/hr IV.SIG PRN PRN PRN Reason: SEE LABEL COMMENTS Magnesium Sulfate 2 gm/ Sodium (Chloride) 100 mls @ 50 mls/hr IV.SIG PRN PRN PRN Reason: SEE LABEL COMMENTS Potassium Chloride (Kcl 20 Meq Premix Inj) 20 meq in 100 mls @ 50 mls/hr IV.SIG PRN PRN PRN Reason: SEE LABEL COMMENTS Last Admin: 03/20/18 14:10 Dose: 50 mls/hr Potassium Chloride (Kcl 20 Meq Premix Inj) 20 meq in 100 mls @ 50 mls/hr IV.SIG PRN PRN PRN Reason: SEE LABEL COMMENTS Last Infusion: 03/20/18 13:36 Dose: Infused Potassium Chloride (Kcl 20 Meq Premix Inj) 20 meq in 100 mls @ 50 mls/hr IV.SIG PRN PRN PRN Reason: SEE LABEL COMMENTS Insulin Aspart (Novolog Insulin Correctional Sugar Inj) unit SQ [facility] Metoprolol Tartrate (Lopressor) 12.5 mg PO [employer] [facility] Stop: 03/26/18 05:49 Last Admin: 03/20/18 06:39 Dose: 12.5 mg Metoprolol Tartrate (Lopressor Inj) 2.5 mg IV.PUSH Q1H PRN PRN Reason: SEE LABEL COMMENTS Non-Formulary Medication (Empagliflozin-Metformin [Synjardy]) 1 tab PO BID [facility] Ondansetron HCl (Zofran Inj) 4 mg IV.PUSH Q6H PRN PRN Reason: NAUSEA OR VOMITING Oxycodone/Acetaminophen (Percocet 5/325 Mg) 1 tab PO Q3H PRN PRN Reason: PAIN SCALE 1 TO 5 Pantoprazole Sodium (Protonix) 40 mg PO DAILY@06 [facility] Phenylephrine HCl (Neosynephrine Inj) 0.1 mg IV.PUSH UNSCH PRN PRN Reason: SEE LABEL COMMENTS Potassium Chloride (K-Dur) 20 meq PO UNSCH PRN PRN Reason: SEE LABEL COMMENTS Potassium Chloride (K-Dur) 40 meq PO UNSCH PRN PRN Reason: SEE LABEL COMMENTS Sodium Bicarbonate (Sodium Bicarbonate 8.4% Inj) 50 meq IV.PUSH UNSCH PRN PRN Reason: SEE LABEL COMMENTS Sodium Bicarbonate (Sodium Bicarbonate 8.4% Inj) 100 meq IV.PUSH UNSCH PRN PRN Reason: SEE LABEL COMMENTS Sodium Chloride (Ns Flush) 2 ml IV.FLUSH BID [facility] Sodium Chloride (Ns Flush) 2 ml IV.FLUSH PRN PRN PRN Reason: FLUSH AFTER USING IV ACCESS Allergies Allergy/AdvReac Type Severity Reaction Status Date / Time *MDRO Multi-Drug Resistant AdvReac Unknown MDRO Uncoded 03/20/18 06:41 Organism Home Medications Medication Instructions Recorded Confirmed Type aspirin 81 mg PO DAILY 03/07/18 03/20/18 History atorvastatin 80 mg PO DAILY 03/07/18 03/20/18 History clopidogrel [Plavix] 75 mg PO DAILY 03/07/18 03/20/18 History empagliflozin-metformin [Synjardy] 1 tab PO BID 03/07/18 03/20/18 History fluoxetine 20 mg PO DAILY 03/07/18 03/20/18 History furosemide 40 mg PO DAILY 03/07/18 03/20/18 History gabapentin 600 mg PO DAILY 03/07/18 03/20/18 History insulin aspart U-100 [Novolog 20 sliding scale dose SUBCUT UD 03/07/18 03/20/18 History U-100 Insulin aspart] insulin detemir U-100 [Levemir 20 unit SUBCUT DAILY 03/07/18 03/20/18 History U-100 Insulin] isosorbide mononitrate 60 mg PO QAM 03/07/18 03/20/18 History potassium chloride [K-Tab] 20 meq PO DAILY 03/07/18 03/20/18 History Physical Exam Vital signs: Vital Signs 03/20/18 06:25 03/20/18 12:08 03/20/18 12:36 Temperature 36.1 C L 36.3 C L Pulse Rate 66 80 Respiratory Rate 18 10 L 10 L Blood Pressure 162/74 H Pulse Oximetry 100 99 96 03/20/18 13:51 Temperature Pulse Rate Respiratory Rate 11 L Blood Pressure Pulse Oximetry 98 Intake & Output 03/19/18 03/20/18 03/20/18 18:59 06:59 18:59 Intake Total 4160 / 4160 Output Total 1400 / 1400 Balance 2760 / 2760 Weight 69.1 kg Intake: IV 1460 / 1460 Ofirmev Inj 1,000 mg In 100 ml 100 / 100 @ 400 mls/hr IV.SIG Q6H [facility] Rx# :[id number] Calcium Chloride Inj 1 GM In NS 110 / 110 Inj 100 ML @ 100 mls/hr IV.SIG PRN PRN Rx#:[id number] LR 1000 mL Inj 1,000 ML @ 30 1000 / 1000 mls/hr IV.SIG .Q24H [facility] Rx#: [id number] KCl 20 mEq Premix Inj 20 meq In 100 / 100 100 ml @ 50 mls/hr IV.SIG PRN PRN Rx#:[id number] Ancef 2 GM Premix Inj 2 gm In 50 / 50 50 ml @ 0 mls/hr IV.SIG .STK- [facility] Rx#:[id number] Ancef Inj 2,000 MG In NS Inj 80 100 / 100 ML @ 200 mls/hr IV.SIG [employer] [facility] Rx#:[id number] Anesthesia Amount 2100 / 2100 Cell Saver Amount 600 / 600 Output: Estimated Blood Loss 200 / 200 Urine Amount (Catheter) 1200 / 1200 Indwelling Temp Sensing 1200 / 1200 Catheter Other: # Voids 1 Weight On Admission 69.1 kg Narrative: GENERAL: Middle-age female who appears older than stated age, lying in bed, intubated, arousing from anesthesia but remains sedate. HEENT: Normocephalic. Atraumatic. Pupils equal, round, reactive, conjugate. Mucous membranes are moist NECK: Trachea is midline. There is no JVD. CHEST: Midline sternal wound with VAC dressing in place, site clean and dry. Left subclavian introducer sheath in place with a dressing which is clean dry and intact. 2 chest tubes exit subxiphoid with a minimal amount of sanguinous output. CARDIOVASCULAR: Normal rate, regular rhythm. CVP 3. Sinus. ABDOMEN: Soft, nontender, nondistended. No guarding. MUSCULOSKELETAL: Pulses 2+. No peripheral edema. Leg wrapped in [place] wrap. NEUROLOGICAL: RASS -3. Moves all extremities spontaneously. Does not follow commands. Arousing from anesthesia. - Urinary Catheter Management Indwelling Temp Sensing Catheter Cath placed during this visit: yes Reason for continuing: Hourly intake/output Insertion date: 03/20/18 Insertion time: 07:55 Assessment and Plan - Assessment and Plan Plan: Assessment: 63yF POD 0 s/p on-pump CABG x 3 (WHARTON-->LAD, SVG-->OM, SVG-->RCA). s/p on-pump CABG x 3 (WHARTON-->LAD, SVG-->OM, SVG-->RCA) 03/20 - may need additional resuscitation overnight as CVP is quite low for her EF and hemodynamics - watch lactate, uop closely - watch chest tube output Ischemic cardiomyopathy, EF 25% Systolic Congestive Heart Failure - will need early diuresis POD 1 likely - hold diuresis currently - hold ACEI, BBlocker POD 0. will need to restart when more stabilized. CAD - restart ASA in AM. Hypertension - hold home antihypertensives - goal sbp 90 - 140 mmHg Chronic Kidney Disease, stage III - daily bmp - watch uop closely Diabetes - insulin drip POD 0 transitioning to SSI POD 1. Peripheral vascular disease - distal pulse checks serially. Hypothyroidism - restart home synthroid in AM. wean to extubate on pathway as long as she remains hemodynamically stable. advance diet once extubated PT consult OOB Critical Care Medicine will continue to follow while patient remains in the CVICU.
[2018-03-20] MEDS: Albumin Human 5% Inj 250 ML IV.SIG PRN ×2 (15:05→20:42)
[2018-03-20] MEDS: ceFAZolin 1 GM Premix Inj 1 GM/50 ML FROZ.PIGGY IV.SIG SCH (15:06)
[2018-03-20] MEDS ORDERED: ceFAZolin 1 GM Premix Inj 1 GM/50 ML FROZ.PIGGY IV.SIG SCH (16:00)
[2018-03-20] MEDS: fentaNYL Citrate Inj 100 MCG/2 ML Ampul IV.PUSH PRN ×2 (16:44→20:42)
[2018-03-20] MEDS: Amiodarone 200 MG Tablet PO SCH (20:42)
[2018-03-21] MEDS: ceFAZolin 1 GM Premix Inj 1 GM/50 ML FROZ.PIGGY IV.SIG SCH ×4 (00:03→23:49)
[2018-03-21 04:32] LABS: Hematocrit 32.9 % (35.0-46.0); Hemoglobin 11.3 gm/dL (11.6-15.3); Mean Corpuscular HGB Conc 34.3 % (32.0-36.0); Mean Corpuscular Hemoglobin 31.6 pg (27.0-34.0); Mean Corpuscular Volume 92.3 fL (80.0-100.0); Mean Platelet Volume 9.8 fL (7.0-11.0); Platelet Count 168 th/mm3 (150-450); Red Blood Count 3.56 mil/mm3 (4.00-5.30); Red Cell Distribution Width 13.6 % (11.6-17.2); White Blood Count 17.4 th/mm3 (4.0-11.0)
[2018-03-21 04:54] LABS: Calcium 8.3 mg/dL (8.5-10.1); Carbon Dioxide 27.4 meq/L (21.0-32.0); Magnesium 2.3 mg/dL (1.5-2.5); Potassium 4.4 meq/L (3.5-5.1)
--- NOTE | 2018-03-21 04:59 | XR ---
EXAM DATE: 03/21/2018 4:24 AM EDT AGE/SEX: 63 years / Female INDICATIONS: Shortness of breath, possible pulmonary disease. CLINICAL DATA: This is the patient's subsequent encounter. Patient reports that signs and symptoms h ave been present for 2 days and indicates a pain score of 7/10. MEDICAL/SURGICAL HISTORY: Congestive heart failure. Diabetes. Peripheral artery disease. CAD . CABG. COMPARISON: [facility], CHEST 1V SINGLE AP, 03/20/2018. . FINDINGS: Changes of recent median sternotomy again noted. There is mild bibasilar atelectasis without signific ant change. No pleural effusion. No pneumothorax. Endotracheal tube and nasal gastric tube removed. Mediastinal drain, left chest tube and left subclav mallory central venous catheter remain. CONCLUSION: 1. Mild bibasilar atelectasis. 2. Interim extubation and nasogastric tube removal. Other lines and tubes unchanged, including media stinal drain and left chest tube. No pneumothorax. Electronically signed by: Kavin Cordoba MD 03/21/2018 4:58 AM EDT
[2018-03-21] MEDS ORDERED: Dextrose 50% in Water 50 ML Vial IV.PUSH PRN (08:39)
[2018-03-21] MEDS ORDERED: Bisacodyl 10 MG Supp RECTAL PRN (08:39)
[2018-03-21] MEDS ORDERED: EMPAGLIFLOZIN METFORMIN PO SCH (09:00)
[2018-03-21] MEDS: Gabapentin 300 MG Capsule PO SCH (09:07)
[2018-03-21] MEDS: FLUoxetine 20 MG Capsule PO SCH (09:08)
[2018-03-21] MEDS: Amiodarone 200 MG Tablet PO SCH ×2 (09:09→22:56)
[2018-03-21] MEDS: Multivitamin/Minerals Therapeutic Tablet PO SCH (09:09)
--- NOTE | 2018-03-21 11:07 | P.PNCV ---
- Note Subjective/Hospital Course: A 63-year-old patient of Dr. Crane, Dr. Nimo Hobson/ initially seen 02/25/18 with history of coronary artery disease that was admitted back in 09/2016 with non-STEMI, who underwent cardiac catheterization at that time by Dr. Laws which showed severe multivessel coronary disease with small coronary vessels. The mid segment had a 95% stenosis, the left circumflex had a 99% stenosis. The right coronary artery had a 95% stenosis. It was suggested that this vessel was very small in caliber size, diffusely diseased, and would be high risk for any PCI. At the time, she also had a 2D echocardiogram that showed ejection fraction at that time at 50%. She presented back to [facility] with chest pain for the past couple of weeks. Also, shortness of breath with minimal exertion. Cardiac risk factors include coronary artery disease, hypertension, diabetes mellitus. She underwent cardiac catheterization today, which showed mid distal LAD 80%, the diagonal 80%, the circumflex 100%, the OM 100%, the RCA 100%. Her echocardiogram from the office showed an ejection fraction of 20-25%. No valvular disease. We were consulted to evaluate for candidacy for coronary artery bypass grafting. PAST MEDICAL HISTORY: Includes coronary artery disease, cardiomyopathy, congestive heart failure, [place] class III, chronic kidney disease, cystitis, diabetes on insulin, peripheral vascular disease, hypothyroidism, type2 diabetes. 03/20 pt electively admitted for surgery Date of procedure: 03/20/18 Procedure: CABG x 3 WHARTON to LAD - fair SVG to OM! - poor SVG to RCA - good L EVH extubated after surgery crystalloid 2100cc, cell saver 600cc, EBL 200cc 03/21/18 doing well , up in chair , on room air no pressors, weaned off insulin gtt EF improved to 30% post surgery will need ARETHA when BP tolerates add low dose BB this pm leave chest tubes in resume plavix and low dose metformin Objective: Vital Signs - 24 hr 03/20/18 12:08 03/20/18 12:36 03/20/18 13:51 Temperature 97.3 F L Pulse Rate 80 Respiratory Rate 10 L 10 L 11 L Blood Pressure Pulse Oximetry 99 96 98 03/20/18 15:00 03/20/18 19:00 10/31/18 20:22 Temperature 97.4 F L Pulse Rate 80 81 Respiratory Rate 14 16 Blood Pressure 112/64 103/58 L Pulse Oximetry 99 98 99 03/20/18 21:12 03/20/18 23:00 03/21/18 03:00 Temperature 97.7 F 97.7 F Pulse Rate 78 86 Respiratory Rate 14 16 16 Blood Pressure 101/58 L 94/52 L Pulse Oximetry 99 97 03/21/18 07:00 03/21/18 07:41 03/21/18 07:52 Temperature 97.9 F Pulse Rate 99 H Respiratory Rate 16 Blood Pressure 97/54 L Pulse Oximetry 96 96 03/21/18 09:45 03/21/18 10:41 Temperature Pulse Rate Respiratory Rate 16 Blood Pressure Pulse Oximetry 96 GENERAL: A&O x 3 SKIN: Warm and dry. prevena dressing to chest , aretha wrap to left leg HEAD: Normocephalic. EYES: No scleral icterus. No injection or drainage. NECK: Supple, trachea midline. No JVD or lymphadenopathy. CARDIOVASCULAR: Regular rate and rhythm without murmurs, gallops, or rubs. RESPIRATORY: Breath sounds equal bilaterally. No accessory muscle use. diminished in bases , chest tube now to water seal , no air leak GASTROINTESTINAL: Abdomen soft, non-tender, nondistended. MUSCULOSKELETAL: No cyanosis, or edema. BACK: Nontender without obvious deformity. No CVA tenderness. Labs: Laboratory Results - last 12 hr 03/20/18 03/20/18 03/21/18 06:00 22:41 00:00 WBC RBC Hgb Hct MCV MCH MCHC RDW Plt Count MPV Sodium Potassium Chloride Carbon Dioxide Anion Gap BUN Creatinine Estimated GFR POC Glucose 116 H 106 Random Glucose Calcium Magnesium Blood Type B Negative Blood Type Recheck Not needed Antibody Screen Negative MTS Gel Crossmatch See Detail 03/21/18 03/21/18 03/21/18 02:41 04:04 04:04 WBC 17.4 H RBC 3.56 L Hgb 11.3 L Hct 32.9 L MCV 92.3 MCH 31.6 MCHC 34.3 RDW 13.6 Plt Count 168 MPV 9.8 Sodium 140 Potassium 4.4 Chloride 104 Carbon Dioxide 27.4 Anion Gap 9 BUN 14 Creatinine 0.92 Estimated GFR 61 L POC Glucose 145 H Random Glucose 138 H Calcium 8.3 L Magnesium 2.3 Blood Type Blood Type Recheck Antibody Screen MTS Gel Crossmatch 03/21/18 03/21/18 03/21/18 04:08 06:19 07:43 WBC RBC Hgb Hct MCV MCH MCHC RDW Plt Count MPV Sodium Potassium Chloride Carbon Dioxide Anion Gap BUN Creatinine Estimated GFR POC Glucose 143 H 92 110 Random Glucose Calcium Magnesium Blood Type Blood Type Recheck Antibody Screen MTS Gel Crossmatch 03/21/18 10:44 WBC RBC Hgb Hct MCV MCH MCHC RDW Plt Count MPV Sodium Potassium Chloride Carbon Dioxide Anion Gap BUN Creatinine Estimated GFR POC Glucose 223 H Random Glucose Calcium Magnesium Blood Type Blood Type Recheck Antibody Screen MTS Gel Crossmatch Result Diagrams: 03/21/18 04:04 03/21/18 04:04 Telemetry: NSR - Plan (1) CKD (chronic kidney disease) Plan: creatinine stable 0.92 (3) Diabetes Plan: insulin sliding scale diabetic diet resume 1/2 dose of metformin (4) Hypothyroidism Plan: resume home meds (5) S/P CABG (coronary artery bypass graft) Plan: ASA, statin , BB add aretha when BP allows gentle diuresis (3) Diabetes Qualifiers: Diabetes mellitus type: type 2
[2018-03-21] MEDS: Insulin NovoLOG Aspart Correctional Sugar Inj SQ SCH ×4 (11:17→23:48)
[2018-03-21] MEDS: Insulin Detemir Inj 1,000 UNIT/10 ML Vial SQ SCH ×2 (12:47→22:56)
--- NOTE | 2018-03-21 15:12 | ECG ---
Date Performed: 03/21/2018 Time Performed: 05:30:10 PTAGE: 63 years EKG: Sinus rhythm Inferior infarct - age undetermined Anterolateral T wave changes may be due to myocardial ischemia W hen compard to previous tracing, high lateral ST changes are More prominent. Anterolateral ST changes are slightly improved. Abnormal ECG PREVIOUS TRACING : 03/07/2018 11.45 DOCTOR: Yusef Zabala Interpretating Date/Time 03/21/2018 15:11:22
--- NOTE | 2018-03-21 16:47 | P.DIET ---
Nutritional Evaluation Type of nutrition evaluation: initial Nutrition screening: [facility] Screening comments: 03/21/18 [facility] Diet Education Objective - Diagnosis CABG - Objective Diet Order: Cardiac 1800ADA Soft 40gFat, 2gNa Objective Comments: 03/20/18 CABG x 3 Assessment Assessment: Pt is s/p CABG x 3 (03/20/18). Patient Navigator to provide education. Please Consult RD if complexities with diet education arise. Recommendations: 1. Patient Navigator to provide education 2. Please Consult RD if complexities with diet education arise
[2018-03-21] MEDS: Docusate Sodium 100 MG Capsule PO SCH (22:57)
[2018-03-21] MEDS: Metoprolol Tartrate 25 MG Tablet PO SCH (22:58)
[2018-03-22 05:04] LABS: Baso % (Auto) 0.1 % (0.0-2.0); Eos # (Auto) 0.1 th/mm3 (0.0-0.4); Eos % (Auto) 0.6 % (0.0-4.0); Hematocrit 33.9 % (35.0-46.0); Hemoglobin 11.3 gm/dL (11.6-15.3); Lymph # (Auto) 1.3 th/mm3 (1.0-4.8); Lymph % (Auto) 8.3 % (9.0-44.0); Mean Corpuscular HGB Conc 33.4 % (32.0-36.0); Mean Corpuscular Hemoglobin 31.6 pg (27.0-34.0); Mean Corpuscular Volume 94.5 fL (80.0-100.0); Mean Platelet Volume 9.8 fL (7.0-11.0); Mono # (Auto) 1.3 th/mm3 (0.0-0.9); Mono % (Auto) 8.4 % (0.0-8.0); Neut # (Auto) 12.6 th/mm3 (1.8-7.7); Neut % (Auto) 82.6 % (16.0-70.0); Platelet Count 155 th/mm3 (150-450); Red Blood Count 3.59 mil/mm3 (4.00-5.30); Red Cell Distribution Width 13.4 % (11.6-17.2); White Blood Count 15.2 th/mm3 (4.0-11.0)
[2018-03-22 06:00] LABS: Carbon Dioxide 30.1 meq/L (21.0-32.0); Magnesium 2.2 mg/dL (1.5-2.5); Potassium 5.4 meq/L (3.5-5.1)
[2018-03-22] MEDS: Insulin NovoLOG Aspart Correctional Sugar Inj SQ SCH ×5 (06:39→21:51)
[2018-03-22] MEDS: Amiodarone 200 MG Tablet PO SCH (09:19)
[2018-03-22] MEDS: Insulin Detemir Inj 1,000 UNIT/10 ML Vial SQ SCH ×2 (09:20→21:51)
[2018-03-22] MEDS: Polyethylene Glycol 3350 17 GM Packet PO SCH (09:22)
[2018-03-22] MEDS: Gabapentin 300 MG Capsule PO SCH (09:22)
[2018-03-22] MEDS: Docusate Sodium 100 MG Capsule PO SCH ×2 (09:23→21:49)
[2018-03-22] MEDS: Multivitamin/Minerals Therapeutic Tablet PO SCH (09:23)
[2018-03-22] MEDS: Metoprolol Tartrate 25 MG Tablet PO SCH ×2 (09:24→21:49)
[2018-03-22] MEDS: FLUoxetine 20 MG Capsule PO SCH (09:24)
--- NOTE | 2018-03-22 13:27 | P.PNCV ---
- Note Subjective/Hospital Course: A 63-year-old patient of Dr. Crane, Dr. Nimo Hobson/ initially seen 02/25/18 with history of coronary artery disease that was admitted back in 09/2016 with non-STEMI, who underwent cardiac catheterization at that time by Dr. Laws which showed severe multivessel coronary disease with small coronary vessels. The mid segment had a 95% stenosis, the left circumflex had a 99% stenosis. The right coronary artery had a 95% stenosis. It was suggested that this vessel was very small in caliber size, diffusely diseased, and would be high risk for any PCI. At the time, she also had a 2D echocardiogram that showed ejection fraction at that time at 50%. She presented back to [facility] with chest pain for the past couple of weeks. Also, shortness of breath with minimal exertion. Cardiac risk factors include coronary artery disease, hypertension, diabetes mellitus. She underwent cardiac catheterization today, which showed mid distal LAD 80%, the diagonal 80%, the circumflex 100%, the OM 100%, the RCA 100%. Her echocardiogram from the office showed an ejection fraction of 20-25%. No valvular disease. We were consulted to evaluate for candidacy for coronary artery bypass grafting. PAST MEDICAL HISTORY: Includes coronary artery disease, cardiomyopathy, congestive heart failure, [place] class III, chronic kidney disease, cystitis, diabetes on insulin, peripheral vascular disease, hypothyroidism, type2 diabetes. 03/20 pt electively admitted for surgery Date of procedure: 03/20/18 Procedure: CABG x 3 WHARTON to LAD - fair SVG to OM! - poor SVG to RCA - good L EVH extubated after surgery crystalloid 2100cc, cell saver 600cc, EBL 200cc 03/21/18 doing well , up in chair , on room air no pressors, weaned off insulin gtt EF improved to 30% post surgery will need ARETHA when BP tolerates add low dose BB this pm leave chest tubes in resume plavix and low dose metformin 03/22 pt nauseated this am levemir held / will dc amiodarone chest tubes drained 280cc/ 12hrs leave in start low dose aretha Objective: Vital Signs - 24 hr 03/21/18 15:07 03/21/18 15:53 03/21/18 15:54 Temperature 98.6 F 98.6 F Pulse Rate 79 76 79 Respiratory Rate 16 16 Blood Pressure 94/51 L 94/51 L Pulse Oximetry 92 L 03/21/18 16:00 03/21/18 19:00 03/21/18 20:00 Temperature 98.1 F 99.2 F Pulse Rate 85 78 Respiratory Rate 16 16 Blood Pressure 90/52 L 109/54 L Pulse Oximetry 93 L 94 L 94 L 03/21/18 21:00 03/21/18 22:00 03/21/18 23:00 Temperature 98.4 F Pulse Rate 74 76 76 Respiratory Rate 16 Blood Pressure 115/58 L Pulse Oximetry 92 L 03/22/18 00:00 03/22/18 01:00 03/22/18 03:00 Temperature 98.4 F Pulse Rate 78 80 70 Respiratory Rate 16 Blood Pressure 124/56 L Pulse Oximetry 92 L 03/22/18 04:00 03/22/18 05:00 03/22/18 06:00 Temperature Pulse Rate 70 68 70 Respiratory Rate Blood Pressure Pulse Oximetry 03/22/18 07:00 03/22/18 07:37 03/22/18 07:38 Temperature Pulse Rate 78 40 L Respiratory Rate 18 Blood Pressure Pulse Oximetry 92 L 03/22/18 07:49 03/22/18 08:00 03/22/18 09:00 Temperature 98.1 F Pulse Rate 74 80 Respiratory Rate 18 Blood Pressure 138/65 Pulse Oximetry 92 L 94 L 03/22/18 10:00 03/22/18 10:47 Temperature Pulse Rate 84 70 Respiratory Rate Blood Pressure Pulse Oximetry GENERAL: A&O x 3 SKIN: Warm and dry. prevena dressing to chest / incision intact to left leg HEAD: Normocephalic. EYES: No scleral icterus. No injection or drainage. NECK: Supple, trachea midline. No JVD or lymphadenopathy. CARDIOVASCULAR: Regular rate and rhythm without murmurs, gallops, or rubs. RESPIRATORY: Breath sounds equal bilaterally. No accessory muscle use. diminished in bases / chest tube no air leak GASTROINTESTINAL: Abdomen soft, non-tender, nondistended. MUSCULOSKELETAL: No cyanosis, or edema. BACK: Nontender without obvious deformity. No CVA tenderness. Labs: Laboratory Results - last 12 hr 03/22/18 03/22/18 03/22/18 04:30 04:30 09:31 WBC 15.2 H RBC 3.59 L Hgb 11.3 L Hct 33.9 L MCV 94.5 MCH 31.6 MCHC 33.4 RDW 13.4 Plt Count 155 MPV 9.8 Neut % (Auto) 82.6 H Lymph % (Auto) 8.3 L [place] % (Auto) 8.4 H Eos % (Auto) 0.6 Baso % (Auto) 0.1 Neut # (Auto) 12.6 H Lymph # (Auto) 1.3 [place] # (Auto) 1.3 H Eos # (Auto) 0.1 Baso # (Auto) 0.0 WBC Differential . Differential Comment Auto diff final Sodium 135 L Potassium 5.4 H D Chloride 99 Carbon Dioxide 30.1 Anion Gap 6 BUN 19 H Creatinine 1.03 H Estimated GFR 54 L POC Glucose 177 H Random Glucose 169 H Calcium 8.0 L Magnesium 2.2 03/22/18 12:06 WBC RBC Hgb Hct MCV MCH MCHC RDW Plt Count MPV Neut % (Auto) Lymph % (Auto) [place] % (Auto) Eos % (Auto) Baso % (Auto) Neut # (Auto) Lymph # (Auto) [place] # (Auto) Eos # (Auto) Baso # (Auto) WBC Differential Differential Comment Sodium Potassium Chloride Carbon Dioxide Anion Gap BUN Creatinine Estimated GFR POC Glucose 210 H Random Glucose Calcium Magnesium Result Diagrams: 03/22/18 04:30 03/22/18 04:30 - Plan (1) CKD (chronic kidney disease) Plan: creatinine stable 0.92 gentle diuresis + 4kg (3) Diabetes Plan: insulin sliding scale diabetic diet resume 1/2 dose of metformin (4) Hypothyroidism Plan: resume home meds (5) S/P CABG (coronary artery bypass graft) Plan: ASA, statin , BB add aretha gentle diuresis OOB ambulate pulm toileting leave chest tubes in start low dose aretha (3) Diabetes Qualifiers: Diabetes mellitus type: type 2
[2018-03-23] MEDS ORDERED: Sod Phosphate/Sod Biphosphate (Adult) Enema 133 ML Bottle RECTAL PRN (09:00)
[2018-03-23] MEDS: Insulin Detemir Inj 1,000 UNIT/10 ML Vial SQ SCH ×2 (09:45→21:06)
[2018-03-23] MEDS: Insulin NovoLOG Aspart Correctional Sugar Inj SQ SCH ×4 (09:45→21:06)
[2018-03-23] MEDS: Polyethylene Glycol 3350 17 GM Packet PO SCH (09:46)
[2018-03-23] MEDS: Multivitamin/Minerals Therapeutic Tablet PO SCH (09:46)
[2018-03-23] MEDS: Metoprolol Tartrate 25 MG Tablet PO SCH ×2 (09:46→21:04)
[2018-03-23] MEDS: Gabapentin 300 MG Capsule PO SCH (09:46)
[2018-03-23] MEDS: FLUoxetine 20 MG Capsule PO SCH (09:46)
[2018-03-23] MEDS: Docusate Sodium 100 MG Capsule PO SCH ×2 (09:47→21:04)
--- NOTE | 2018-03-23 11:15 | P.PNCV ---
- Note Subjective/Hospital Course: A 63-year-old patient of Dr. Crane, Dr. Nimo Hobson/ initially seen 02/25/18 with history of coronary artery disease that was admitted back in 09/2016 with non-STEMI, who underwent cardiac catheterization at that time by Dr. Laws which showed severe multivessel coronary disease with small coronary vessels. The mid segment had a 95% stenosis, the left circumflex had a 99% stenosis. The right coronary artery had a 95% stenosis. It was suggested that this vessel was very small in caliber size, diffusely diseased, and would be high risk for any PCI. At the time, she also had a 2D echocardiogram that showed ejection fraction at that time at 50%. She presented back to [facility] with chest pain for the past couple of weeks. Also, shortness of breath with minimal exertion. Cardiac risk factors include coronary artery disease, hypertension, diabetes mellitus. She underwent cardiac catheterization today, which showed mid distal LAD 80%, the diagonal 80%, the circumflex 100%, the OM 100%, the RCA 100%. Her echocardiogram from the office showed an ejection fraction of 20-25%. No valvular disease. We were consulted to evaluate for candidacy for coronary artery bypass grafting. PAST MEDICAL HISTORY: Includes coronary artery disease, cardiomyopathy, congestive heart failure, [place] class III, chronic kidney disease, cystitis, diabetes on insulin, peripheral vascular disease, hypothyroidism, type2 diabetes. 03/20 pt electively admitted for surgery Date of procedure: 03/20/18 Procedure: CABG x 3 WHARTON to LAD - fair SVG to OM! - poor SVG to RCA - good L EVH extubated after surgery crystalloid 2100cc, cell saver 600cc, EBL 200cc 03/21/18 doing well , up in chair , on room air no pressors, weaned off insulin gtt EF improved to 30% post surgery will need ARETHA when BP tolerates add low dose BB this pm leave chest tubes in resume plavix and low dose metformin 03/22 pt nauseated this am levemir held / will dc amiodarone chest tubes drained 280cc/ 12hrs leave in start low dose aretha 03/23 Doing well Chest tube still draining copious serous fluid Reevaluate for removal in a.m. Discharge planning Objective: Vital Signs - 24 hr 03/22/18 12:00 03/22/18 13:00 03/22/18 13:38 Temperature 97.9 F Pulse Rate 82 70 78 Respiratory Rate 16 Blood Pressure 152/70 H Pulse Oximetry 95 03/22/18 15:00 03/22/18 15:12 03/22/18 15:13 Temperature 98.4 F Pulse Rate 70 75 73 Respiratory Rate 16 Blood Pressure 113/56 L Pulse Oximetry 95 03/22/18 16:54 03/22/18 18:00 03/22/18 19:00 Temperature Pulse Rate 72 82 72 Respiratory Rate Blood Pressure Pulse Oximetry 03/22/18 19:26 03/22/18 19:30 03/22/18 20:00 Temperature 98.8 F Pulse Rate 73 72 Respiratory Rate 16 Blood Pressure 119/57 L Pulse Oximetry 93 L 93 L 03/22/18 21:00 03/22/18 22:00 03/22/18 22:20 Temperature Pulse Rate 72 74 Respiratory Rate 16 Blood Pressure Pulse Oximetry 03/22/18 23:00 03/23/18 00:00 03/23/18 01:00 Temperature 98.8 F Pulse Rate 66 68 70 Respiratory Rate 16 Blood Pressure 105/53 L Pulse Oximetry 92 L 03/23/18 02:00 03/23/18 03:00 03/23/18 04:00 Temperature 98.7 F Pulse Rate 67 65 67 Respiratory Rate 16 Blood Pressure 114/56 L Pulse Oximetry 93 L 03/23/18 05:00 03/23/18 06:00 03/23/18 07:00 Temperature Pulse Rate 67 67 70 Respiratory Rate Blood Pressure Pulse Oximetry 03/23/18 08:00 03/23/18 09:00 03/23/18 09:43 Temperature Pulse Rate 77 79 72 Respiratory Rate 14 Blood Pressure Pulse Oximetry 95 03/23/18 10:00 Temperature Pulse Rate 76 Respiratory Rate Blood Pressure Pulse Oximetry Labs: Laboratory Results - last 12 hr 03/20/18 03/23/18 06:00 08:10 POC Glucose 160 H MTS Gel Crossmatch See Detail Result Diagrams: 03/22/18 04:30 03/22/18 04:30 - Plan (1) CKD (chronic kidney disease) Plan: creatinine stable 0.92 gentle diuresis + 4kg (3) Diabetes Plan: insulin sliding scale diabetic diet resume 1/2 dose of metformin (4) Hypothyroidism Plan: resume home meds (5) S/P CABG (coronary artery bypass graft) Plan: ASA, statin , BB add aretha gentle diuresis OOB ambulate pulm toileting leave chest tubes in (3) Diabetes Qualifiers: Diabetes mellitus type: type 2
[2018-03-24] MEDS: Insulin NovoLOG Aspart Correctional Sugar Inj SQ SCH ×4 (08:46→22:48)
[2018-03-24] MEDS: Insulin Detemir Inj 1,000 UNIT/10 ML Vial SQ SCH ×2 (08:46→21:00)
[2018-03-24] MEDS: Polyethylene Glycol 3350 17 GM Packet PO SCH (08:46)
[2018-03-24] MEDS: Multivitamin/Minerals Therapeutic Tablet PO SCH (08:47)
[2018-03-24] MEDS: Docusate Sodium 100 MG Capsule PO SCH ×2 (08:47→22:41)
[2018-03-24] MEDS: Gabapentin 300 MG Capsule PO SCH (08:47)
[2018-03-24] MEDS: Metoprolol Tartrate 25 MG Tablet PO SCH ×2 (08:47→22:43)
[2018-03-24] MEDS: FLUoxetine 20 MG Capsule PO SCH (08:47)
--- NOTE | 2018-03-24 09:53 | P.PNCV ---
- Note Subjective/Hospital Course: A 63-year-old patient of Dr. Crane, Dr. Nimo Hobson/ initially seen 02/25/18 with history of coronary artery disease that was admitted back in 09/2016 with non-STEMI, who underwent cardiac catheterization at that time by Dr. Laws which showed severe multivessel coronary disease with small coronary vessels. The mid segment had a 95% stenosis, the left circumflex had a 99% stenosis. The right coronary artery had a 95% stenosis. It was suggested that this vessel was very small in caliber size, diffusely diseased, and would be high risk for any PCI. At the time, she also had a 2D echocardiogram that showed ejection fraction at that time at 50%. She presented back to [facility], [place] with chest pain for the past couple of weeks. Also, shortness of breath with minimal exertion. Cardiac risk factors include coronary artery disease, hypertension, diabetes mellitus. She underwent cardiac catheterization today, which showed mid distal LAD 80%, the diagonal 80%, the circumflex 100%, the OM 100%, the RCA 100%. Her echocardiogram from the office showed an ejection fraction of 20-25%. No valvular disease. We were consulted to evaluate for candidacy for coronary artery bypass grafting. PAST MEDICAL HISTORY: Includes coronary artery disease, cardiomyopathy, congestive heart failure, [place] class III, chronic kidney disease, cystitis, diabetes on insulin, peripheral vascular disease, hypothyroidism, type2 diabetes. 03/20 pt electively admitted for surgery Date of procedure: 03/20/18 Procedure: CABG x 3 WHARTON to LAD - fair SVG to OM! - poor SVG to RCA - good L EVH extubated after surgery crystalloid 2100cc, cell saver 600cc, EBL 200cc 03/21/18 doing well , up in chair , on room air no pressors, weaned off insulin gtt EF improved to 30% post surgery will need ARETHA when BP tolerates add low dose BB this pm leave chest tubes in resume plavix and low dose metformin 03/22 pt nauseated this am levemir held / will dc amiodarone chest tubes drained 280cc/ 12hrs leave in start low dose aretha 03/23 Doing well Chest tube still draining copious serous fluid Reevaluate for removal in a.m. Discharge planning 03/24 Clinically stable 470 mL out of the chest tube. Maintain to drainage Ambulate and incentive spirometry Discharge planning Objective: Vital Signs - 24 hr 03/23/18 11:00 03/23/18 12:00 03/23/18 13:00 Temperature 97.9 F Pulse Rate 74 71 68 Respiratory Rate 16 12 Blood Pressure 127/58 L Pulse Oximetry 97 03/23/18 14:00 03/23/18 15:00 03/23/18 15:21 Temperature 98 F Pulse Rate 76 77 72 Respiratory Rate 17 Blood Pressure 104/51 L Pulse Oximetry 95 03/23/18 15:54 03/23/18 19:00 03/23/18 20:00 Temperature 98.6 F Pulse Rate 71 72 70 Respiratory Rate 16 Blood Pressure 121/60 Pulse Oximetry 98 03/23/18 21:00 03/23/18 21:23 03/23/18 22:00 Temperature Pulse Rate 73 72 90 Respiratory Rate 16 Blood Pressure Pulse Oximetry 95 03/23/18 23:00 03/23/18 23:45 03/23/18 23:46 Temperature 98.6 F Pulse Rate 85 87 Respiratory Rate 16 16 Blood Pressure 130/60 Pulse Oximetry 93 L 03/24/18 00:00 03/24/18 01:00 EDT 03/24/18 02:00 Temperature Pulse Rate 72 72 72 Respiratory Rate Blood Pressure Pulse Oximetry 03/24/18 03:00 03/24/18 04:00 03/24/18 04:36 Temperature 98.7 F Pulse Rate 72 73 73 Respiratory Rate 16 Blood Pressure 135/63 Pulse Oximetry 95 03/24/18 06:00 Temperature Pulse Rate 71 Respiratory Rate Blood Pressure Pulse Oximetry Labs: Laboratory Results - last 12 hr 03/24/18 08:02 POC Glucose 156 H Result Diagrams: 03/22/18 04:30 03/22/18 04:30 - Plan (1) CKD (chronic kidney disease) Plan: creatinine stable 0.92 gentle diuresis + 4kg (3) Diabetes Plan: insulin sliding scale diabetic diet resume 1/2 dose of metformin (4) Hypothyroidism Plan: resume home meds (5) S/P CABG (coronary artery bypass graft) Plan: ASA, statin , BB add aertha gentle diuresis OOB ambulate pulm toileting leave chest tubes in (3) Diabetes Qualifiers: Diabetes mellitus type: type 2
[2018-03-25] MEDS: Multivitamin/Minerals Therapeutic Tablet PO SCH (08:59)
[2018-03-25] MEDS: Metoprolol Tartrate 25 MG Tablet PO SCH ×2 (08:59→20:56)
[2018-03-25] MEDS: FLUoxetine 20 MG Capsule PO SCH (08:59)
[2018-03-25] MEDS: Gabapentin 300 MG Capsule PO SCH (08:59)
[2018-03-25] MEDS: Docusate Sodium 100 MG Capsule PO SCH ×2 (08:59→20:57)
[2018-03-25] MEDS: Polyethylene Glycol 3350 17 GM Packet PO SCH (09:00)
[2018-03-25] MEDS: Insulin NovoLOG Aspart Correctional Sugar Inj SQ SCH ×4 (09:00→20:55)
[2018-03-25] MEDS: Insulin Detemir Inj 1,000 UNIT/10 ML Vial SQ SCH ×2 (09:45→20:56)
--- NOTE | 2018-03-25 11:16 | P.PNCV ---
- Note Subjective/Hospital Course: A 63-year-old patient of Dr. Crane, Dr. Nimo Hobson/ initially seen 02/25/18 with history of coronary artery disease that was admitted back in 09/2016 with non-STEMI, who underwent cardiac catheterization at that time by Dr. Laws which showed severe multivessel coronary disease with small coronary vessels. The mid segment had a 95% stenosis, the left circumflex had a 99% stenosis. The right coronary artery had a 95% stenosis. It was suggested that this vessel was very small in caliber size, diffusely diseased, and would be high risk for any PCI. At the time, she also had a 2D echocardiogram that showed ejection fraction at that time at 50%. She presented back to [facility] with chest pain for the past couple of weeks. Also, shortness of breath with minimal exertion. Cardiac risk factors include coronary artery disease, hypertension, diabetes mellitus. She underwent cardiac catheterization today, which showed mid distal LAD 80%, the diagonal 80%, the circumflex 100%, the OM 100%, the RCA 100%. Her echocardiogram from the office showed an ejection fraction of 20-25%. No valvular disease. We were consulted to evaluate for candidacy for coronary artery bypass grafting. PAST MEDICAL HISTORY: Includes coronary artery disease, cardiomyopathy, congestive heart failure, [place] class III, chronic kidney disease, cystitis, diabetes on insulin, peripheral vascular disease, hypothyroidism, type2 diabetes. 03/20 pt electively admitted for surgery Date of procedure: 03/20/18 Procedure: CABG x 3 WHARTON to LAD - fair SVG to OM! - poor SVG to RCA - good L EVH extubated after surgery crystalloid 2100cc, cell saver 600cc, EBL 200cc 03/21/18 doing well , up in chair , on room air no pressors, weaned off insulin gtt EF improved to 30% post surgery will need ARETHA when BP tolerates add low dose BB this pm leave chest tubes in resume plavix and low dose metformin 03/22 pt nauseated this am levemir held / will dc amiodarone chest tubes drained 280cc/ 12hrs leave in start low dose aretha 03/23 Doing well Chest tube still draining copious serous fluid Reevaluate for removal in a.m. Discharge planning 03/24 Clinically stable 470 mL out of the chest tube. Maintain to drainage Ambulate and incentive spirometry Discharge planning 03/25 chest tube drained 120cc/ 12 hrs / will re-eval later today for possible removal pm room air , in NSR needs aggressive pulm toileting , diminished breath sounds on left Objective: Vital Signs - 24 hr 03/24/18 12:00 03/24/18 13:00 03/24/18 14:00 Temperature 98 F Pulse Rate 72 65 65 Respiratory Rate 17 Blood Pressure 126/61 Pulse Oximetry 98 03/24/18 15:00 03/24/18 16:00 03/24/18 17:00 Temperature 98.2 F Pulse Rate 70 69 70 Respiratory Rate 16 Blood Pressure 109/53 L Pulse Oximetry 96 03/24/18 17:56 03/24/18 19:00 03/24/18 20:00 Temperature 98.1 F Pulse Rate 72 73 74 Respiratory Rate 16 Blood Pressure 126/58 L Pulse Oximetry 97 03/24/18 21:00 03/24/18 22:00 03/24/18 23:00 Temperature Pulse Rate 74 74 77 Respiratory Rate Blood Pressure Pulse Oximetry 03/24/18 23:06 03/25/18 00:00 03/25/18 01:00 Temperature 98.1 F Pulse Rate 74 74 Respiratory Rate 16 16 Blood Pressure 137/65 Pulse Oximetry 96 03/25/18 02:00 03/25/18 03:00 03/25/18 04:00 Temperature Pulse Rate 72 75 70 Respiratory Rate Blood Pressure Pulse Oximetry 03/25/18 05:00 03/25/18 06:00 03/25/18 06:58 Temperature 97.7 F Pulse Rate 70 75 71 Respiratory Rate 16 Blood Pressure 118/56 L Pulse Oximetry 98 GENERAL: A&O x 3 SKIN: Warm and dry. prevena dressing to chest , incision intact left leg HEAD: Normocephalic. EYES: No scleral icterus. No injection or drainage. NECK: Supple, trachea midline. No JVD or lymphadenopathy. CARDIOVASCULAR: Regular rate and rhythm without murmurs, gallops, or rubs. RESPIRATORY: diminished left lower lobe, chest tube to wall suction/ no air leak / No accessory muscle use. GASTROINTESTINAL: Abdomen soft, non-tender, nondistended. MUSCULOSKELETAL: No cyanosis, or edema. BACK: Nontender without obvious deformity. No CVA tenderness. Labs: Laboratory Results - last 12 hr 03/25/18 03/25/18 08:01 11:03 POC Glucose 201 H 216 H Result Diagrams: 03/22/18 04:30 03/22/18 04:30 - Plan (1) CKD (chronic kidney disease) Plan: creatinine stable 0.92 gentle diuresis + 4kg (3) Diabetes Plan: insulin sliding scale diabetic diet resume 1/2 dose of metformin (4) Hypothyroidism Plan: resume home meds (5) S/P CABG (coronary artery bypass graft) Plan: ASA, statin , BB add aretha gentle diuresis OOB ambulate pulm toileting leave chest tubes in (3) Diabetes Qualifiers: Diabetes mellitus type: type 2
[2018-03-25 12:05] LABS: Baso % (Auto) 0.1 % (0.0-2.0); Eos # (Auto) 0.2 th/mm3 (0.0-0.4); Eos % (Auto) 2.3 % (0.0-4.0); Hematocrit 36.2 % (35.0-46.0); Hemoglobin 12.1 gm/dL (11.6-15.3); Lymph # (Auto) 1.6 th/mm3 (1.0-4.8); Lymph % (Auto) 14.5 % (9.0-44.0); Mean Corpuscular HGB Conc 33.5 % (32.0-36.0); Mean Corpuscular Hemoglobin 32.3 pg (27.0-34.0); Mean Corpuscular Volume 96.5 fL (80.0-100.0); Mean Platelet Volume 9.1 fL (7.0-11.0); Mono % (Auto) 9.8 % (0.0-8.0); Neut # (Auto) 7.9 th/mm3 (1.8-7.7); Neut % (Auto) 73.3 % (16.0-70.0); Platelet Count 259 th/mm3 (150-450); Red Blood Count 3.75 mil/mm3 (4.00-5.30); Red Cell Distribution Width 13.3 % (11.6-17.2); White Blood Count 10.8 th/mm3 (4.0-11.0)
[2018-03-25 12:34] LABS: Calcium 8.3 mg/dL (8.5-10.1); Carbon Dioxide 32.3 meq/L (21.0-32.0); Magnesium 2.6 mg/dL (1.5-2.5); Potassium 4.6 meq/L (3.5-5.1)
--- NOTE | 2018-03-26 05:22 | XR ---
EXAM DATE: 03/26/2018 5:18 AM EST AGE/SEX: 63 years / Female INDICATIONS: Short of breath. CLINICAL DATA: This is the patient's subsequent encounter. Patient reports that signs and symptoms h ave been present for 1 week and indicates a pain score of 0/10. MEDICAL/SURGICAL HISTORY: Congestive heart failure. Diabetes. Peripheral vascular disease. . CAD. CABG. COMPARISON: [facility], CHEST 1V SINGLE AP, 03/21/2018. . FINDINGS: There has been interval removal of thoracostomy tubes and central line. There is subcutaneous emphyse ma over the left chest. No evidence of pneumothorax minimal persistent bilateral perihilar and basila r parenchymal opacity. CONCLUSION: Interval tube and line removal with continued improvement in aeration. Electronically signed by: Kavin Hill MD 03/26/2018 5:21 AM EST
[2018-03-26] MEDS: Multivitamin/Minerals Therapeutic Tablet PO SCH (09:12)
[2018-03-26] MEDS: Docusate Sodium 100 MG Capsule PO SCH ×2 (09:13→21:03)
[2018-03-26] MEDS: Gabapentin 300 MG Capsule PO SCH (09:13)
[2018-03-26] MEDS: FLUoxetine 20 MG Capsule PO SCH (09:14)
[2018-03-26] MEDS: Lisinopril 5 MG Tablet PO SCH (09:14)
[2018-03-26] MEDS: Polyethylene Glycol 3350 17 GM Packet PO SCH (09:16)
[2018-03-26] MEDS: Insulin Detemir Inj 1,000 UNIT/10 ML Vial SQ SCH ×2 (09:17→21:10)
[2018-03-26] MEDS: Insulin NovoLOG Aspart Correctional Sugar Inj SQ SCH ×4 (09:18→21:10)
[2018-03-26] MEDS: Metoprolol Tartrate 25 MG Tablet PO SCH ×2 (09:19→21:03)
[2018-03-26] MEDS: Amiodarone 200 MG Tablet PO SCH ×2 (09:30→21:03)
--- NOTE | 2018-03-26 10:30 | P.DS ---
Date of admission: 03/20/18 05:14 Primary care physician: Sonya Leonardo MD Attending physician on discharge: Naeem Venegas Anticipated date of discharge: 03/26/18 Brief History from admission: A 63-year-old patient of Dr. Crane, Dr. Nimo Hobson/ initially seen 02/25/18 with history of coronary artery disease that was admitted back in 09/2016 with non-STEMI, who underwent cardiac catheterization at that time by Dr. Laws which showed severe multivessel coronary disease with small coronary vessels. The mid segment had a 95% stenosis, the left circumflex had a 99% stenosis. The right coronary artery had a 95% stenosis. It was suggested that this vessel was very small in caliber size, diffusely diseased, and would be high risk for any PCI. At the time, she also had a 2D echocardiogram that showed ejection fraction at that time at 50%. She presented back to [facility] with chest pain for the past couple of weeks. Also, shortness of breath with minimal exertion. Cardiac risk factors include coronary artery disease, hypertension, diabetes mellitus. She underwent cardiac catheterization today, which showed mid distal LAD 80%, the diagonal 80%, the circumflex 100%, the OM 100%, the RCA 100%. Her echocardiogram from the office showed an ejection fraction of 20-25%. No valvular disease. We were consulted to evaluate for candidacy for coronary artery bypass grafting. PAST MEDICAL HISTORY: Includes coronary artery disease, cardiomyopathy, congestive heart failure, [place] class III, chronic kidney disease, cystitis, diabetes on insulin, peripheral vascular disease, hypothyroidism, type2 diabetes. Patient update on day of discharge: pt doing well continue low dose ARETHA, spirolactone BB on room air CXR stable post chest tube removal yesterday stable for dc to rehab DS: Diagnosis - Discharge Diagnosis (1) CKD (chronic kidney disease) Status: Chronic (2) Peripheral vascular disease Status: Chronic (3) Diabetes Status: Chronic (4) Hypothyroidism Status: Chronic (5) S/P CABG (coronary artery bypass graft) Status: Acute (6) Ischemic cardiomyopathy Status: Chronic DS: Medications - Discharge Medications Prescriptions: hydrocodone-acetaminophen [[place]] 1 tab PO Q4H #30 tab DS: Summary Hospital Course: 03/20 pt electively admitted for surgery Date of procedure: 10/31/18 Procedure: CABG x 3 WHARTON to LAD - fair SVG to OM! - poor SVG to RCA - good L EVH extubated after surgery crystalloid 2100cc, cell saver 600cc, EBL 200cc 03/21/18 doing well , up in chair , on room air no pressors, weaned off insulin gtt EF improved to 30% post surgery will need ARETHA when BP tolerates add low dose BB this pm leave chest tubes in resume plavix and low dose metformin 03/22 pt nauseated this am levemir held / will dc amiodarone chest tubes drained 280cc/ 12hrs leave in start low dose aretha 03/23 Doing well Chest tube still draining copious serous fluid Reevaluate for removal in a.m. Discharge planning 03/24 Clinically stable 470 mL out of the chest tube. Maintain to drainage Ambulate and incentive spirometry Discharge planning 03/25 chest tube drained 120cc/ 12 hrs / will re-eval later today for possible removal pm room air , in NSR needs aggressive pulm toileting , diminished breath sounds on left 03/26 stable for dc to rehab on amiodarone x 14 days ARETHA, BB , spironolactone - Time Spent with Patient Total time spent providing and/or coordinating discharge services: Greater than 30 minutes - Quality: VTE Deep Vein Thrombosis/Pulmonary Embolism Present on Admission: No Exam Vital signs: Vital Signs 03/25/18 11:00 03/25/18 12:00 03/25/18 13:00 Temperature 98.7 F Pulse Rate 65 62 63 Respiratory Rate 17 Blood Pressure 107/54 L Pulse Oximetry 97 03/25/18 15:00 03/25/18 16:00 03/25/18 17:00 Temperature 98.3 F Pulse Rate 62 65 67 Respiratory Rate 17 Blood Pressure 109/55 L Pulse Oximetry 98 03/25/18 18:00 03/25/18 19:00 03/25/18 19:53 Temperature 97.7 F Pulse Rate 62 62 62 Respiratory Rate 18 Blood Pressure 119/59 L Pulse Oximetry 95 03/25/18 19:56 03/25/18 20:00 03/25/18 21:00 Temperature Pulse Rate 60 60 72 Respiratory Rate 15 Blood Pressure Pulse Oximetry 97 03/25/18 22:00 03/25/18 23:00 03/26/18 00:00 Temperature 98.1 F Pulse Rate 68 66 65 Respiratory Rate 16 Blood Pressure 115/58 L Pulse Oximetry 97 03/26/18 01:00 03/26/18 01:58 03/26/18 03:00 Temperature Pulse Rate 65 67 65 Respiratory Rate Blood Pressure Pulse Oximetry 03/26/18 04:00 03/26/18 05:00 03/26/18 06:00 Temperature 98.1 F Pulse Rate 67 66 67 Respiratory Rate 16 Blood Pressure 108/55 L Pulse Oximetry 98 03/26/18 07:00 03/26/18 07:35 03/26/18 09:00 Temperature 99.1 F Pulse Rate 68 67 64 Respiratory Rate 17 Blood Pressure 117/57 L Pulse Oximetry 97 03/26/18 10:00 Temperature Pulse Rate 69 Respiratory Rate Blood Pressure Pulse Oximetry Intake & Output 03/25/18 03/26/18 03/26/18 18:59 06:59 18:59 Intake Total 420 / 420 240 / 240 Output Total 800 / 800 200 / 200 Balance -380 / -380 40 / 40 Weight 72.5 kg Intake: Oral 420 / 420 240 / 240 Output: Urine 800 / 800 200 / 200 Other: # Voids 2 Date of Last Bowel Movement 03/26/18 # Bowel Movements 2 - Constitutional no acute distress - Routine HEENT Exam Head: Present: normocephalic Eye: Present: EOMI, normal accommodation - Routine Neck Exam Present: supple, full ROM - Routine Chest/Breast/Axilla Exam Chest wall: Present: tenderness - Routine Respiratory Exam Comments: slightly diminished in left lower lobe - Routine Cardiovascular Exam Present: RRR, S1, S2 - Routine Abdominal Exam Present: soft, normoactive bowel sounds - Routine Extremities Exam Present: full ROM, pulses intact, normal capillary refill - Routine Skin Exam Present: intact, wounds Comments: prevena dressing to chest - Routine Neurological Exam Present: alert, oriented X3 Results Procedures completed during hospitalization: Date of procedure: 03/20/18 Procedure: CABG x 3 WHARTON to LAD - fair SVG to OM! - poor SVG to RCA - good EVH Labs on day of discharge: Labs from last 24 hours 03/26/18 03/25/18 03/25/18 08:07 20:54 11:47 WBC RBC Hgb Hct MCV MCH MCHC RDW Plt Count MPV Neut % (Auto) Lymph % (Auto) Isabel[place] % (Auto) Eos % (Auto) Baso % (Auto) Neut # (Auto) Lymph # (Auto) Isabel[place] # (Auto) Eos # (Auto) Baso # (Auto) WBC Differential Differential Comment Sodium 138 Potassium 4.6 Chloride 99 Carbon Dioxide 32.3 H Anion Gap 7 BUN 14 Creatinine 1.03 H Estimated GFR 54 L POC Glucose 138 H 212 H Random Glucose 173 H Calcium 8.3 L Magnesium 2.6 H 03/25/18 03/25/18 11:47 11:03 WBC 10.8 RBC 3.75 L Hgb 12.1 Hct 36.2 MCV 96.5 MCH 32.3 MCHC 33.5 RDW 13.3 Plt Count 259 D MPV 9.1 Neut % (Auto) 73.3 H Lymph % (Auto) 14.5 Isabela % (Auto) 9.8 H Eos % (Auto) 2.3 Baso % (Auto) 0.1 Neut # (Auto) 7.9 H Lymph # (Auto) 1.6 Isabela # (Auto) 1.0 H Eos # (Auto) 0.2 Baso # (Auto) 0.0 WBC Differential . Differential Comment Auto diff final Sodium Potassium Chloride Carbon Dioxide Anion Gap BUN Creatinine Estimated GFR POC Glucose 216 H Random Glucose Calcium Magnesium - Impressions ITS Impressions Chest X-Ray 03/26/18 06:00 CONCLUSION: Interval tube and line removal with continued improvement in aeration. Discharge Plan - Discharge Disposition Patient Disposition: 62 Rehab Inpatient - Discharge Condition Condition: Good - Discharge Order Discharge Orders: Discharge Order (Routine); Ordered 03/26/18 Ordered By: Echo Bailey - Discharge Details Anticipated Discharge Date: 03/26/18 - Physicians Team Primary Care Provider: Sonya Leonardo Attending Provider: Alivia Hess Other Providers: Riana Mayers - Rxs /Orders / Referrals /Forms Prescriptions: New amiodarone 200 mg Tablet 200 mg PO Q12HR Qty: 28 RF: 0 docusate sodium [DOK] 100 mg Capsule 100 mg PO BID RF: 0 hydrocodone-acetaminophen [[place]] 5-325 mg Tablet 1 tab PO Q4H Qty: 30 RF: 0 insulin aspart U-100 [Novolog U-100 Insulin aspart] 100 unit/mL Solution 0 unit subcut ACHS RF: 0 insulin detemir U-100 [Levemir U-100 Insulin] 100 unit/mL Solution 10 unit subcut BID RF: 0 lisinopril 5 mg Tablet 2.5 mg PO DAILY RF: 0 metoprolol tartrate 25 mg Tablet 12.5 mg PO BID RF: 0 ustrxgyj-rgxh-AZ-calcium-mins [Thera M Plus (ferrous fumarat)] 9 mg iron-400 mcg Tablet 1 tab PO DAILY RF: 0 spironolactone 25 mg Tablet 25 mg PO DAILY Qty: 30 RF: 2 Continue aspirin 81 mg Tablet,Chewable 81 mg PO DAILY atorvastatin 80 mg Tablet 80 mg PO DAILY clopidogrel [Plavix] 75 mg Tablet 75 mg PO DAILY empagliflozin-metformin [Synjardy] 5-1,000 mg Tablet 1 tab PO BID fluoxetine 20 mg Capsule 20 mg PO DAILY gabapentin 600 mg Tablet 600 mg PO DAILY Discontinued furosemide 40 mg Tablet 40 mg PO DAILY insulin aspart U-100 [Novolog U-100 Insulin aspart] 100 unit/mL Solution 20 sliding scale dose SUBCUT UD insulin detemir U-100 [Levemir U-100 Insulin] 100 unit/mL Solution 20 unit SUBCUT DAILY isosorbide mononitrate 60 mg Tablet Extended Release 24 Hr 60 mg PO QAM potassium chloride [K-Tab] 20 mEq Tablet Extended Release 20 meq PO DAILY Ambulatory Orders / Order Sets / DME: XR chest 2V PA&LAT (Routine) Timeframe: 2 Weeks Location: Determined by Patient Ordered By: Echo Bailey Basic Metabolic Panel (Routine) Timeframe: 2 Weeks Location: Determined by Patient Ordered By: Echo Bailey Complete Blood Count NO Diff (Routine) Timeframe: 2 Weeks Location: Determined by Patient Ordered By: Echo Bailey Referrals: oSnya Leonardo Dr [Other] - See Instructions ( Your appointment has been scheduled for [03/28/18] at [10:00 am] If you cannot make this appointment, please call the office to reschedule ) Catalina Crane MD [Physician] - See Instructions ( Your appointment has been scheduled for [04/23/18] at [9:45 am] If you cannot make this appointment, please call the office to reschedule ) Echo Bailey [ADVANCE RN PRACTITIONER] - See Instructions ( Your appointment has been scheduled for [04/18/18] at [10:30 am] If you cannot make this appointment, please call the office to reschedule ) - Discharge Instructions Patient Printed Instructions: Coronary Artery Bypass Graft (DC) Additional Instructions: PREVENA Single Use Negative Wound Therapy System Caregiver Instruction Sheet 1. A Prevena dressing system was applied to the chest incision during surgery , to promote wound healing. It works via a suction device (negative pressure wound therapy) to remove low to moderate levels of exudate (drainage) and infectious materials. We recommend that the device stay in place for up to seven days, from day of surgery. 2. Day of Surgery____03/20/18 Day of Removal ____03/27/18 3. The dressing should only be removed by a health medicare sales representative. Please arrange removal of device to coincide with Home Health visit and or with Nursing staff at Rehab 4. If skin reddening or irritation of skin occurs, or excessive drainage, please notify the Cardiovascular Surgeons office at [phone]. 5. Light showering is permissible; however the pump should be disconnected and placed in safe location, where it will not get wet. The dressing should not be exposed to direct spray or submerged in water. No bath tub / shower only. Ensure the end of the tubing attached to the dressing is facing down so that water does not enter the top of the tube. 6. To remove Prevena dressing: press purple button to turn off device / remove the suction. Then disconnect the tubing from the pump. The fixation strips should be stretched away from the skin and the dressing lifted at one corner and peeled back until it has been fully removed. 7. After removal, it is ok to shower daily using liquid dial soap and clean wash cloth, rinse and pat dry, and leave incision open to air dry. For any concerns regarding Prevena dressing, and or wounds, please contact Mariah Giordano patient navigator at [phone] or notify the Cardiovascular Surgeons office at [phone]. Incentive spirometry Q1 hr x 10, while awake, also use acapella device hourly whole awake Sternal Breast Bone Precautions: NO pushing or pulling, ( pt must use sternal pillow to support chest with all activities and with coughing ( takes up to 3 months breast bone to heal ) All females to wear sternal bra , launder as needed Daily incision care: ok to shower daily, no tub bath. Wash all incisions with liquid dial soap, clean wash cloth to each site, rinse and pat dry. Observe for any signs of infection, such as drainage which is dark yellow, corey, green or foul smelling. Immediately report to the surgeon any drainage from the chest incision, or legs, and for any abnormal drainage from the chest tube sites. Notify surgeon if any temp >101.5 degrees F. When specialty dressing removed/ or if you do not have one, continue to shower daily as above, then rinse and pat incision dry and paint with betadine daily x 5 days. Allow steri strips to fall off if you have any. Avoid lotions, creams, salves, oils, etc. for the first month Please see attached forms for additional instructions regarding post Open Heart specialty wound vacuum dressings. AZEEM or Prevena , Dressing to be removed by Nursing staff on __03/27/[address] Hess patients , please obtain CBC, BMP, PA & Lat CXR in 2 weeks, results to Dr. Hess ( prescription will be given) ( ) (Tele: [phone]) , F/U appointment: as per [facility] instructions: PCP in 2 weeks, CV surgeon 2 weeks, Heel Attacher Wood 3-4 weeks For any questions regarding incisions/ dressing / meds / post op care or above Symptoms, Sunday 8am-5pm Heart & Vascular Surgery Office ( Dr. Venegas & Dr. Hess), After Hours / Nights (5pm -8am) Weekends and Holidays Please call [facility] Cardiac Inter[facility] Unit (C[facility]) Charge Nurse
[2018-03-27] MEDS: Gabapentin 300 MG Capsule PO SCH (08:32)
[2018-03-27] MEDS: Lisinopril 5 MG Tablet PO SCH (08:32)
[2018-03-27] MEDS: Docusate Sodium 100 MG Capsule PO SCH (08:32)
[2018-03-27] MEDS: Metoprolol Tartrate 25 MG Tablet PO SCH (08:33)
[2018-03-27] MEDS: FLUoxetine 20 MG Capsule PO SCH (08:33)
[2018-03-27] MEDS: Multivitamin/Minerals Therapeutic Tablet PO SCH (08:33)
[2018-03-27] MEDS: Amiodarone 200 MG Tablet PO SCH (08:33)
[2018-03-27] MEDS: Insulin Detemir Inj 1,000 UNIT/10 ML Vial SQ SCH (08:35)
[2018-03-27] MEDS: Insulin NovoLOG Aspart Correctional Sugar Inj SQ SCH (08:35)
[2018-03-27] MEDS: Polyethylene Glycol 3350 17 GM Packet PO SCH (08:36)
--- NOTE | 2018-03-27 09:32 | P.PNCV ---
- Note Subjective/Hospital Course: A 63-year-old patient of Dr. Crane, Dr. Nimo Hobson/ initially seen 02/25/18 with history of coronary artery disease that was admitted back in 09/2016 with non-STEMI, who underwent cardiac catheterization at that time by Dr. Laws which showed severe multivessel coronary disease with small coronary vessels. The mid segment had a 95% stenosis, the left circumflex had a 99% stenosis. The right coronary artery had a 95% stenosis. It was suggested that this vessel was very small in caliber size, diffusely diseased, and would be high risk for any PCI. At the time, she also had a 2D echocardiogram that showed ejection fraction at that time at 50%. She presented back to [facility] with chest pain for the past couple of weeks. Also, shortness of breath with minimal exertion. Cardiac risk factors include coronary artery disease, hypertension, diabetes mellitus. She underwent cardiac catheterization today, which showed mid distal LAD 80%, the diagonal 80%, the circumflex 100%, the OM 100%, the RCA 100%. Her echocardiogram from the office showed an ejection fraction of 20-25%. No valvular disease. We were consulted to evaluate for candidacy for coronary artery bypass grafting. PAST MEDICAL HISTORY: Includes coronary artery disease, cardiomyopathy, congestive heart failure, [place] class III, chronic kidney disease, cystitis, diabetes on insulin, peripheral vascular disease, hypothyroidism, type2 diabetes. 03/20 pt electively admitted for surgery Date of procedure: 03/20/18 Procedure: CABG x 3 WHARTON to LAD - fair SVG to OM! - poor SVG to RCA - good L EVH extubated after surgery crystalloid 2100cc, cell saver 600cc, EBL 200cc 03/21/18 doing well , up in chair , on room air no pressors, weaned off insulin gtt EF improved to 30% post surgery will need ARETHA when BP tolerates add low dose BB this pm leave chest tubes in resume plavix and low dose metformin 03/22 pt nauseated this am levemir held / will dc amiodarone chest tubes drained 280cc/ 12hrs leave in start low dose aretha 03/23 Doing well Chest tube still draining copious serous fluid Reevaluate for removal in a.m. Discharge planning 03/24 Clinically stable 470 mL out of the chest tube. Maintain to drainage Ambulate and incentive spirometry Discharge planning 03/25 chest tube drained 120cc/ 12 hrs / will re-eval later today for possible removal pm room air , in NSR needs aggressive pulm toileting , diminished breath sounds on left 03/26 discharge summary completed 03/27 on room air, pain controlled , + stable for dc Objective: Vital Signs - 24 hr 03/26/18 10:00 03/26/18 11:00 03/26/18 11:11 Temperature 98.9 F Pulse Rate 69 63 65 Respiratory Rate 18 Blood Pressure 148/65 H Pulse Oximetry 97 03/26/18 13:00 03/26/18 14:00 03/26/18 15:00 Temperature Pulse Rate 65 67 69 Respiratory Rate Blood Pressure Pulse Oximetry 03/26/18 15:22 03/26/18 15:23 03/26/18 15:54 Temperature 98.7 F Pulse Rate 68 74 Respiratory Rate 18 17 Blood Pressure 123/60 Pulse Oximetry 95 97 03/26/18 17:00 03/26/18 18:00 03/26/18 19:00 Temperature Pulse Rate 64 65 63 Respiratory Rate Blood Pressure Pulse Oximetry 03/26/18 20:00 03/26/18 21:00 03/26/18 21:36 Temperature 98.0 F Pulse Rate 64 70 69 Respiratory Rate 16 16 Blood Pressure 112/53 L Pulse Oximetry 98 97 03/26/18 22:00 03/26/18 23:00 03/27/18 00:00 Temperature 98.7 F Pulse Rate 74 72 68 Respiratory Rate 16 Blood Pressure 111/53 L Pulse Oximetry 96 03/27/18 01:00 03/27/18 02:00 03/27/18 03:00 Temperature Pulse Rate 68 67 70 Respiratory Rate Blood Pressure Pulse Oximetry 03/27/18 04:00 03/27/18 05:00 03/27/18 05:56 Temperature Pulse Rate 65 64 63 Respiratory Rate 16 Blood Pressure 111/56 L Pulse Oximetry 98 Result Diagrams: 03/25/18 11:47 03/25/18 11:47 - Plan (1) CKD (chronic kidney disease) Plan: creatinine stable 0.92 gentle diuresis + 4kg (3) Diabetes Plan: insulin sliding scale diabetic diet resume 1/2 dose of metformin (4) Hypothyroidism Plan: resume home meds (5) S/P CABG (coronary artery bypass graft) Plan: ASA, statin , BB add aretha gentle diuresis OOB ambulate pulm toileting leave chest tubes in (3) Diabetes Qualifiers: Diabetes mellitus type: type 2
== END 2018-03-27 11:08 ==
LOC: HSDI 05:14 → HCVI 12:17 → HCPC 03-21 17:20
PROVIDERS: ADMIT Thoracic Surgery (Cardiothoracic Vascular Surgery); ATTEND Thoracic Surgery (Cardiothoracic Vascular Surgery)

== ENCOUNTER 2018-04-10 12:50 | Observation (INO) ==
[2018-04-10] MEDS ORDERED: Sodium Chlor 0.9% Inj 500 ML IV.SIG ONE (13:15)
--- NOTE | 2018-04-10 13:23 | ED ---
HPI General Chief Complaint: Arrhythmia / Palpitations Stated Complaint: irregular heart rate complaint Time Seen by Provider: 04/10/18 13:15 Source: patient Mode of arrival: wheelchair Limitations: no limitations History of Present Illness HPI narrative: The patient is a 63-year-old female who presents to the emergency department from her manager commission's office, Dr. Noguera, for elevated heart rate. The patient is status post CABG at the end of February by Dr. Hess. The patient was doing well until 2 days ago when she developed an elevated heart rate. The patient feels like her heart is racing, is elevated, and when she was evaluated by Dr. Noguera was noted to be in atrial flutter. Dr. Noguera did come by the emergency department and recommends that the patient be kept n.p.o., Eliquis 5 mg orally, and he will take her to the cardiac lab for DELANO and possible cardioversion. The patient is already on amiodarone. The patient does complain of an elevated heart rate and mild shortness of breath but denies any chest pain. She denies any nausea or vomiting. She denies any previous history of atrial fibrillation or atrial flutter. The patient does not have a primary physician, is followed by her care assistant men's soccer coach, Pamela Solares RN at [facility]. The patient's manager commission is currently Dr. Noguera. complaint: Reports rapid heart beat and "heart racing" Onset (ago): day(s) Duration: constant Severity: moderate Context: Reports occurred during rest Arrhythmia history: Reports other Associated symptoms: Reports shortness of breath Treatments prior to arrival: Reports other Related Data Home Medications Medication Instructions Recorded Confirmed aspirin 81 mg PO DAILY 03/07/18 04/10/18 atorvastatin 80 mg PO DAILY 03/07/18 04/10/18 clopidogrel [Plavix] 75 mg PO DAILY 03/07/18 04/10/18 empagliflozin-metformin [Synjardy] 1 tab PO BID 03/07/18 04/10/18 fluoxetine 20 mg PO DAILY 03/07/18 04/10/18 gabapentin 600 mg PO DAILY 03/07/18 04/10/18 amiodarone 200 mg PO DAILY 04/10/18 04/10/18 Previous Rx's Medication Instructions Recorded docusate sodium [DOK] 100 mg PO BID cap 03/26/18 hydrocodone-acetaminophen [[place]] 1 tab PO Q4H #30 tab 03/26/18 insulin aspart U-100 [Novolog 0 unit SUBCUT ACHS ml 03/26/18 U-100 Insulin aspart] insulin detemir U-100 [Levemir 10 unit SUBCUT BID ml 03/26/18 U-100 Insulin] lisinopril 2.5 mg PO DAILY tab 03/26/18 metoprolol tartrate 12.5 mg PO BID tab 03/26/18 eiogvznu-bkbm-YR-calcium-mins 1 tab PO DAILY tab 03/26/18 [Thera M Plus (ferrous fumarat)] spironolactone 25 mg PO DAILY #30 tab 03/26/18 Allergies Allergy/AdvReac Type Severity Reaction Status Date / Time *MDRO Multi-Drug Resistant AdvReac Unknown MDRO Uncoded 04/10/18 13:16 Organism Review of Systems ROS: all other systems reviewed are negative [facility] Medical History Medical History History of skin cancer (Acute) CAD (coronary artery disease) (Acute) CHF (congestive heart failure) (Acute) CKD (chronic kidney disease), stage III (Acute) Diabetes (Acute) HTN (hypertension) (Acute) Hx MRSA infection (Acute) Hypothyroid (Acute) PVD (peripheral vascular disease) (Acute) SOB (shortness of breath) (Acute) Skin cancer (Acute) Tooth infection (Acute) Surgical History Surgical History Hx of cataract surgery (Acute) Hx of hernia repair (Acute) S/P CABG (coronary artery bypass graft) (Acute) Social History Social History Substance History: No History of Abuse Second Hand Smoke Exposure: No Smoking Status: Never smoker How Often Do You Have a Drink Containing Alcohol: 2 to 4 times a month Recent Travel in [facility] within the Last 8 Weeks: No Recent Out of Country Travel within the Last 8 Weeks: No Exam Narrative Exam Narrative: GENERAL: Awake, alert, pleasant 63-year-old female who appears her stated age and is in no acute respiratory distress. SKIN: Focused skin assessment warm/dry. HEAD: Atraumatic. Normocephalic. EYES: No injection or drainage. ENT: No nasal bleeding or discharge. Mucous membranes pink and moist. NECK: Trachea midline. No JVD. CARDIOVASCULAR: Regular, tachycardic with a heart rate of approximately 140. Healing sternal scar with Steri-Strips in place. RESPIRATORY: No accessory muscle use. Clear to auscultation. Breath sounds equal bilaterally. GASTROINTESTINAL: Abdomen soft, non-tender, nondistended. MUSCULOSKELETAL: No obvious deformities. No clubbing. No cyanosis. No edema. NEUROLOGICAL: Awake and alert. No obvious cranial nerve deficits. Motor grossly within normal limits. Normal speech. PSYCHIATRIC: Appropriate mood and affect; insight and judgment normal. Course Initial Documented Vital Signs Temperature 97.3 F L 04/10/18 13:04 Pulse Rate 138 H 04/10/18 13:04 Respiratory Rate 22 04/10/18 13:04 Blood Pressure 110/55 L 04/10/18 13:04 Pulse Oximetry 100 04/10/18 13:04 Last Documented Vital Signs Temperature 98.0 F 04/11/18 03:00 Pulse Rate 60 04/11/18 06:00 Respiratory Rate 16 04/11/18 03:00 Blood Pressure 118/76 04/11/18 03:00 Pulse Oximetry 99 04/11/18 03:00 Medical Decision Making MDM Narrative Medical decision making narrative: IV was established, labs are drawn and sent, and the patient was placed on cardiac telemetry monitoring and continuous pulse oximetry monitoring. EKG was ordered and interpreted. Chest x-ray was obtained. I discussed the patient with Dr. Noguera in person, he recommends Eliquis 5 mg orally and keep the patient n.p.o. as the patient may go to cardiac lab for DELANO and possible cardio conversion. A courtesy call was placed to Dr. Hess as the patient is within 30 days of surgery and will be admitted to the hospital. I discussed the patient with Dr. Hess who is aware that the patient will be admitted for atrial flutter with RVR. I discussed the patient with the residents who agreed with admission. The patient will be admitted to the medical service. Medical Screen Exam Complete: Yes Emergency Medical Condition: Yes Differential Diagnosis Differential Diagnosis: Differential diagnosis includes atrial flutter, atrial fibrillation, dysrhythmia, arrhythmia, electrolyte abnormality, acute kidney injury, status post CABG, pulmonary embolism, hyperthyroidism. Lab Data Lab results reviewed: Yes I reviewed the patient's lab results. Result diagrams: 04/10/18 13:23 04/10/18 15:10 Lab Results 04/10/18 04/10/18 04/10/18 Range/Units 13:23 15:10 15:10 WBC 13.3 H (4.0-11.0) th/mm3 RBC 4.60 (4.00-5.30) mil/mm3 Hgb 14.9 (11.6-15.3) gm/dL Hct 42.9 (35.0-46.0) % MCV 93.2 (80.0-100.0) fL MCH 32.3 (27.0-34.0) pg MCHC 34.6 (32.0-36.0) % RDW 14.2 (11.6-17.2) % Plt Count 377 D (150-450) th/mm3 MPV 9.5 (7.0-11.0) fL Prelim Diff (Auto) Slide review pending Neut % (Auto) 67.5 (16.0-70.0) % Lymph % (Auto) 17.1 (9.0-44.0) % [place] % (Auto) 7.0 (0.0-8.0) % Eos % (Auto) 7.4 H (0.0-4.0) % Baso % (Auto) 1.0 (0.0-2.0) % Neut # (Auto) 9.0 H (1.8-7.7) th/mm3 Lymph # (Auto) 2.3 (1.0-4.8) th/mm3 [place] # (Auto) 0.9 (0.0-0.9) th/mm3 Eos # (Auto) 1.0 H (0.0-0.4) th/mm3 Baso # (Auto) 0.1 (0.0-0.2) th/mm3 WBC Differential . Diff Scan Auto diff confirmed Differential Comment . Platelet Estimate Normal (Normal) Platelet Morphology Normal (Normal) Ovalocytes 1+ H (None) PT 11.3 (9.8-11.6) sec INR 1.1 Ratio APTT 26.1 (23.4-31.7) sec Sodium 135 L (136-145) meq/L Potassium 5.2 H (3.5-5.1) meq/L Chloride 104 (98-107) meq/L Carbon Dioxide 22.3 (21.0-32.0) meq/L Anion Gap 9 (5-15) meq/L BUN 20 H (7-18) mg/dL Creatinine 1.11 H (0.50-1.00) mg/dL Estimated GFR 49 L (>89) mL/min POC Glucose (68-110) mg/dl Random Glucose 320 H (74-106) mg/dL Calcium 8.2 L (8.5-10.1) mg/dL Magnesium 2.1 (1.5-2.5) mg/dL Total Bilirubin 0.6 (0.2-1.0) mg/dL AST 52 H (15-37) U/L ALT 31 (10-53) U/L Alkaline Phosphatase 117 (45-117) U/L Total Creatine Kinase 99 (26-192) U/L Troponin I Less than 0.02 L (0.02-0.05) ng/mL Total Protein 6.7 (6.4-8.2) g/dL Albumin 2.9 L (3.4-5.0) g/dL 04/10/18 Range/Units 18:01 WBC (4.0-11.0) th/mm3 RBC (4.00-5.30) mil/mm3 Hgb (11.6-15.3) gm/dL Hct (35.0-46.0) % MCV (80.0-100.0) fL MCH (27.0-34.0) pg MCHC (32.0-36.0) % RDW (11.6-17.2) % Plt Count (150-450) th/mm3 MPV (7.0-11.0) fL Prelim Diff (Auto) Neut % (Auto) (16.0-70.0) % Lymph % (Auto) (9.0-44.0) % [place] % (Auto) (0.0-8.0) % Eos % (Auto) (0.0-4.0) % Baso % (Auto) (0.0-2.0) % Neut # (Auto) (1.8-7.7) th/mm3 Lymph # (Auto) (1.0-4.8) th/mm3 [place] # (Auto) (0.0-0.9) th/mm3 Eos # (Auto) (0.0-0.4) th/mm3 Baso # (Auto) (0.0-0.2) th/mm3 WBC Differential Diff Scan Differential Comment Platelet Estimate (Normal) Platelet Morphology (Normal) Ovalocytes (None) PT (9.8-11.6) sec INR Ratio APTT (23.4-31.7) sec Sodium (136-145) meq/L Potassium (3.5-5.1) meq/L Chloride (98-107) meq/L Carbon Dioxide (21.0-32.0) meq/L Anion Gap (5-15) meq/L BUN (7-18) mg/dL Creatinine (0.50-1.00) mg/dL Estimated GFR (>89) mL/min POC Glucose 269 H (68-110) mg/dl Random Glucose (74-106) mg/dL Calcium (8.5-10.1) mg/dL Magnesium (1.5-2.5) mg/dL Total Bilirubin (0.2-1.0) mg/dL AST (15-37) U/L ALT (10-53) U/L Alkaline Phosphatase (45-117) U/L Total Creatine Kinase (26-192) U/L Troponin I (0.02-0.05) ng/mL Total Protein (6.4-8.2) g/dL Albumin (3.4-5.0) g/dL Imaging Data Radiologist's impression: Chest X-Ray 04/10/18 13:15 CONCLUSION: No acute disease ECG Data EKG Prior to Arrival: No Attestation: I personally reviewed and interpreted this ECG as follows: Interpretation: EKG reveals atrial flutter with a rate of 133, 2-[address] and T wave changes. Discharge Plan Discharge Disposition Patient Disposition: 30 Still Patient Discharge Condition Condition: Stable Discharge Details Diagnosis: Atrial flutter with rapid ventricular response Physicians Team ED Provider: Kg Tapia Primary Care Provider: UNKNOWN, Attending Provider: Zheng Noel Other Providers: [employer] ; Henrry Torre Status ED Status: Left Department Discharge Information Discharge Date/Time: 04/10/18 15:25
[2018-04-10 13:40] LABS: Baso # (Auto) 0.1 th/mm3 (0.0-0.2); Eos % (Auto) 7.4 % (0.0-4.0); Hematocrit 42.9 % (35.0-46.0); Hemoglobin 14.9 gm/dL (11.6-15.3); Lymph # (Auto) 2.3 th/mm3 (1.0-4.8); Lymph % (Auto) 17.1 % (9.0-44.0); Mean Corpuscular HGB Conc 34.6 % (32.0-36.0); Mean Corpuscular Hemoglobin 32.3 pg (27.0-34.0); Mean Corpuscular Volume 93.2 fL (80.0-100.0); Mean Platelet Volume 9.5 fL (7.0-11.0); Mono # (Auto) 0.9 th/mm3 (0.0-0.9); Neut % (Auto) 67.5 % (16.0-70.0); Platelet Count 377 th/mm3 (150-450); Red Cell Distribution Width 14.2 % (11.6-17.2); White Blood Count 13.3 th/mm3 (4.0-11.0)
--- NOTE | 2018-04-10 13:53 | XR ---
EXAM DATE: 04/10/2018 1:48 PM EST AGE/SEX: 63 years / Female INDICATIONS: High heart rate, s/p CABG 1 month. CLINICAL DATA: This is the patient's initial encounter. Patient reports that signs and symptoms have been present for 1 day and indicates a pain score of 0/10. MEDICAL/SURGICAL HISTORY: Myocardial infarction. CABG. COMPARISON: [facility] [place], CHEST 1V SINGLE AP, 03/26/2018. . FINDINGS: A single AP view of the chest demonstrates the lungs to be symmetrically aerated without evidence of mass, infiltrate or effusion. The cardiomediastinal contours are unremarkable. Osseous structures a re intact. Sternotomy wires again noted. CONCLUSION: No acute disease Electronically signed by: Kavin Hill MD 04/10/2018 1:52 PM EST
[2018-04-10 14:13] LABS: Ovalocytes 1+; Platelet Estimate Normal (Normal); Platelet Morphology Normal (Normal)
--- NOTE | 2018-04-10 14:20 | P.HPFP ---
History of Present Illness Primary Care Physician: UNKNOWN <Marlon Aguirre - 04/14/18 07:55> UNKNOWN <Marcus Urena III - 04/10/18 14:20> Chief Complaint: SOB, palpitations <Marcus Urena III - 04/10/18 16:00> History of Present Illness: Ms Cabrera is a 63 YO female with PMHx DMT2, CKD, HTN, HLD, CHF s/p 3 vessel CABG performed by Dr Hess in Feb [address] Noguera's office with atrial flutter and palpitations and complaint of SOB and dizziness with standing for the past few days. There is no complaint of CP. She reports she used to be able to walk [place]4 [place] without fatigue, but now cannot walk across the room without getting SOB. Patient had 2 cardiac stents placed many years ago. After her CABG in February, she went to rehab and discharged home on March 27. She states that her heart "has been acting up ever since she got home." She reports the spells of dyspnea, dizziness and palpitations have been intermittent since then, but became constant 2-[address] Ivy saw that she was in atrial flutter in office today and sent her here for cardioversion and possible DELANO. She denies nausea, vomiting. Patient's sister and daughter are decision makers. PMH: diabetes insulin dependent neuropathy CKD CAD hyperlipidemia hypertension cardiomyopathy CHF PVD hypothyroidism PSH: cataract surgery skin cancer removal hernia repair CABGX3 Allergies: NKDA Meds: novolog sliding scale levemir 12 u BID other medications as documented in chart Family Hx: father: CHF mother: kidney disease, diabetes Social Hx: never smoker- second hand smoke exposure alcohol: 2-3 drinks per week but has not had a drink in 2 months illicit drugs: as a teenager Lives with cousin in [facility] <Marcus Urena III - 04/10/18 16:00> - Diagnosis (1) Atrial flutter with rapid ventricular response (2) S/P CABG (coronary artery bypass graft) (3) CAD (coronary artery disease) (4) Ischemic cardiomyopathy (5) Systolic heart failure (6) CKD (chronic kidney disease) (7) Peripheral vascular disease (8) Diabetes (9) Nutrition, metabolism, and development symptoms <Marlon Aguirre - 04/14/18 07:55> (1) Atrial flutter with rapid ventricular response (2) S/P CABG (coronary artery bypass graft) (3) CAD (coronary artery disease) (4) Ischemic cardiomyopathy (5) Systolic heart failure (6) CKD (chronic kidney disease) (7) Peripheral vascular disease (8) Diabetes (9) Nutrition, metabolism, and development symptoms <[facility] 04/10[facility] 15:25> Review of Systems Constitutional: Denies chills, Denies fever(s) <[facility]/10[facility] 16:00> Eyes: Denies change in vision <[facility] 04/10/18 16:00> Ears, Nose, Mouth, and Throat: Reports dizziness <[facility] 16:00> Cardiovascular: Reports lightheadedness, Reports rapid, pounding, or irregular heartbeat, Reports shortness of breath, Denies chest pain <Romel [facility] 04/10/18 16:00> Respiratory: Reports shortness of breath, Denies cough <Janetteshama [facility] 04/10/18 16:00> Gastrointestinal: Reports nausea, Denies abdominal pain, Denies loose stools, Denies vomiting <Romel [facility] 04/10/18 16:00> Genitourinary: Denies painful urination, Denies urinary incontinence <[facility] 04/10/18 16:00> Musculoskeletal: Denies back pain <Romel [facility] 04/10/18 16:00> Skin/Breast: Denies lesions, Denies rash <Janetteshama [facility] 04/10/18 16:00> Neurologic: Reports dizziness, Reports sensory deficit (peripheral neuropathy in legs below the knees), Reports tingling <Romel [facility] 04/10/18 16: 00> Hematologic/Lymphatic: Denies easy bleeding, Denies easy bruising <Romel CHOU [facility] 04/10/18 16:00> PMFSH - History History Provided By: Patient <Romel [facility] 04/10/18 14:20> - Medical History Medical History: Medical History (Last Updated 04/10/18 @ 15:38 by Marcus Urena III, MD, R2) History of skin cancer CAD (coronary artery disease) CHF (congestive heart failure) CKD (chronic kidney disease), stage III Diabetes HTN (hypertension) Hx MRSA infection Hypothyroid PVD (peripheral vascular disease) SOB (shortness of breath) Skin cancer Tooth infection <Marlon Aguirre - 04/14/18 07:55> Medical History (Last Updated 04/10/18 @ 15:38 by Marcus Urena III, MD, R2) History of skin cancer CAD (coronary artery disease) CHF (congestive heart failure) CKD (chronic kidney disease), stage III Diabetes HTN (hypertension) Hx MRSA infection Hypothyroid PVD (peripheral vascular disease) SOB (shortness of breath) Skin cancer Tooth infection <Marcus Urena III 04/10/18 16:00> - Surgical History Surgical History: Surgical History (Last Updated 04/10/18 @ 15:38 by Marcus Urena III, MD, R2) Hx of cataract surgery Hx of hernia repair S/P CABG (coronary artery bypass graft) <Marlon Aguirre - 04/14/18 07:55> Surgical History (Last Updated 04/10/18 @ 15:38 by Marcus Urena III, MD, R2) Hx of cataract surgery Hx of hernia repair S/P CABG (coronary artery bypass graft) <Marcus Urena III 04/10/18 16:00> - Social History I have reviewed the patient's Social History: Yes <Marcus Urena III 16:00> - Tobacco History Second Hand Smoke Exposure: No <Marcus Urena III 04/10/18 14:20> Tobacco Use In Past 30 Days: No <Marcus Urena III 04/10/18 16:00> Smoking Status: Never smoker <Marcus Urena III 04/10/18 14:20> - Alcohol History How Often Do You Have a Drink Containing Alcohol: 2 to 4 times a month < Marcus Urena III 04/10/18 14:20> - Substance Use History Substance History: No History of Abuse <Marcus Urena III 04/10/18 14:20> - Travel History Recent Travel in the [place] Within the Last 8 Weeks: No <Marcus Urena III - 14:20> Recent Travel Out of the Country Within the Last 8 Weeks: No <Marcus Urena III - 04/10/18 14:20> - Immunization History Tetanus Immunization: >5 Years <Marcus Urena III - 04/10/18 14:20> Medications and Allergies Allergies Allergy/AdvReac Type Severity Reaction Status Date / Time *MDRO Multi-Drug Resistant AdvReac Unknown MDRO Uncoded 04/10/18 13:16 Organism <Marlon Aguirre - 04/14/18 07:55> Home Medications Medication Instructions Recorded Confirmed Type aspirin 81 mg PO DAILY 03/07/18 04/10/18 History atorvastatin 80 mg PO DAILY 03/07/18 04/10/18 History empagliflozin-metformin [Synjardy] 1 tab PO BID 03/07/18 04/10/18 History fluoxetine 20 mg PO DAILY 03/07/18 04/10/18 History gabapentin 600 mg PO DAILY 03/07/18 04/10/18 History amiodarone 200 mg PO DAILY 04/10/18 04/10/18 History <Marlon Aguirre - 04/14/18 07:55> Active Medications: Active Medications Acetaminophen (Tylenol) 650 mg PO Q4H PRN PRN Reason: Temp > 100.4 Amiodarone HCl (Cordarone) 200 mg PO DAILY [facility] Last Admin: 04/11/18 08:45 Dose: 200 mg Apixaban (Eliquis) 5 mg PO BID [facility] Last Admin: 04/11/18 08:46 Dose: 5 mg Aspirin (Aspirin Chew) 81 mg PO DAILY [facility] Last Admin: 04/11/18 08:45 Dose: 81 mg Atorvastatin Calcium (Lipitor) 80 mg PO DAILY [facility] Last Admin: 04/11/18 08:46 Dose: 80 mg Fluoxetine HCl (Prozac) 20 mg PO DAILY [facility] Last Admin: 04/11/18 08:46 Dose: 20 mg Gabapentin (Neurontin) 600 mg PO DAILY [facility] Last Admin: 04/11/18 08:46 Dose: 600 mg Insulin Detemir (Levemir Inj) 10 unit SQ BID [facility] Last Admin: 04/11/18 08:47 Dose: 10 unit Lisinopril (Prinivil) 2.5 mg PO DAILY [facility] Last Admin: 04/11/18 08:45 Dose: 2.5 mg Metoprolol Tartrate (Lopressor) 12.5 mg PO BID [facility] Last Admin: 04/11/18 08:46 Dose: 12.5 mg Multivitamins/Minerals (Theragran-M) 1 tab PO DAILY [facility] Last Admin: 04/11/18 08:46 Dose: 1 tab Ondansetron HCl (Zofran Inj) 4 mg IV.PUSH Q6H PRN PRN Reason: NAUSEA OR VOMITING Senna/Docusate Sodium (Jennifer-Colace) 1 tab PO BID [facility] Last Admin: 04/11/18 08:47 Dose: 1 tab Sodium Chloride (Ns Flush) 2 ml IV.FLUSH UNSCH PRN PRN Reason: FLUSH AFTER USING IV ACCESS Last Admin: 04/10/18 20:31 Dose: 2 ml Spironolactone (Aldactone) 25 mg PO DAILY [facility] Last Admin: 04/11/18 08:46 Dose: 25 mg <Marlon Aguirre - 04/14/18 07:55> Active Medications Sodium Chloride (Ns Inj) 500 mls @ 500 mls/hr IV.SIG ONCE ONE Stop: 04/10/18 14:14 Last Admin: 04/10/18 13:30 Dose: 500 mls/hr Sodium Chloride (Ns Flush) 2 ml IV.FLUSH UNSCH PRN PRN Reason: FLUSH AFTER USING IV ACCESS <Marcus Urena III - 04/10/18 14:20> Exam Vital signs: Vital Signs 04/10/18 13:04 04/10/18 13:22 Temperature 97.3 F L Pulse Rate 138 H 136 H Respiratory Rate 22 17 Blood Pressure 110/55 L 150/75 H Pulse Oximetry 100 96 Intake & Output 04/09/18 04/10/18 04/10/18 18:59 06:59 18:59 Weight 67.132 kg <Marcus Urena III - 04/10/18 14:20> Narrative: GENERAL: Elderly female lying in bed in NAD, speaking in broken sentences due to SOB. SKIN: Warm and dry. No rash. Stage 2 sacral pressure ulcer in the midline gluteal cleft at the superior portion of the gluts. HEAD: Normocephalic. Atraumatic. MMM. Poor dentition. EYES: No scleral icterus. No injection or drainage. NECK: Supple, trachea midline. No JVD or lymphadenopathy. CARDIOVASCULAR: Tachycardic, irregular rhythm without murmurs, gallops, or rubs. RESPIRATORY: Breath sounds equal bilaterally. No accessory muscle use. No wheezing. Moves air poorly. GASTROINTESTINAL: Abdomen soft, non-tender, nondistended. MUSCULOSKELETAL: No cyanosis, or edema. BACK: Nontender without obvious deformity. No CVA tenderness. <Romel CHOUMarcus - 04/10/18 16:00> Results - Labs Result diagrams: 04/11/18 06:57 04/11/18 06:57 <Marlon Aguirre - 04/14/18 07:55> Abnormal lab results 04/10/18 Range/Units 13:23 WBC 13.3 H (4.0-11.0) th/mm3 Eos % (Auto) 7.4 H (0.0-4.0) % Neut # (Auto) 9.0 H (1.8-7.7) th/mm3 Eos # (Auto) 1.0 H (0.0-0.4) th/mm3 Short CBC 04/10/18 Range/Units 13:23 WBC 13.3 H (4.0-11.0) th/mm3 Hgb 14.9 (11.6-15.3) gm/dL Hct 42.9 (35.0-46.0) % Plt Count 377 D (150-450) th/mm3 <Romel [facility] 04/10/18 14:20> - Imaging Impressions Chest X-Ray 04/10/18 13:15 CONCLUSION: No acute disease <Romel CHOUMarcus - 04/10/18 14:20> Caprini VTE Risk Assessment Caprini VTE Risk Assessment: Moderate/High Risk (score >= 2) <Romel CHOU Marcus 04/10/18 16:00> Caprini Risk Assessment Model: Point Value = 1 Point Value = 2 Point Value = 3 Point Value = 5 Age 41-60 Minor surgery BMI > 25 kg/m2 Swollen legs Varicose veins or History of unexplained or recurrent spontaneous Oral contraceptives or hormone replacement Sepsis (< 1 month) Serious lung disease, including pneumonia (< 1 month) Abnormal pulmonary function Acute myocardial infarction Congestive heart failure (< 1 month) History of inflammatory bowel disease Medical patient at bed rest Age 61-74 Arthroscopic surgery Major open surgery (> 45 min) Laparoscopic surgery (> 45 min) Malignancy Confined to bed (> 72 hours) Immobilizing plaster cast Central venous access Age >= 75 History of VTE Family history of VTE Factor V Leiden Prothrombin [id number] Lupus anticoagulant Anticardiolipin antibodies Elevated serum homocysteine Heparin-induced thrombocytopenia Other congenital or acquired thrombophilia Stroke (< 1 month) Elective arthroplasty Hip, pelvis, or leg fracture Acute spinal cord injury (< 1 month) <Marlon Aguirre 04/14/18 07:55> Prophylaxis Regimen: Total Risk Factor Score Risk Level Prophylaxis Regimen 0-1 Low Early ambulation 2 Moderate Order ONE of the following: *Sequential Compression Device (SCD) *Heparin 5000 units SQ BID 3-4 Higher Order ONE of the following medications: *Heparin 5000 units SQ TID *Enoxaparin/Lovenox 40 mg SQ daily (WT < 150 kg, CrCl > 30 mL/min) *Enoxaparin/Lovenox 30 mg SQ daily (WT < 150 kg, CrCl > 10-29 mL/min) *Enoxaparin/Lovenox 30 mg SQ BID (WT < 150 kg, CrCl > 30 mL/min) AND/OR *Sequential Compression Device (SCD) 5 or more Highest Order ONE of the following medications: *Heparin 5000 units SQ TID (Preferred with Epidurals) *Enoxaparin/Lovenox 40 mg SQ daily (WT < 150 kg, CrCl > 30 mL/min) *Enoxaparin/Lovenox 30 mg SQ daily (WT < 150 kg, CrCl > 10-29 mL/min) *Enoxaparin/Lovenox 30 mg SQ BID (WT < 150 kg, CrCl > 30 mL/min) AND *Sequential Compression Device (SCD) <Marlon Aguirre 04/14/18 07:55> Assessment and Plan - Assessment (1) Atrial flutter with rapid ventricular response Code(s): I48.92 - Unspecified atrial flutter Status: Acute (2) S/P CABG (coronary artery bypass graft) Code(s): Z95.1 - Presence of aortocoronary bypass graft Status: Acute (3) CAD (coronary artery disease) Code(s): I25.10 - Atherosclerotic heart disease of [place] coronary artery without angina pectoris Status: Acute (4) Ischemic cardiomyopathy Code(s): I25.5 - Ischemic cardiomyopathy Status: Chronic (5) Systolic heart failure Code(s): I50.20 - Unspecified systolic (congestive) heart failure Status: Acute (6) CKD (chronic kidney disease) Code(s): N18.9 - Chronic kidney disease, unspecified Status: Chronic (7) Peripheral vascular disease Code(s): I73.9 - Peripheral vascular disease, unspecified Status: Chronic (8) Diabetes Code(s): E11.9 - Type 2 diabetes mellitus without complications Status: Chronic (9) Nutrition, metabolism, and development symptoms Code(s): R63.8 - Other symptoms and signs concerning food and fluid intake Status: Acute <Marlon Aguirre K - 04/14/18 07:55> (1) Atrial flutter with rapid ventricular response Code(s): I48.92 - Unspecified atrial flutter Status: Acute (2) S/P CABG (coronary artery bypass graft) Code(s): Z95.1 - Presence of aortocoronary bypass graft Status: Acute (3) CAD (coronary artery disease) Code(s): I25.10 - Atherosclerotic heart disease of [place] coronary artery without angina pectoris Status: Acute (4) Ischemic cardiomyopathy Code(s): I25.5 - Ischemic cardiomyopathy Status: Chronic (5) Systolic heart failure Code(s): I50.20 - Unspecified systolic (congestive) heart failure Status: Acute (6) CKD (chronic kidney disease) Code(s): N18.9 - Chronic kidney disease, unspecified Status: Chronic (7) Peripheral vascular disease Code(s): I73.9 - Peripheral vascular disease, unspecified Status: Chronic (8) Diabetes Code(s): E11.9 - Type 2 diabetes mellitus without complications Status: Chronic (9) Nutrition, metabolism, and development symptoms Code(s): R63.8 - Other symptoms and signs concerning food and fluid intake Status: Acute <Romel CHOUMarcus H - 04/10/18 15:25> - Assessment and Plan 63 YO female with multiple problems sent from Dr Noguera's clinic with Atrial flutter/RVR in high 130s for DELANO and cardioversion. Admit and consult cardiology. Impression: -EKG PLAN: Atrial flutter/RVR -Consult Cardiology/Dr Noguera--appreciate recs -NPO -Eliquis 5 mg BID -DELANO and Cardioversion s/p CABG -Continue Plavix and ASA due to recent CABG HTN -Continue amiodarone, lisinopril, metoprolol, spironolactone tomorrow HLD -Continue Atorvastatin Depression -Continue fluoxetine FEN/GI/PPx: NS IVF 500 ml once; careful with CHF Hx Electrolytes wnl NPO No PPI Eliquis as per above PT SDW Jose Aguirre and Dunia <Marcus Urena III - 04/10/18 16:00> - Attending Attestation This patient was admitted initially to the wrong service. Seen by resident team in ED, but handed over to [facility] team when realized that they had [employer]. <Marlon Aguirre - 04/14/18 07:55> <Marcus Urena III H - Last Filed: 04/10/18 15:25> (8) Diabetes Qualifiers: Diabetes mellitus type: type 2 <Marlon Aguirre - Last Filed: 04/14/18 07:55> (8) Diabetes Qualifiers: Diabetes mellitus type: type 2 <Marcus Urena III H - Last Filed: 04/10/18 15:25> (8) Diabetes Qualifiers: Diabetes mellitus type: type 2 <Marlon Aguirre K - Last Filed: 04/14/18 07:55> (8) Diabetes Qualifiers: Diabetes mellitus type: type 2
[2018-04-10 15:42] LABS: Activated Partial Thrombo Time 26.1 sec (23.4-31.7); INR 1.1 Ratio
[2018-04-10 15:47] LABS: Prothrombin Time 11.3 sec (9.8-11.6)
[2018-04-10 15:59] LABS: Alanine Aminotransferase 31 U/L (10-53); Albumin 2.9 g/dL (3.4-5.0); Alkaline Phosphatase 117 U/L (45-117); Anion Gap 9 meq/L (5-15); Aspartate Aminotransferase 52 U/L (15-37); Blood Urea Nitrogen 20 mg/dL (7-18); Calcium 8.2 mg/dL (8.5-10.1); Carbon Dioxide 22.3 meq/L (21.0-32.0); Chloride 104 meq/L (98-107); Glomerular Filtration Rate 49 mL/min (>89); Glucose,Random 320 mg/dL (74-106); Magnesium 2.1 mg/dL (1.5-2.5); Sodium 135 meq/L (136-145); Total Protein 6.7 g/dL (6.4-8.2)
[2018-04-10 16:00] LABS: Creatine Kinase 99 U/L (26-192); Potassium 5.2 meq/L (3.5-5.1)
[2018-04-10] MEDS ORDERED: Acetaminophen 325 MG Tablet PO PRN (16:00)
[2018-04-10] MEDS: Senna/Docusate Sodium 8.6/50 MG Tablet PO SCH (20:30)
[2018-04-10] MEDS: Metoprolol Tartrate 25 MG Tablet PO SCH (20:30)
[2018-04-10] MEDS: Insulin Detemir Inj 1,000 UNIT/10 ML Vial SQ SCH (20:31)
[2018-04-10] MEDS ORDERED: Docusate Sodium 100 MG Capsule PO SCH (21:00)
--- NOTE | 2018-04-11 01:00 | P.PCNCA ---
- Cardiology Procedure Note Procedure: Transesophageal echocardiogram (DELANO done on [employer] machine, unable to upload at this time) Procedure Date: 04/11/18 Procedure Detail: Consent obtained Anesthesia at the bedside for sedation LV: EF 20-25%, global hypokinesis, no thrombus noted RV: Mild dysfunction LA: Mildly dilated RA: Normal size MERI: No thrombus noted AV: Trileaflet, no stenosis, trace aortic regurgitation MV: Normal structurally, trace regurgitation, no stenosis PV: Mild thickening of one leaflet, no regurgitation/stenosis TV: Normal structurally, mild regurgitation, no stenosis IAS: No interatrial shunt noted by color or agitated saline Patient tolerated the procedure well
--- NOTE | 2018-04-11 01:01 | P.PCNCA ---
- Cardiology Procedure Note Procedure: Cardioversion Procedure Date: 04/10/18 Procedure Detail: Consent obtained before DELANO Anesthesia at the bedside with continued sedation after DELANO Placed in supine position with pads placed Rhythm Aflutter with RVR Synchronized cardioversion at 200J x1 Post-Rhythm Normal sinus Tolerated the procedure well
--- NOTE | 2018-04-11 01:35 | MB ---
cc: See Noguera DO DATE: 04/10/2018 REASON FOR CONSULTATION: Atrial flutter with rapid ventricular response. HISTORY OF PRESENT ILLNESS: Daily Cabrera is a pleasant 63-year-old female, whom I saw in the office today, and I requested to come over to the hospital for admission. She previously underwent coronary artery bypass grafting by Dr. Pichardo in 02/2018. Afterwards, she went to rehab and was discharged home on 03/27/2018. She states that since that time, her heart rates have been high, and she has been significantly short of breath. She has also been somewhat dizzy. On seeing her in the office, her heart rate was 140, and blood pressure was 90/60. Because of this, I asked that she come over to the emergency room immediately for admission and consideration of transesophageal echocardiogram and cardioversion. She denies current chest pain. PAST MEDICAL HISTORY: 1. Coronary artery disease. 2. Diabetes. 3. Neuropathy. 4. Chronic kidney disease. 5. New onset atrial flutter. 6. Hyperlipidemia. 7. Hypertension. 8. Cardiomyopathy. 9. Peripheral artery disease. 10. Hypothyroidism. PAST SURGICAL HISTORY: 1. CABG x3 (03/20/2018) with WHARTON to LAD, SVG to OM1, SVG to RCA. 2. Cardiac catheterization (03/07/2018): Left main small vessel with moderate irregularity. LAD small vessel with severe diffuse tubular lesion in the mid where there is a diagonal bifurcation. The ostium of the diagonal is severely diseased. Left circumflex 100% occluded in the proximal portion with [id number] collaterals. RCA: Small vessel with severe diffuse disease in the proximal portion and [id number] collaterals that reconstitute the posterolateral branch as well as the PDA. 3. Cataract surgery. 4. Skin cancer removal. 5. Hernia repair. 6. Two previous cardiac stents placed many years ago. ALLERGIES: DENIES. MEDICATIONS: 1. Plavix 75 mg daily. 2. Fluoxetine 20 mg daily. 3. Lipitor 80 mg daily. 4. Aspirin 81 mg daily. 5. Synjardy 09/999 b.i.d. 6. Gabapentin 600 mg daily. 7. NovoLog with meals. 8. Insulin Detemir 10 units b.i.d. 9. Metoprolol tartrate 12.5 mg b.i.d. 10. Spironolactone 25 mg daily. 11. [place] every 4 hours as needed. 12. Lisinopril 2.5 mg daily. 13. Amiodarone 200 mg daily. FAMILY HISTORY: She denies premature coronary artery disease or sudden cardiac within the family. SOCIAL HISTORY: She denies tobacco abuse. Rarely drinks. She has a history of illicit drug abuse as a teenager. REVIEW OF SYSTEMS: Fourteen systems were reviewed including osteopathic. Pertinent positives and negatives above. Otherwise, negative. PHYSICAL EXAMINATION: VITAL SIGNS: Temperature 97.3, heart rate 138, blood pressure 110/55, respirations 22, pulse oximetry 100% on room air. GENERAL: The patient appears somewhat in distress and not feeling well. She is somewhat short of breath at baseline. Alert, awake, and oriented x3. HEENT: Extraocular muscles intact. Mucous membranes moist. NECK: Supple. No JVD at 45 degrees. No carotid bruits heard bilaterally. Carotid upstroke is brisk in nature. HEART: Tachycardic and irregular with no murmurs, gallops, or rubs. Sternotomy is clean, dry, and intact. LUNGS: Breath sounds are equal bilaterally with no accessory muscle use. ABDOMEN: Soft, nontender, nondistended. No organomegaly noted. EXTREMITIES: No clubbing, cyanosis, or edema. Femoral and distal pulses are intact bilaterally. NEUROLOGIC: No focal deficits. SKIN: Warm, dry, and intact. OSTEOPATHIC: No kyphoscoliosis, lordosis, or paraspinal tender points. LABORATORY DATA: Hemoglobin 14.9, hematocrit 42.9, platelets 377. Potassium 5.2, BUN 20, creatinine 1.11. Troponin less than 0.02. Electrocardiogram (04/10/2018 at 1328): Atrial flutter with rapid ventricular response, moderate interventricular conduction delay. IMPRESSION: 1. Atrial flutter with rapid ventricular response. 2. Hypotension secondary to atrial flutter with rapid ventricular response. 3. Dizziness due to atrial flutter with rapid ventricular response. 4. Coronary artery disease with a history of recent CABG as above. 5. Cardiomyopathy. 6. Hypertension. 7. Hyperlipidemia. 8. Diabetes mellitus. RECOMMENDATIONS: 1. Ms. Cabrera had recent CABG and is now noted to be in atrial flutter with rapid ventricular response and significant shortness of breath and dizziness, most likely due to this. 2. She will be admitted and planned for a transesophageal echocardiogram with cardioversion this afternoon. 3. I have asked that she get Eliquis while in the emergency room, and we will continue on this 5 mg b.i.d. 4. Since we will be starting her on Eliquis, we will plan on stopping her Plavix, and she will most likely be discharged on aspirin and Eliquis therapy. 5. She is currently on amiodarone 200 mg daily, and we will continue this to try to keep her out of atrial flutter. 6. She will continue on her current heart failure medications including spironolactone, metoprolol, and lisinopril. 7. After cardioversion if stable in the morning, can be discharged home for followup with me in the office. 8. If further episodes of atrial flutter, she may need to be considered for ablation. Thank you for allowing me to see Daily Cabrera. If there are any questions, please do not hesitate to call. See Noguera DO VGP/rm , 12:53 AM , 01:08 AM
[2018-04-11 07:29] LABS: Baso # (Auto) 0.1 th/mm3 (0.0-0.2); Baso % (Auto) 1.3 % (0.0-2.0); Eos # (Auto) 1.1 th/mm3 (0.0-0.4); Eos % (Auto) 13.4 % (0.0-4.0); Hematocrit 34.8 % (35.0-46.0); Hemoglobin 12.4 gm/dL (11.6-15.3); Lymph # (Auto) 1.9 th/mm3 (1.0-4.8); Lymph % (Auto) 23.5 % (9.0-44.0); Mean Corpuscular HGB Conc 35.7 % (32.0-36.0); Mean Corpuscular Hemoglobin 32.6 pg (27.0-34.0); Mean Corpuscular Volume 91.3 fL (80.0-100.0); Mean Platelet Volume 8.6 fL (7.0-11.0); Mono # (Auto) 0.7 th/mm3 (0.0-0.9); Mono % (Auto) 8.4 % (0.0-8.0); Neut # (Auto) 4.4 th/mm3 (1.8-7.7); Neut % (Auto) 53.4 % (16.0-70.0); Platelet Count 256 th/mm3 (150-450); Red Blood Count 3.82 mil/mm3 (4.00-5.30); Red Cell Distribution Width 13.8 % (11.6-17.2); White Blood Count 8.2 th/mm3 (4.0-11.0)
--- NOTE | 2018-04-11 07:46 | P.PNCA ---
Subjective Interval history: No complaints Medications and Allergies Active Medications: Active Medications Acetaminophen (Tylenol) 650 mg PO Q4H PRN PRN Reason: Temp > 100.4 Amiodarone HCl (Cordarone) 200 mg PO DAILY [facility] Apixaban (Eliquis) 5 mg PO BID [facility] Last Admin: 04/10/18 21:59 Dose: 5 mg Aspirin (Aspirin Chew) 81 mg PO DAILY [facility] Atorvastatin Calcium (Lipitor) 80 mg PO DAILY [facility] Fluoxetine HCl (Prozac) 20 mg PO DAILY [facility] Gabapentin (Neurontin) 600 mg PO DAILY [facility] Insulin Detemir (Levemir Inj) 10 unit SQ BID [facility] Last Admin: 04/10/18 20:31 Dose: 10 unit Lisinopril (Prinivil) 2.5 mg PO DAILY [facility] Metoprolol Tartrate (Lopressor) 12.5 mg PO BID [facility] Last Admin: 04/10/18 20:30 Dose: 12.5 mg Multivitamins/Minerals (Theragran-M) 1 tab PO DAILY [facility] Ondansetron HCl (Zofran Inj) 4 mg IV.PUSH Q6H PRN PRN Reason: NAUSEA OR VOMITING Senna/Docusate Sodium (Jennifer-Colace) 1 tab PO BID [facility] Last Admin: 04/10/18 20:30 Dose: 1 tab Sodium Chloride (Ns Flush) 2 ml IV.FLUSH UNSCH PRN PRN Reason: FLUSH AFTER USING IV ACCESS Last Admin: 04/10/18 20:31 Dose: 2 ml Spironolactone (Aldactone) 25 mg PO DAILY [facility] Allergies Allergy/AdvReac Type Severity Reaction Status Date / Time *MDRO Multi-Drug Resistant AdvReac Unknown MDRO Uncoded 04/10/18 13:16 [facility] Medications Medication Instructions Recorded Confirmed Type aspirin 81 mg PO DAILY 03/07/18 04/10/18 History atorvastatin 80 mg PO DAILY 03/07/18 04/10/18 History clopidogrel [Plavix] 75 mg PO DAILY 03/07/18 04/10/18 History empagliflozin-metformin [Synjardy] 1 tab PO BID 03/07/18 04/10/18 History fluoxetine 20 mg PO DAILY 03/07/18 04/10/18 History gabapentin 600 mg PO DAILY 03/07/18 04/10/18 History amiodarone 200 mg PO DAILY 04/10/18 04/10/18 History Physical Exam Vital signs: Vital Signs 04/10/18 13:04 04/10/18 13:22 04/10/18 15:12 Temperature 97.3 F L Pulse Rate 138 H 136 H 113 H Respiratory Rate 22 17 19 Blood Pressure 110/55 L 150/75 H 95/58 L Pulse Oximetry 100 96 100 04/10/18 17:51 04/10/18 17:53 04/10/18 19:00 Temperature 97.2 F L 97.8 F Pulse Rate 67 69 Respiratory Rate 17 16 Blood Pressure 121/80 113/67 Pulse Oximetry 100 100 99 04/10/18 20:00 04/10/18 21:00 04/10/18 22:00 Temperature Pulse Rate 70 70 66 Respiratory Rate Blood Pressure Pulse Oximetry 04/10/18 23:00 04/11/18 00:00 04/11/18 01:00 Temperature 97.6 F Pulse Rate 67 68 62 Respiratory Rate 16 Blood Pressure 128/74 Pulse Oximetry 98 04/11/18 02:00 04/11/18 03:00 04/11/18 04:00 Temperature 98.0 F Pulse Rate 68 64 53 L Respiratory Rate 16 Blood Pressure 118/76 Pulse Oximetry 99 04/11/18 05:00 04/11/18 06:00 Temperature Pulse Rate 55 L 60 Respiratory Rate Blood Pressure Pulse Oximetry Intake & Output 04/10/18 04/11/18 04/11/18 18:59 06:59 18:59 Intake Total 740 / 740 480 / 480 Output Total 150 / 150 600 / 600 Balance 590 / 590 -120 / -120 Weight 67.132 kg 66.5 kg Intake: IV 500 / 500 NS Inj 500 ML @ 500 mls/hr IV. 500 / 500 SIG ONCE ONE Rx#:[id number] Oral 240 / 240 480 / 480 Output: Urine 150 / 150 600 / 600 Narrative: GENERAL: Alert, NAD HEAD: Normocephalic. Atraumatic. Poor dentition. NECK: Supple, trachea midline. No JVD CARDIOVASCULAR: Normal S1S2 RRR without murmurs, gallops, or rubs. RESPIRATORY: Breath sounds equal bilaterally. GASTROINTESTINAL: Abdomen soft, non-tender, nondistended. MUSCULOSKELETAL: No cyanosis, or edema. TELE: sinus rhythm since cardioversion Results 04/11/18 06:57 04/10/18 15:10 Cardiac Enzymes 11/21/18 Range/Units 15:10 AST 52 H (15-37) U/L Troponin I Less than 0.02 L (0.02-0.05) ng/mL Coagulation 04/10/18 Range/Units 15:10 PT 11.3 (9.8-11.6) sec APTT 26.1 (23.4-31.7) sec CBC 04/10/18 04/11/18 Range/Units 13:23 06:57 WBC 13.3 H 8.2 (4.0-11.0) th/mm3 RBC 4.60 3.82 L (4.00-5.30) mil/mm3 Hgb 14.9 12.4 D (11.6-15.3) gm/dL Hct 42.9 34.8 L (35.0-46.0) % Plt Count 377 D 256 D (150-450) th/mm3 Neut # (Auto) 9.0 H 4.4 (1.8-7.7) th/mm3 Lymph # (Auto) 2.3 1.9 (1.0-4.8) th/mm3 [place] # (Auto) 0.9 0.7 (0.0-0.9) th/mm3 Eos # (Auto) 1.0 H 1.1 H (0.0-0.4) th/mm3 Baso # (Auto) 0.1 0.1 (0.0-0.2) th/mm3 Comprehensive Metabolic Panel 04/10/18 Range/Units 15:10 Sodium 135 L (136-145) meq/L Potassium 5.2 H (3.5-5.1) meq/L Chloride 104 (98-107) meq/L Carbon Dioxide 22.3 (21.0-32.0) meq/L BUN 20 H (7-18) mg/dL Creatinine 1.11 H (0.50-1.00) mg/dL Calcium 8.2 L (8.5-10.1) mg/dL AST 52 H (15-37) U/L ALT 31 (10-53) U/L Alkaline Phosphatase 117 (45-117) U/L Total Protein 6.7 (6.4-8.2) g/dL Albumin 2.9 L (3.4-5.0) g/dL Intake and Output 04/10/18 04/11/18 04/11/18 22:59 06:59 14:59 Intake Total 240 / 240 480 / 480 Output Total 150 / 150 600 / 600 Balance 90 / 90 -120 / -120 Intake: Oral 240 / 240 480 / 480 Output: Urine 150 / 150 600 / 600 Other: Weight 66.5 kg - Imaging and Cardiology Imaging: Impressions Chest X-Ray 04/10/18 13:15 CONCLUSION: No acute disease Assessment and Plan - Assessment (1) S/P CABG (coronary artery bypass graft) Code(s): Z95.1 - Presence of aortocoronary bypass graft Status: Acute (2) Atrial flutter with rapid ventricular response Code(s): I48.92 - Unspecified atrial flutter Status: Acute - Plan Patient's rhythm stable now. Cont Eliquis and ASA. Stop clopidogrel. Cont. AMIO. OK to DC home as long as labs OK.
[2018-04-11 08:24] LABS: Albumin 2.9 g/dL (3.4-5.0); Anion Gap 9 meq/L (5-15); Aspartate Aminotransferase 21 U/L (15-37); Blood Urea Nitrogen 17 mg/dL (7-18); Calcium 8.4 mg/dL (8.5-10.1); Carbon Dioxide 24.1 meq/L (21.0-32.0); Chloride 105 meq/L (98-107); Glomerular Filtration Rate 55 mL/min (>89); Glucose,Random 265 mg/dL (74-106); Potassium 4.5 meq/L (3.5-5.1); Sodium 138 meq/L (136-145)
[2018-04-11 08:28] LABS: Alanine Aminotransferase 25 U/L (10-53); Alkaline Phosphatase 110 U/L (45-117); Total Protein 6.2 g/dL (6.4-8.2)
[2018-04-11] MEDS: Metoprolol Tartrate 25 MG Tablet PO SCH (08:46)
[2018-04-11] MEDS: Senna/Docusate Sodium 8.6/50 MG Tablet PO SCH (08:47)
[2018-04-11] MEDS: Insulin Detemir Inj 1,000 UNIT/10 ML Vial SQ SCH (08:47)
[2018-04-11] MEDS ORDERED: Lisinopril 5 MG Tablet PO SCH (09:00)
[2018-04-11] MEDS ORDERED: FLUoxetine 20 MG Capsule PO SCH (09:00)
[2018-04-11] MEDS ORDERED: Multivitamin/Minerals Therapeutic Tablet PO SCH (09:00)
[2018-04-11] MEDS ORDERED: Gabapentin 300 MG Capsule PO SCH (09:00)
[2018-04-11] MEDS ORDERED: Spironolactone 25 MG Tablet PO SCH (09:00)
[2018-04-11] MEDS ORDERED: Amiodarone 200 MG Tablet PO SCH (09:00)
--- NOTE | 2018-04-11 12:17 | P.PN ---
Subjective Interval history: Follow-up of atrial fibrillation with RVR April 11, 2018-patient seen and examined; HR controlled, no chest pain/SOB/ dizziness. Hyperkalemia resolved Physical Exam Vital signs: Vital Signs 04/10/18 13:04 04/10/18 13:22 04/10/18 15:12 Temperature 97.3 F L Pulse Rate 138 H 136 H 113 H Respiratory Rate 22 17 19 Blood Pressure 110/55 L 150/75 H 95/58 L Pulse Oximetry 100 96 100 04/10/18 17:51 04/10/18 17:53 04/10/18 19:00 Temperature 97.2 F L 97.8 F Pulse Rate 67 69 Respiratory Rate 17 16 Blood Pressure 121/80 113/67 Pulse Oximetry 100 100 99 04/10/18 20:00 04/10/18 21:00 04/10/18 22:00 Temperature Pulse Rate 70 70 66 Respiratory Rate Blood Pressure Pulse Oximetry 04/10/18 23:00 04/11/18 00:00 04/11/18 01:00 Temperature 97.6 F Pulse Rate 67 68 62 Respiratory Rate 16 Blood Pressure 128/74 Pulse Oximetry 98 04/11/18 02:00 04/11/18 03:00 04/11/18 04:00 Temperature 98.0 F Pulse Rate 68 64 53 L Respiratory Rate 16 Blood Pressure 118/76 Pulse Oximetry 99 04/11/18 05:00 04/11/18 06:00 04/11/18 07:00 Temperature 97.9 F Pulse Rate 55 L 60 60 Respiratory Rate 16 Blood Pressure 105/66 Pulse Oximetry 99 04/11/18 07:55 04/11/18 08:00 04/11/18 09:00 Temperature Pulse Rate 56 L 58 L Respiratory Rate Blood Pressure Pulse Oximetry 96 99 04/11/18 10:00 Temperature Pulse Rate 60 Respiratory Rate Blood Pressure Pulse Oximetry Intake & Output 04/10/18 04/11/18 04/11/18 18:59 06:59 18:59 Intake Total 740 / 740 480 / 480 Output Total 150 / 150 600 / 600 Balance 590 / 590 -120 / -120 Weight 67.132 kg 66.5 kg Intake: IV 500 / 500 NS Inj 500 ML @ 500 mls/hr IV. 500 / 500 SIG ONCE ONE Rx#:[id number] Oral 240 / 240 480 / 480 Output: Urine 150 / 150 600 / 600 Other: Date of Last Bowel Movement 03/30/18 Narrative: GENERAL: NAD SKIN: Warm and dry. HEAD: Atraumatic. Normocephalic. EYES: Pupils equal and round. No scleral icterus. No injection or drainage. ENT: No nasal bleeding or discharge. Mucous membranes pink and moist. NECK: Trachea midline. No JVD. CARDIOVASCULAR: Irreg Regular rate and rhythm. RESPIRATORY: No accessory muscle use. Clear to auscultation. Breath sounds equal bilaterally. GASTROINTESTINAL: Abdomen soft, non-tender, nondistended. Hepatic and splenic margins not palpable. MUSCULOSKELETAL: Extremities without clubbing, cyanosis, or edema. No obvious deformities. NEUROLOGICAL: Awake and alert. No obvious cranial nerve deficits. Motor grossly within normal limits. Five out of 5 muscle strength in the arms and legs. Normal speech. PSYCHIATRIC: Appropriate mood and affect; insight and judgment normal. Results - Labs CBC & Chem 7: 04/11/18 06:57 04/11/18 06:57 Laboratory Results - last 24 hr 04/10/18 04/10/18 04/10/18 13:23 15:10 15:10 WBC 13.3 H RBC 4.60 Hgb 14.9 Hct 42.9 MCV 93.2 MCH 32.3 MCHC 34.6 RDW 14.2 Plt Count 377 D MPV 9.5 Prelim Diff (Auto) Slide review pending Neut % (Auto) 67.5 Lymph % (Auto) 17.1 [place] % (Auto) 7.0 Eos % (Auto) 7.4 H Baso % (Auto) 1.0 Neut # (Auto) 9.0 H Lymph # (Auto) 2.3 [place] # (Auto) 0.9 Eos # (Auto) 1.0 H Baso # (Auto) 0.1 WBC Differential . Diff Scan Auto diff confirmed Differential Comment . Platelet Estimate Normal Platelet Morphology Normal Ovalocytes 1+ H PT 11.3 INR 1.1 APTT 26.1 Sodium 135 L Potassium 5.2 H Chloride 104 Carbon Dioxide 22.3 Anion Gap 9 BUN 20 H Creatinine 1.11 H Estimated GFR 49 L POC Glucose Random Glucose 320 H Calcium 8.2 L Magnesium 2.1 Total Bilirubin 0.6 AST 52 H ALT 31 Alkaline Phosphatase 117 Total Creatine Kinase 99 Troponin I Less than 0.02 L Total Protein 6.7 Albumin 2.9 L 04/10/18 04/11/18 04/11/18 18:01 06:57 06:57 WBC 8.2 RBC 3.82 L Hgb 12.4 D Hct 34.8 L MCV 91.3 MCH 32.6 MCHC 35.7 RDW 13.8 Plt Count 256 D MPV 8.6 Prelim Diff (Auto) Neut % (Auto) 53.4 Lymph % (Auto) 23.5 [place] % (Auto) 8.4 H Eos % (Auto) 13.4 H Baso % (Auto) 1.3 Neut # (Auto) 4.4 Lymph # (Auto) 1.9 [place] # (Auto) 0.7 Eos # (Auto) 1.1 H Baso # (Auto) 0.1 WBC Differential . Diff Scan Differential Comment Auto diff final Platelet Estimate Platelet Morphology Ovalocytes PT INR APTT Sodium 138 Potassium 4.5 Chloride 105 Carbon Dioxide 24.1 Anion Gap 9 BUN 17 Creatinine 1.01 H Estimated GFR 55 L POC Glucose 269 H Random Glucose 265 H Calcium 8.4 L Magnesium Total Bilirubin 0.4 AST 21 ALT 25 Alkaline Phosphatase 110 Total Creatine Kinase Troponin I Total Protein 6.2 L Albumin 2.9 L 04/11/18 08:03 WBC RBC Hgb Hct MCV MCH MCHC RDW Plt Count MPV Prelim Diff (Auto) Neut % (Auto) Lymph % (Auto) [place] % (Auto) Eos % (Auto) Baso % (Auto) Neut # (Auto) Lymph # (Auto) [place] # (Auto) Eos # (Auto) Baso # (Auto) WBC Differential Diff Scan Differential Comment Platelet Estimate Platelet Morphology Ovalocytes PT INR APTT Sodium Potassium Chloride Carbon Dioxide Anion Gap BUN Creatinine Estimated GFR POC Glucose 244 H Random Glucose Calcium Magnesium Total Bilirubin AST ALT Alkaline Phosphatase Total Creatine Kinase Troponin I Total Protein Albumin - Imaging Impressions Chest X-Ray 04/10/18 13:15 CONCLUSION: No acute disease - Procedures none Assessment and Plan - Plan 63-year-old female with Atrial flutter/RVR -Appreciate input from cardiology -Eliquis 5 mg BID and aspirin. Plavix has been discontinued -DELANO and s/p Cardioversion s/p CABG -Continue ASA due to recent CABG HTN -Continue amiodarone, lisinopril, metoprolol, spironolactone HLD -Continue Atorvastatin Depression -Continue fluoxetine Discharge patient to home Condition on discharge: Improved Regular Diet as tolerated Ad Ludy activity Rx written:see EMR Follow-up with primary care physician
--- NOTE | 2018-04-11 23:23 | ECG ---
Date Performed: 04/10/2018 Time Performed: 16:59:14 PTAGE: 63 years EKG: Sinus rhythm Septal and lateral ST-T changes may be due to myocardial ischemia Abnormal ECG PREVIOUS TRACING : 04/10/2018 13.28 Compared to previous tracing, sinus rhythm has replaced atr ial fibrillation versus atrial tachycardia DOCTOR: Casa Haas Interpretating Date/Time 04/11/2018 23:22:46
--- NOTE | 2018-04-12 07:29 | ECG ---
Date Performed: 04/10/2018 Time Performed: 13:28:10 PTAGE: 63 years EKG: ATRIAL FLUTTER/TACHYCARDIA WITH RAPID VENTRICULAR RESPONSE NONSPECIFIC ST-T WAVE ABNORMALIT Y SEPTAL MYOCARDIAL INFARCTION, AGE INDETERMINATE PREVIOUS TRACING : 03/21/2018 05.30 Compared to previous tracing, Atrial flutter/tachycar gregg has replaced Sinus rhythm DOCTOR: Casa Haas Interpretating Date/Time 04/12/2018 07:28:21
--- NOTE | 2018-04-13 22:37 | ECHRPT ---
Indication: AFIB CONCLUSIONS The left ventricular systolic function is severely reduced with an estimated ejection fraction in th e range of 20-25%. There is global left ventricular dysfunction. The right ventricular systoilc function is mildly decreased. Trace mitral valve regurgitation. Trace aortic valve regurgitation. There is mild tricuspid valve regurgitation. Trivial pulmonary valve regurgitation. BP: / HR: Rhythm: Atrial flutter Technical Quality:Good Medications Complications Proc. Components Anesthesia at the bedside for sedation FINDINGS LEFT VENTRICLE Normal left ventricular size. The left ventricular systolic function is severely reduced with an estimated ejection fraction in th e range of 20-25%. There is global left ventricular dysfunction. RIGHT VENTRICLE The right ventricular size is normal. The right ventricular systoilc function is mildly decreased. LEFT ATRIUM The left atrial size is mildly dilated RIGHT ATRIUM The right atrial size is normal. ATRIAL APPENDAGES Normal left atrial appendage size with no evidence of thrombus formation. ATRIAL SEPTUM Normal atrial septal thickness without atrial level shunting by limited color doppler interrogation AORTA The aortic root and proximal ascending aorta are normal in size on limited imaging. MITRAL VALVE Structurally normal mitral valve. Trace mitral valve regurgitation. No mitral valve stenosis. AORTIC VALVE Trileaflet aortic valve. Trace aortic valve regurgitation. No aortic valve stenosis. TRICUSPID VALVE Structurally normal tricuspid valve. There is mild tricuspid valve regurgitation. No tricuspid valve stenosis. VESSELS Trivial pulmonary valve regurgitation. See Noguera DO (Electronically Signed) Final Date:13 April 2018 22:36
== END 2018-04-11 14:30 | disposition home or self-care (01) ==
LOC: NEPE 12:50 → INTOOBSV 14:32 → NEDA 14:32 → HCIS 17:43
PROVIDERS: ADMIT Hospitalist; ATTEND Hospitalist
DX: E03.9 Hypothyroidism, unspecified; Z79.02 Long term (current) use of antithrombotics/antiplatelets; I25.5 Ischemic cardiomyopathy; I50.20 Unspecified systolic (congestive) heart failure; Z86.14 Personal history of Methicillin resistant Staphylococcus aureus infection; I25.10 Atherosclerotic heart disease of native coronary artery without angina pectoris; R00.0 Tachycardia, unspecified; Z95.1 Presence of aortocoronary bypass graft; Z85.828 Personal history of other malignant neoplasm of skin; Z79.4 Long term (current) use of insulin; Z79.01 Long term (current) use of anticoagulants; I48.92 Unspecified atrial flutter; Z16.24 Resistance to multiple antibiotics; N18.3 Chronic kidney disease, stage 3 (moderate); F32.9 Major depressive disorder, single episode, unspecified; Z79.82 Long term (current) use of aspirin; E87.5 Hyperkalemia; E11.51 Type 2 diabetes mellitus with diabetic peripheral angiopathy without gangrene; I13.0 Hypertensive heart and chronic kidney disease with heart failure and stage 1 through stage 4 chronic kidney disease, or unspecified chronic kidney disease; Z95.5 Presence of coronary angioplasty implant and graft; E78.5 Hyperlipidemia, unspecified; I48.91 Unspecified atrial fibrillation; I95.9 Hypotension, unspecified; K04.7 Periapical abscess without sinus; E11.22 Type 2 diabetes mellitus with diabetic chronic kidney disease